=== PATIENT | female | born 1990 | race Caucasian/White ===

== ENCOUNTER 2019-08-22 09:29 | Emergency (ER) | payer SELFPAY ==
--- NOTE | 2019-08-22 09:44 | ED.GENADULT ---
HPI - General Adult General Chief complaint: Dental/Oral Stated complaint: swollen right side of face Source: patient and RN notes reviewed Mode of arrival: ambulatory Limitations: no limitations History of Present Illness HPI narrative: This is a 29 years old female presents to the office for an evaluation of facial swollen since this morning. She first noticed it last night when she went to sleep; but it was not as big. Denies facial trauma. Denies sinus congestion, fever, feeling malaise, nauseous, vomiting, or feeling ill. She is a smoker. Related Data Allergies Allergy/AdvReac Type Severity Reaction Status Date / Time No Known Allergies Allergy Unknown Verified 03/31/18 15:26 Review of Systems Review of Systems: Narrative: CONSTITUTIONAL: Denies fever,or feeling ill ENT: Denies rhinorrhea, congestion, sore throat, otalgia or dental pain. CARDIOVASCULAR: Denies chest pain RESPIRATORY: Denies dyspnea, cough GASTROINTESTINAL: Denies abdominal pain, nausea, vomiting, diarrhea. SKIN: Denies rash/insect bite MUSCULOSKELETAL: Denies joints pain NEUROLOGIC: Denies lightheaded PMFSH Social History Social History (Updated 08/22/19 @ 10:01 by MARLEY Vargas) Smoking status: Current every day smoker Comments At time of signature, I agree with nursing past medical, surgical, social and family history. There is no relevant family history pertinent to the presenting complaint. Exam Narrative: Exam Narrative: GENERAL: This is a well-nourished, well-developed patient, in no apparent distress. Right side facial appears swollen, tender to palpation without erythema or lymphadenititis. No TMJ tenderness. EYES: sclera clear/white. Vision is grossly intact. EARS: External ears normal, auditory canals clear and without drainage, TMs normal without perforation. Hearing grossly intact. NOSE: External nose normal with no obvious nasal discharge, nares without redness, no rhinorrhea. THROAT: Mucous membranes moist, posterior pharynx clear.Teeth are very carious throughout; no obvious gum swollen/tenderness. NECK: Neck supple, non-tender without lymphadenopathy, masses or thyromegaly. CARDIOVASCULAR: Regular rate and rhythm without murmurs, gallops, or rubs. RESPIRATORY: Clear to auscultation. Breath sounds equal bilaterally. No wheezes, rales, or rhonchi. GASTROINTESTINAL: Abdomen soft, non-tender, nondistended. Bowel sounds are active. No hepato-splenomegaly, or palpable masses. No guarding. NEURO: awake, alert, and oriented to person, place and time. There were no obvious focal neurologic abnormalities. Steady gait [place] Coma Scale Eye Opening: Spontaneous 4 [place] Coma Scale Motor: Obeys Commands 6 Karan Coma Scale Verbal: Oriented 5 Course Vital Signs Vital signs: Vital Signs Temperature 97.8 F 08/22/19 09:45 Pulse Rate 99 08/22/19 09:45 Respiratory Rate 16 08/22/19 09:45 Blood Pressure 140/64 08/22/19 09:45 Pulse Oximetry 99 08/22/19 09:45 Temperature 97.8 F 08/22/19 09:45 Pulse Rate 99 08/22/19 09:45 Respiratory Rate 16 08/22/19 09:45 Blood Pressure 140/64 08/22/19 09:45 Pulse Oximetry 99 08/22/19 09:45 Medical Decision Making MDM Narrative Medical decision making narrative: Prophylactic antibiotic provide based on patient risk factor which include smoking and poor dental hygienes. Discharge instructions reviewed with patient, as well as provided in writing per nursing staff. The instructions also include specific and strict return/GO TO THE ER as well as f/u information. All questions have been answered, and the patient deny any further questions with discharge and discharge plan. Differential Diagnosis Differential Diagnosis: Gingivitis, sinusitis, cellulitis, TMJ Vital Signs Vital Signs: Vital Signs Temperature 97.8 F 08/22/19 09:45 Pulse Rate 99 08/22/19 09:45 Respiratory Rate 16 08/22/19 09:45 Blood Pressure 140/64 08/22/19 09:45 Pulse Oxi
[2019-08-22 09:45] VITALS: BP 140/64; PULSE 99; RESP 16; TEMP 36.6; O2SAT 99
== END 2019-08-22 10:04 | disposition home or self-care (01) ==
PROVIDERS: Emergency Provider Nurse Practitioner; PCP Emergency Medicine
DX: K11.8 Other diseases of salivary glands (principal); F17.200 Nicotine dependence, unspecified, uncomplicated
CPT/HCPCS: 99213; G0463

== ENCOUNTER 2024-04-02 14:29 | Emergency (ER) | payer BC, SELFPAY ==
[2024-04-02 15:10] VITALS: BP 121/72; PULSE 89; RESP 20; TEMP 37.2; O2SAT 100
[2024-04-02 15:38] LABS: EDCOVIDSCREEN Negative (Negative); EDINFLUASCREEN Negative (Negative); EDINFLUBSCREEN Negative (Negative)
--- NOTE | 2024-04-02 15:40 | ED_ITS ---
HPI - URI/Sore Throat General Chief Complaint: Upper Respiratory Infection Stated Complaint: flu like symptoms Time Seen by Provider: 04/02/24 15:40 Source: patient, RN notes reviewed and old records reviewed Mode of arrival: ambulatory Limitations: no limitations History of Present Illness HPI Narrative: 33-year-old female presents to the [facility] with 5 day history of cough, congestion and body aches. Reports fever. Has taken both Tylenol cold medicine as well as Advil cold medicine. Onset (ago): day(s) (3) Related Data Home Medications ?Medication ?Instructions ?Recorded ?Confirmed ?Last Taken ?Type No Home Medications 04/02/24 04/02/24 Unknown History Allergies Allergy/AdvReac Type Severity Reaction Status Date / Time No Known Allergies Allergy Unknown Verified 04/02/24 15:28 Review of Systems Review of Systems: All systems reviewed & are unremarkable except as noted in HPI and below Constitutional: Constitutional: Reports as per HPI, Reports body ache(s) and Reports fever(s) ENT: Reports as per HPI Cardiovascular: Cardiovascular: Reports no additional cardiovascular complaints, Denies chest pain and Denies dyspnea Respiratory: Respiratory: Reports as per HPI, Denies chest congestion, Reports cough and Denies dyspnea Musculoskeletal: Musculoskeletal: Reports no additional musculoskeletal complaints Integumentary/Breasts: Skin/Breast: Reports system reviewed and no additional complaints, except as docu PMFSH Social History Social History Smoking status: Current every day smoker Comments At the time of my signature, I reviewed and agree with the nursing past medical, surgical, social, and family history. There is no relevant family history pertinent to the patient complaint. Exam Const: General: cooperative, healthy appearing, comfortable, no acute distress , well developed, alert and well nourished Nutritional Appearance: well nourished Orientation/consciousness: patient oriented x3 Limitations: no limitations HENMT: Head: normal to inspection Ears: hearing grossly normal bilaterally, external ears normal, TM's normal bilaterally, EAC's normal, mastoids normal and no periauricular adenopathy Mouth: Yes Normal oral and palatal mucosa present, Yes lip normal, Yes tongue normal and Yes moist mucous membranes Throat: posterior oropharynx normal, uvula midline, postnasal drainage and no uvular edema Eyes: General: appearance normal, both eyes and all related structures Alignment and Position: alignment normal Neck: Neck: normal visual inspection, full ROM, no lymphadenopathy and no meningeal signs Chest: Chest palpation & inspection: normal inspection of the chest Resp: Effort & Inspection: normal respiratory effort and able to speak in complete sentences Auscultation: clear to auscultation bilaterally, no crackles, no rales, no rhonchi and no wheezes Cardio: Rate: regular rate Skin: General skin exam: normal color and no rashes or lesions noted Neuro: General: patient oriented x3, gait normal, moves all extremities and no meningeal signs Cognition (Neuro): normal cognition Speech: normal speech Gait exam (Neuro): Normal gait present Extrem: General: normal to inspection, full ROM, capillary refill normal and normal gait Psych: Appearance: grossly normal and well kempt Mental Status: mental status grossly normal Speech and movement: Normal speech and movement present and Clear speech present Affect: normal affect Attitude: cooperative Course Course Level of Care: Express Care Visit Vital Signs Vital signs: Vital Signs Temperature 99 F 04/02/24 15:10 Pulse Rate 89 04/02/24 15:10 Respiratory Rate 20 04/02/24 15:10 Blood Pressure 121/72 04/02/24 15:10 Pulse Oximetry 100 04/02/24 15:10 Oxygen Delivery Room Air 04/02/24 15:10 Temperature 99 F 04/02/24 15:10 Pulse Rate 89 04/02/24 15:10 Respiratory Rate 20 04/02/24 15:10 Blood Pressure 121/72 04/02/24 15:10 Pulse Oximetry 100 04/02/24 15:10 Oxygen Delivery Room Air 04/02/24 15:10 Reviewed MDM - URI/Sore Throat MDM Narrative Medical decision making narrative: Patient sitting comfortably in exam room. Nontoxic, vitals stable. Patient in no acute distress. Patient presents with 5 day history of URI symptoms. Flu and COVID are negative. No acute findings noted on exam. Patient appropriate for outpatient treatment and follow-up Discharge instructions reviewed with patient, as well as provided in writing per nursing staff. The instructions also include specific and strict return/GO TO THE ER as well as f/u information. All questions have been answered, and the patient deny any further questions with discharge and discharge plan. Some parts of this dictation were generated by voice recognition software and may contain typographical and/or grammatical inaccuracies. Differential Diagnosis Differential diagnosis: Likely upper respiratory infection, otitis media, sinusitis, viral infection, bronchitis and influenza Lab Data Labs: Lab Results 04/02/24 Range/Units 15:15 POC Influenza A Ag Negative (Negative) POC Influenza B Ag Negative (Negative) POC SARS CoV-2 Ag Negative (Negative) Reviewed Critical Care Time Critical Care Time Critical Care Time: No Discharge Plan Discharge Clinical Impression: Upper respiratory infection Qualifiers: URI type: unspecified viral URI Qualified Code(s): J06.9 - Acute upper respiratory infection, unspecified Patient Disposition: Home, Self-Care Condition: Stable Instructions: Antibiotic Form, Upper Respiratory Infection (DC) Additional Instructions: Your rapid COVID test were negative Your rapid flu test was negative Your symptoms are likely due to a viral illness, which is not treated with antibiotics. Typically viral infections last 7-10 days, can linger for couple of weeks. It is very important to treat your symptoms. Drink plenty of water, Gatorade, Pedialyte, ice pops or Jell-O. -Alternate Tylenol and Motrin per package directions for fever or pain. You can alternate every 4 hours -Antihistamine medication such as Zyrtec/Claritin/Akua during the day can help improve symptoms. -doing daily nasal irrigations can help relieve pressure your sinuses. Things like a Neti pot -Use Flonase twice a day for 5 days then daily to help reduce the inflammation and dry up your sinuses. -You can also use Mucinex. Be sure to drink plenty of water with this medicat ion at least 8 ounces with every dose and it is important to drink 8 to 10 glasses of water per day. Water is a natural decongestant -Eat and drink things that are easy to swallow, like tea or soup, or popsicles. -Oral rinses such as: Salt water gargles and/or may use topical anesthetic (eg. Chloraseptic spray) or lozenges to relieve dryness or throat pain). -Frequent hand washing or hand director veterinary is one of the best ways to prevent spread of infection. -Using a vaporizer or humidifier at night will also help thin secretions and help with coughing up phlegm. -Follow up with primary care provider in 7-10 days if condition is not improving - For new or worsening symptoms go directly to the nearest ER Patient Language: Slovak Prescriptions: No Action No Home Medications Follow-up/Referrals: Jay Barrett MD [Primary Care Provider] - Stand Alone Forms: Work/School Release IP Time of Disposition: 15:56
--- OUTSIDE RECORDS SUMMARY | 2024-04-09 23:32 | XMS_ITS | Referral Summary ---
Author Organization [address] Address [facility] [place] [address] Care Team Providers Care Employee Benefits Director Name Role Phone Jay Barrett MD Primary Care Provider [phone] Allergies No known active allergies Medications naproxen (NAPROSYN) 500 mg tablet Take 1 tablet (500 mg total) by mouth 2 (two) times a day with meals 30 tablet 08/20/2023 Active chlorhexidine (PERIDEX) 0.12 % solution Apply 15 mL to the mouth or throat 2 (two) times a day 120 mL 08/20/2023 Active traMADoL (ULTRAM) 50 mg tablet Take 1 tablet (50 mg total) by mouth every 6 (six) hours for 3 days 12 tablet 08/20/2023 Active Active Problems Problem Noted Date Diagnosed Date Pityriasis versicolor 06/08/2023 Immunizations Name Administration Dates Next Due DT 10/19/1995 DTP 08/17/1995, 1,1990,10/27 Hep A, Unspecified 10/15/2000 Hep B, Adolescent or Pediatric 01/28/1996,1995,08/17/1995 HiB 11/15/1991, 1,1990,09/29 Influenza, Quadrivalent, Eloise l Culture-based MDCK, Preservative Free, Antibiotic Free, Intramuscular 12/19/2019 Influenza, Quadrivalent, Spl it, Preservative Free, Intramuscular 01/24/2018,01/23/2018 Influenza, Trivalent, IM (MDV) 04/12/2013 Influenza, Trivalent, Preser vative Free, Intramuscular 01/13/2017 Influenza, Whole 02/07/2005 MMR 08/17/1995,11/15/1991 OPV 10/19/1995, 6,1990,09/29 Tdap 08/15/2014 Social History Tobacco Use Types Packs/Day Years Used Date Smoking Tobacco: Every Day Cigarettes 0.5 14 Started: 2010 Personal Safety Answer Date Recorded Have you ever been in or are you currently in a harmful physical or emotional relationship or is someone making you feel afraid or unsafe? 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 Gender Identity Not on file Sexual Orientation Not on file Occupation Industry Job Start Date Job End Date [employer] Not on file Not on file Not o n file Last Filed Vital Signs Vital Sign Reading Time Taken Comments Blood Pressure 145/97 08/20/2023 8:00 AM CDT Pulse 106 08/20/2023 8:12 AM CDT Temperature 36.9 ??C (98.4 ??F) 08/20/2023 8:00 AM CD T Respiratory Rate 18 08/20/2023 8:00 AM CDT Oxygen Saturation 100% 08/20/2023 8:00 AM CDT Inhaled Oxygen Concentration - - Weight 81.6 kg (180 lb) 08/20/2023 8:00 AM CDT Height 170.2 cm (5' 7 ) 08/20/2023 8:00 AM CDT Body Mass Index 28.19 08/20/2023 8:00 AM CDT Plan of Treatment Not on file Procedures Procedure Name Priority Date/Time Associated Diagnosis Comments HIGH RISK HPV DNA DETECTION WITH GENOTYPING Routine 06/11/2023 10:55 AM CDT Screening for malignant neoplasm of cervix from Last 3 Months or Most Recently Relevant to Health Maintenance Results * (ABNORMAL) High Risk HPV DNA Detection with Genotyping (Molecular component) (06/11/2023 10:55 AM CDT) HPV HR 16 Not Detected Not Detected [facility] Comment:Testing performed by : [facility], [address] [place]., [address] HPV HR 18 Not Detected Not Detected [facility] Comment:Testing performed by : [facility], [address] [place]., [address] HPV HR Non 16/18 Detected(A) Not Detected [facility] Comment: Interpretive Data Nucleic acid amplification for detection of high-risk Human Papilloma virus (HPV) is performed by the Chanel Lazaro 6800 HPV test. ??This assay specifically detects HPV-16 and HPV-18 genotypes. ??The following HPV genotypes are detected as high-risk HPV: ?? HPV-31, 33, 35, ,39, 45, 51, 52, 56, 58, 59, 66, and 68. ??This assay has been approved by the [place] Food and Drug Administration for detection of HPV in cervical specimens collected by a physician using an endocervical brush/spatula or cervical broom and placed in the ThinPrep Pap Test PreservCyt collection containers. ??The performance characteristics of this test have been verified by the [facility] Molecular Infectious Disease laboratory. Correlate with separately reported cytology results, as applicable. Interpretive data last revised 22 Testing performed by: [facility], [address] [place]., [address] Endocervical 06/11/2023 10:5 5 AM CDT 06/12/2023 12:07 PM CDT Narrative [facility] - 06/13/2023 1:42 AM CDT Clinical history and diagnosis->Liquid-based PAP test with high risk HPV test- Z12.4 Number of vials->1 Testing type->Screening Last menstrual period (date if known)->05/17/23 Erma Galeano DO LAB BODY FLUIDS AND STO OLS ORDERABLES Final Result [facility] [id number] Department [place] [address] [facility] from Last 3 Months or Most Recently Relevant to Health Maintenance Insurance [employer] Care Teams Employee Benefits Director Relationship Specialty Start Date End Date Jay Barrett MD PCP - General 06/21/18
--- OUTSIDE RECORDS SUMMARY | 2024-04-09 23:32 | XMS_ITS | Clinical Summary ---
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 Gender Identity Not on file Sexual Orientation Not on file Occupation Industry Job Start Date Job End Date [employer] Not on file Not on file Not o n file Obstetrics History Para Term AB IAB SAB Ectopic Multiple Livin g Live Births 2 2 2 2 2 Date Outcome GA Total Labor Labor/2nd/3rd Weight Sex Type Anes PTL Roxie A1 A5 Name Clin 11/12 Term 40w 0d 3.402 kg (7 lb 8 oz) M Vaginal Living Complications:None 05/26 Term 42w 0d 3.459 kg (7 lb 10 oz) F Vaginal Living Complications:None Last Filed Vital Signs Vital Sign Reading [...] 08/20/2023 8:00 AM CDT Plan of Treatment Health Maintenance Due Date Last Done Comments Depression Screening 1990 Hepatitis C Screening 1990 Pneumococcal vaccine <65 (1 of 2 - PCV) 1996 Varicella Vaccines (1 of 2 - 13+ 2-dose series) 07/23/2003 Covid-19 Vaccine (3 - season) 2023 09/07/2020, 08/17/2020 Influenza Vaccine (#1) 2023 0, 01/24/2018, 01/23/2018, Additional history exists Cervical Cancer Screening 06/10/2024 06/11/2023, Regular Well Visit/Exam 18-64 06/10/2024 06/11/2023 DTaP/Tdap/Td Vaccine (6 - Td or Tdap) 08/15/2024 08/15/2014, 10/19/1995, 08/17/1995, Additional history exists HPV Vaccines Aged Out No longer eligi ble based on patient's age to complete this topic Procedures Procedure Name Priority Date/Time Associated Diagnosis Comments HIGH RISK HPV DNA DETECTION WITH GENOTYPING Routine 06/11/2023 10:55 AM CDT Screening for malignant neoplasm of cervix from Last 3 Months or Most Recently Relevant to Health Maintenance Results * (ABNORMAL) High Risk HPV DNA Detection with Genotyping (Molecular component) (06/11/2023 10:55 AM CDT) HPV HR 16 Not Detected Not Detected [facility] Comment:Testing performed by : [facility], [address] [place]., [address] HPV HR 18 Not Detected Not Detected [facility] Comment:Testing performed by : [facility], [address] [facility], [place] [address], [place] [address] HPV HR Non 16/18 Detected(A) Not Detected [facility] Comment: Interpretive Data Nucleic acid amplification for [...] this test have been verified by the [facility] Molecular Infectious Disease laboratory. Correlate with separately reported cytology results, as applicable. Interpretive data last revised 22 Testing performed by: [facility], [address] [place]., [address] Endocervical 06/11/2023 10:5 5 AM CDT 06/12/2023 12:07 PM CDT [facility] - 06/13/2023 1:42 AM CDT Clinical history and diagnosis->Liquid-based PAP test with high risk HPV test- Z12.4 Number of vials->1 Testing type->Screening Last menstrual period (date if known)->05/17/23 Erma Galeano DO LAB BODY FLUIDS AND STO OLS ORDERABLES Final Result [facility] [id number] Department [place] [address] [facility] from Last 3 Months or Most Recently Relevant to Health Maintenance Insurance [facility] CHOICE PLUS Care Teams Firefighter Type One Relationship Specialty Start Date End Date Jay Barrett MD PCP - General 06/21/18
--- OUTSIDE RECORDS SUMMARY | 2024-04-09 23:32 | XMS_ITS | Data Portability ---
Author Organization [facility] Address [address] [place] [address] Assessment No assessment recorded. Plan of Treatment Reminders Order Date Submit Date Provider Last Modified By Organization Details Last Modified Time Details Appointments None recorded. Lab lipid panel, serum 2014 015 [facility], [address] [place] [address], [address], [place], [address], 5 06:29:07 TSH, serum or plasma 2014 015 [facility], [address] [place] [address], [address], [place], [address], 5 06:29:07 CBC w/ auto diff 2014 015 [facility], [address] [place] [address], [address], [place], [address], 5 06:29:04 CMP, serum or plasma 2014 015 [facility], [address] [place] [address], [address], [place], [address], 5 06:29:06 pap, IG + CT/NG/TV + reflex HR HPV 2017 018 [facility] ([facility] [address] [place], [address], 8 22:33:57 Referral None recorded. Procedures None recorded. Surgeries None recorded. Imaging None recorded. Medication Orders nicotine 14 mg/24 hr daily transderma l patch 2017 018 [id number], [address] [facility], [place], [place], [id number], 8 15:42:02 Patient TargetsNo targets recorded. Patient Instructions Encounter Date Encounter Id Patient Instructions Last Modified By Organization Details Last Modified Time 08/15/2014 [id number] rash: care instructions dbogue Not available 08/15/2014 10:40:11 tinea versicolor : care instructions dbogue Not available 08/15/2014 10:40:12 06/12/2017 [id number] Quitting Tobacco : Care Instructions [email or web address] Not available 06/12/2017 15:41:57 26y presents for contraception counseling 1.) Contraception ? desires BTL, WILL consent signed today, currently on Depo, pt concerned about bleeding episodes on Depo 2.) Will return for annual and pap 3.) Tob use ? discussed cessation, Rx: nicotine patch 4.) BMI - Assessed pt readiness to make lifestyle changes to achieve weight loss. Determined weight loss goals and intervention strategies (diet, physical activity, behavioral modification). 5.) s/p flu vaccine 6.) RTC in 2wks for annual 7.) A total of 30 minutes was spent with the patient where more than 50% of face to face time was spent in counseling/coordin ation of care. [email or web address] Not available 06/13/2017 12:12:11 06/25/2017 [id number] 26y presents for annual exam 1.) Annual exam - Reviewed self-breast exam techniques. No CBE performed at this annual (in accordance with ACOG, ACS, and the National Comprehensive Cancer Network recommendation of a clinical breast examination for women age 20-39 every 1? 3 years). Pap and pelvic performed 2.) Contraception ? desires BTL, WILL consent signed 06/12/17 3.) Tob use ? discussed cessation, Rx: nicotine patch at last visit 4.) STI screening ? declined, but willing to get ct/gc 5.) RTC in 12 months [email or web address] Not available 06/25/2017 18:56:44 07/31/2017 [id number] 27y s/p L/S BTL on 07/17/17 1.) PO ? doing well 2.) Contraception ? B TL 3.) Tob use ? discussed cessation, on nicotine patch 4.) RTC in 12 months Not available 07/31/2017 14:06:28 Reason for Referral None Reported. Results Created Date Observation Date Name Description Value Unit Range Abnormal Flag Note LastModifiedBy Organization Detail LastModifiedTime 08/16/19 15 08/15/2014 CBC w/ auto diff WBC 5.1 x10e3 /uL 3.4-10 .8 Not Available [facility] ([facility]) [address] [place], [address], 08/16/2014 06:29:04 08/16/19 15 08/15/2014 CBC w/ auto diff RBC 4.83 x10e6 /uL 3.77-5 .28 Not Available [facility] ([facility]) [address] [place], [address], 08/16/2014 06:29:04 08/16/19 15 08/15/2014 CBC w/ auto diff hemoglobin 14.8 g/dL 11.1-1 5.9 Not Available [facility] ([facility]) [address] [place], [address], 08/16/2014 06:29:04 08/16/19 15 08/15/2014 CBC w/ auto diff hematocrit 43.1 % 34.0-4 6.6 Not Available [facility] ([facility]) [address] [place], [address], 08/16/2014 06:29:04 08/16/19 15 08/15/2014 CBC w/ auto diff MCV 89 fL 79-97 Not Available [facility] ([facility]) [address] [place], [address], 08/16/2014 06:29:04 08/16/19 15 08/15/2014 CBC w/ auto diff MCH 30.6 pg 26.6-3 3.0 Not Available [facility] ([facility]) [address] [facility], [place], [address], 08/16/2014 06:29:04 08/16/19 15 08/15/2014 CBC w/ auto diff MCHC 34.3 g/dL 31.5-3 5.7 Not Available [facility] ([facility]) [address] [facility], [place], [address], 08/16/2014 06:29:04 08/16/19 15 08/15/2014 CBC w/ auto diff RDW 13.3 % 12.3-1 5.4 Not Available [facility] ([facility]) [address] [place], [address], 08/16/2014 06:29:04 08/16/19 15 08/15/2014 CBC w/ auto diff neutrophils 51 % Not Available [facility] ([facility]) [address] [place], [address], 08/16/2014 06:29:04 08/16/19 15 08/15/2014 CBC w/ auto diff lymphs 42 % Not Available [facility] ([facility]) [address] [place], [address], 08/16/2014 06:29:04 08/16/19 15 08/15/2014 CBC w/ auto diff monocytes 6 % Not Available [facility] ([facility]) [address] [place], [address], 08/16/2014 06:29:04 08/16/19 15 08/15/2014 CBC w/ auto diff eos 1 % Not Available [facility] ([facility]) [address] [place], [address], 08/16/2014 06:29:04 08/16/19 15 08/15/2014 CBC w/ auto diff basos 0 % Not Available [facility] ([facility]) [address] [place], [address], 08/16/2014 06:29:04 08/16/19 15 08/15/2014 CBC w/ auto diff immature cells GUEST ATTENDANT Not Available [facility] ([facility]) [address] [place], [address], 08/16/2014 06:29:04 08/16/19 15 08/15/2014 CBC w/ auto diff neutrophils (absolute) 2.6 x10e3 /uL 1.4-7. 0 Not Available [facility] ([facility]) [address] [place], [address], 08/16/2014 06:29:04 08/16/19 15 08/15/2014 CBC w/ auto diff lymphs (absolute) 2.2 x10e3 /uL 0.7-3. 1 Not Available [facility] ([facility]) [address] [place], [address], 08/16/2014 06:29:04 08/16/19 15 08/15/2014 CBC w/ auto diff monocytes(ab solute) 0.3 x10e3 /uL 0.1-0. 9 Not Available [facility] ([facility]) [address] [place], [address], 08/16/2014 06:29:04 08/16/19 15 08/15/2014 CBC w/ auto diff eos (absolute) 0.1 x10e3 /uL 0.0-0. 4 Not Available [facility] ([facility]) [address] [place], [address], 08/16/2014 06:29:04 08/16/19 15 08/15/2014 CBC w/ auto diff baso (absolute) 0.0 x10e3 /uL 0.0-0. 2 Not Available [facility] ([facility]) [address] [place], [address], 08/16/2014 06:29:04 08/16/19 15 08/15/2014 CBC w/ auto diff immature granulocytes 0 % Not Available [facility]) [address] [facility] [place], [address], 08/16/2014 06:29:04 08/16/19 15 08/15/2014 CBC w/ auto diff immature grans (abs) 0.0 x10e3 /uL 0.0-0. 1 Not Available [facility] ([facility]) [address] [facility], [place], [address], 08/16/2014 06:29:04 08/16/19 15 08/15/2014 CBC w/ auto diff NRBC GUEST ATTENDANT Not Available [facility] ([facility]) [address] [place], [address], 08/16/2014 06:29:04 08/16/19 15 08/15/2014 CBC w/ auto diff hematology comments: GUEST ATTENDANT Not Available [facility] ([facility]) [address] [facility], [place], [address], 08/16/2014 06:29:04 08/16/19 15 08/16/2014 CMP, serum or plasm a glucose, serum 95 mg/dL 65-99 Not Available [facility] ([facility]) [address] [place], [address], 08/16/2014 06:29:05 08/16/19 15 08/16/2014 CMP, serum or plasm a BUN 7 mg/dL 6-20 Not Available [facility] ([facility]) [address] [place], [address], 08/16/2014 06:29:05 08/16/19 15 08/16/2014 CMP, serum or plasm a creatinine, serum 0.74 mg/dL 0.57-1 .00 Not Available [facility] ([facility]) [address] [place], [address], 08/16/2014 06:29:05 08/16/19 15 08/16/2014 CMP, serum or plasm a eGFR if nonafricn AM 114 mL/mi n/1.7 3 >59 Not Available [facility] ([facility]) [address] [place], [address], 08/16/2014 06:29:05 08/16/19 15 08/16/2014 CMP, serum or plasm a eGFR if africn AM 131 mL/mi n/1.7 3 >59 Not Available [facility] ([facility]) [address] [place], [address], 08/16/2014 06:29:05 08/16/19 15 08/16/2014 CMP, serum or plasm a BUN/creatini ne ratio 9 8-20 Not Available [facility] ([facility]) [address] [place], [address], 08/16/2014 06:29:05 08/16/19 15 08/16/2014 CMP, serum or plasm a sodium, serum 144 mmol/ L 134-14 4 Not Available [facility] ([facility]) [address] [place], [address], 08/16/2014 06:29:05 08/16/19 15 08/16/2014 CMP, serum or plasm a potassium, serum 4.1 mmol/ L 3.5-5. 2 Not Available [facility] ([facility]) [address] [place], [address], 08/16/2014 06:29:05 08/16/19 15 08/16/2014 CMP, serum or plasm a chloride, serum 105 mmol/ L 97-108 Not Available [facility] ([facility]) [address] [place], [address], 08/16/2014 06:29:05 08/16/19 15 08/16/2014 CMP, serum or plasm a carbon dioxide, total 22 mmol/ L 18-29 Not Available [facility] ([facility]) [address] [facility] [place], [address], 08/16/2014 06:29:05 08/16/1908/16/2014 CMP, serum or plasm a calcium, serum 9.5 mg/dL 8.7-10 .2 Not Available [facility] ([facility]) [address] [facility] [place], [address], 08/16/2014 06:29:05 08/16/19 15 08/16/2014 CMP, serum or plasm a protein, total, serum 6.8 g/dL 6.0-8. 5 Not Available [facility] ([facility]) [address] [facility] [place] [place], [address], 08/16/2014 06:29:05 08/16/19 15 08/16/2014 CMP, serum or plasm a albumin, serum 4.4 g/dL 3.5-5. 5 Not Available [facility] ([facility]) [address] [facility] [place] [place], [address], 08/16/2014 06:29:05 08/16/19 15 08/16/2014 CMP, serum or plasm a globulin, total 2.4 g/dL 1.5-4. 5 Not Available [facility] ([facility]) [address] [facility] [place] [place], [address], 08/16/2014 06:29:05 08/16/19 15 08/16/2014 CMP, serum or plasm a A/G ratio 1.8 1.1-2. 5 Not Available [facility] ([facility]) [address] [facility] [place] [place], [address], 08/16/2014 06:29:05 08/16/19 15 08/16/2014 CMP, serum or plasm a bilirubin, total 0.4 mg/dL 0.0-1. 2 Not Available [facility] ([facility]) [address] [facility] [place] [place], [address], 08/16/2014 06:29:05 08/16/19 15 08/16/2014 CMP, serum or plasm a alkaline phosphatase, S 58 IU/L 39-117 Not Available [facility] ([facility]) [address] [place], [address], 08/16/2014 06:29:05 08/16/19 15 08/16/2014 CMP, serum or plasm a AST (SGOT) 15 IU/L 0-40 Not Available [facility] ([facility]) [address] [facility], [place], [address], 08/16/2014 06:29:05 08/16/19 15 08/16/2014 CMP, serum or plasm a ALT (SGPT) 7 IU/L 0-32 Not Available [facility] ([facility]) [address] [place], [address], 08/16/2014 06:29:05 08/16/19 15 08/16/2014 lipid panel , serum cholesterol, total 136 mg/dL 100-18 9 Not Available [facility] ([facility]) [address] [place], [address], 08/16/2014 06:29:06 08/16/19 15 08/16/2014 lipid panel , serum triglyceride s 73 mg/dL 0-114 Not Available [facility] ([facility]) [address] [place], [address], 08/16/2014 06:29:06 08/16/19 15 08/16/2014 lipid panel , serum HDL cholesterol 35 mg/dL >39 low ACCOR DING TO ATP-I II GUIDE LINES , HDL-C >59 MG/DL IS CONSI DERED A NEGAT KYARA RISK FACTO R FOR CHD. Not Available [facility] ([facility]) [address] [place], [address], 08/16/2014 06:29:06 08/16/19 15 08/16/2014 lipid panel , serum VLDL cholesterol colin 15 mg/dL 5-40 Not Available [facility] ([facility]) [address] [facility], [place], [address], 08/16/2014 06:29:06 08/16/19 15 08/16/2014 lipid panel , serum LDL cholesterol calc 86 mg/dL 0-119 Not Available [facility] ([facility]) [address] [facility], [place], [address], 08/16/2014 06:29:06 08/16/19 15 08/16/2014 lipid panel , serum comment: GUEST ATTENDANT Not Available [facility] ([facility]) [address] [facility], [place], [address], 08/16/2014 06:29:06 08/16/19 15 08/16/2014 TSH, serum or plasm a TSH 1.610 uIU/m L 0.450- 4.500 Not Available [facility] ([facility]) [address] [facility], [place], [address], 08/16/2014 06:29:07 06/26/19 18 06/30/2017 pap, IG + CT/NG /TV + refle x HR HPV diagnosis: [facility] NEGAT KYARA FOR INTRA EPITH ELIAL LESIO N AND OUMAR KARIMI . Perfo rmed at: WB Not Available [facility] (Lab) [address] [place], [address], 06/30/2017 22:33:57 06/26/19 18 06/30/2017 pap, IG + CT/NG /TV + refle x HR HPV specimen adequacy: [facility] Satis facto ry for evalu ation . Endoc ervic al and/o r squam ous metap lasti c cells (endo cervi colin compo nent) are prese nt. Perfo rmed at: WB Not Available [facility] ([facility]) [address] [place], [address], 06/30/2017 22:33:57 06/26/19 18 06/30/2017 pap, IG + CT/NG /TV + refle x HR HPV performed by: [facility] Fatmata Squires , José Miguel echno logis t Perfo rmed at: WB Not Available [facility] (Lab) [address] [place], [address], 06/30/2017 22:33:57 06/26/19 18 06/30/2017 pap, IG + CT/NG /TV + refle x HR HPV Pap smear, 1 slide . Perfo rmed at: WB Not Available [facility] (Lab) [address] [facility], [place], [address], 06/30/2017 22:33:57 06/26/19 18 06/30/2017 pap, IG + CT/NG /TV + refle x HR HPV note: PAPSMR The Pap smear is a scree dalton test desig cassidy to aid in the detec tion of farhat ligna nt and malig nant condi tions of the uteri ne cervi x. It is not a diagn ostic proce dure and shoul d not be used as the sole means of detec ting cervi colin cance r. Both false -posi tive and false -nega tive repor ts do occur . . Perfo rmed at: WB Not Available [facility] (Lab) [address] [facility], [place], [address], 06/30/2017 22:33:57 06/26/19 18 06/30/2017 pap, IG + CT/NG /TV + refle x HR HPV test methodology: IGLPAP This liqui d based ThinP rep(R ) pap test was scree cassidy with the use of an image guide d terrance cadena. Perfo rmed at: WB Not Available [facility] (Lab) [address] [place], [address], 06/30/2017 22:33:57 06/26/19 18 06/30/2017 pap, IG + CT/NG /TV + refle x HR HPV comments NEGHPV The HPV DNA refle x crite santos were not met with this speci men resul t there fore, no HPV testi ng was perfo rmed. . Perfo rmed at: WB Not Available [facility] (Lab) [address] [facility], [place], [address], 06/30/2017 22:33:57 06/26/19 18 06/30/2017 pap, IG + CT/NG /TV + refle x HR HPV chlamydia, nuc. acid Negati ve negati ve Perfo rmed at: =G Not Available [facility] (Lab) [address] [facility], [place], [address], 06/30/2017 22:33:57 06/26/19 18 06/30/2017 pap, IG + CT/NG /TV + refle x HR HPV gonococcus, nuc. acid amp Negati ve negati ve Perfo rmed at: =G Not Available [facility] (Lab) [address] [facility], [place], [address], 06/30/2017 22:33:57 06/26/19 18 06/30/2017 pap, IG + CT/NG /TV + refle x HR HPV trich vag by ISAIAS Negati ve negati ve Perfo rmed at: =G Not Available [facility] (Lab) [address] [place], [address], 06/30/2017 22:33:57 Result Notes None recorded. Problems Name Problem SNOMED Code Status Onset Date Resolution Date Notes Provider Name and Address Organization Details Recorded Time Pityriasis versicolor 41571493 Active Nicole tripp [facility] 5 10:40:11 Problem Notes None recorded. Procedures Surgical History Date Name Laterality Status Provider Name and Address Organization Details Recorded Time 03/30/19 09 Cholecystectomy completed Howard Grossman MA [place] [facility] 08/15/2014 10:02:52 Imaging Results None recorded. Procedure Notes None recorded. Medical Equipment None Reported. Allergies No known drug allergies Medications Name Sig Start Date Stop Date Status Note LastModified by Organization Details LastModified Time xulane dis 150-35xulane active Not Available Not Available Not Available amoxicillin tab 875mgamoxici llin active Not Available Not Available Not Available medroxypr ac inj 150mg/mlmedr oxyprogester one acetate active Not Available Not Available Not Available Colace 100 mg capsule Take 1 capsule every 12 hours by oral route. 2017 active Not Available Not Available Not Avai lable nicotine 14 mg/24 hr daily transdermal patch Apply 1 patch every day by transdermal route. active Not Available Not Available No t Available famotidine 40 mg tablet active Not Available Not Available Not Available prednisone 20 mg tablet active Not Available Not Available Not Available Banophen 25 mg capsule active Not Available Not Available N ot Available amoxicillin 875 mg-potassium clavulanate 125 mg tablet active Not Available Not Available Not Available Fluvirin (PF) 45 mcg(15 mcg x3)/0.5 mL intramuscula r syringe active Not Available Not Available No t Available Vitals Date Recorded Body height Body mass index (BMI) Body weight Systolic blood pressure Diastolic blood pressure Provider Name and Address Organization Details Last Updated DateTime 06/12/2017 170.18 cm 31.5 kg/m2 67577.07 g 120 mm[Hg] 70 mm[Hg] Mei Jacob MA [facility] 8 15:00:46 Date Recorded Body height Body mass index (BMI) Body weight Systolic blood pressure Diastolic blood pressure Provider Name and Address Organization Details Last Updated DateTime 06/25/2017 170.18 cm 31.5 kg/m2 26937.07 g 104 mm[Hg] 70 mm[Hg] Gely To RN [facility] 8 09:57:39 Date Recorded Body height Body mass index (BMI) Body weight Systolic blood pressure Diastolic blood pressure Provider Name and Address Organization Details Last Updated DateTime 07/31/2017 170.18 cm 31.8 kg/m2 38769.25 g 110 mm[Hg] 80 mm[Hg] Abhishek Haynes [facility] 8 11:09:46 Date Recorded Oxygen saturation Oxygen saturation in Arterial blood by Pulse oximetry Body weight Body temperature Heart rate Body mass index (BMI) Body height Systolic blood pressure Diastolic blood pressure Provider Name and Address Organization Details Last Updated DateTime 5 100 % 100 % 08649.1 70285 g 98.9 [degF] 95 /min 23.1 kg/m2 170.18 cm 116 mm[Hg] 68 mm[Hg] Howard Grossman MA [facility] 5 10:02:52 Social History Question Answer Notes LastModified by Organizat ion Details LastModified Time Tobacco Smoking Status Current Every Day Smoker Howard Grossman MA null, [facility] 08/15/2014 10:02:52 What Is Your Level Of Alcohol Consumption? None Information not available 08/15/2014 What Is Your Level Of Caffeine Consumption? Moderate [email or web address] Information not available 08/15/2014 What Was The Date Of Your Most Recent Tobacco Screening? 06/25/2017 Information not available 10/21/2018 How Much Tobacco Do You Smoke? 0.5 PPD [email or web address] Information not available 08/15/2014 General Stress Level High [email or web address] Information not available 08/15/2014 Sex: Unknown Functional Status Question Answer Note LastModified by Organization D etails LastModified Time What is your exercise level? None [email or web address] Information not available 08/15/2014 Mental Status None recorded. Family History Relationship Description Onset Age of this Age Resolved Age Notes LastModified by Organization Details LastModified Time Brother Diabetes mellitus [email or web address] Not available 2014 10:02:52 Father Hypertensive disorder [email or web address] Not available 2014 10:02:52 Father Hypercholest erolemia [email or web address] Not available 2014 10:02:52 Medical History Condition Response Coronary Artery Disease N Other N Atrial Fibrillation N High Blood Pressure N Depression N COPD N Blood Clots N Anxiety Disorder N Muscle, Joint, or Bone Problems N Acid Reflux (GERD) N Cancer N Stroke N High Cholesterol N Liver Disease N Headaches N Kidney or Bladder Problems N Thyroid Problems N GI Problems N Skin Problems N Anemia N Heart Attack (MT) N Diabetes N Seizures/Epilepsy N Asthma N Allergies N Hepatitis N Osteoporosis N Heart Failure N Gynecological History Statement/Question Response Duration of Flow (days) 21 Sexual Problems? N Current Control Method Tubal Ligat ion Flow Heavy LMP Unknown Sexually Active? Y Obstetrics History GPAL:G 2 P 2 0 0 2 Type Value Full Term 2 Living 2 Total 2 Immunizations Vaccine Type Date Status Note Provider Nam e and Address Organization Details Recorded Time Tdap 08/15/2014 completed Not Available [facility] 04/16/2019 02:30:17 Past Encounters Encounter ID Performer Location Encounter Start Date Encounter Closed Date Diagnosis/Indication Diagnosis SNOMED-CT Code Diagnosis ICD10 Code Diagnosis Note [id number] [place] (Adult Med) [address] [place] [address] 08/15/2014 09:46:04 08/15/2014 10:44:26 Adult health examination 156507746 Encouraged well balanced meals, active lifestyle, and routine vision, dental and transitions manager rn exams. Hyperlipid emia screening 535447053 Diabetes m ellitus screening 260213668 Thyroid di sorder screening 933443072 Anemia screening 277685507 Pityriasis versicolor 42179881 Use otc selsun blue as body wash and scrub areas. Handout given to patient. Avoid moist clothing. Active or passive immunization [id number] José Miguel Guo MD [facility] (LICENSED PRACTICAL NURSE) [address] [place] [address] 06/12/2017 14:25:34 06/18/2017 01:30:45 Tobacco user 156760524 Z72.0 Contraception care 10811 5005 Z30.40 [id number] José Miguel Guo MD [facility] (LICENSED PRACTICAL NURSE) [address] [place] [address] 06/25/2017 09:38:07 06/26/2017 09:36:52 Gynecologic examination 00677322 Z01.429 [id number] José Miguel Guo MD [facility] (LICENSED PRACTICAL NURSE) [address] [place] [address] 07/31/2017 11:01:10 07/31/2017 14:13:33 Postoperative visit 610821739 Z09 Health Concerns Section Related Observation LastModified by Organization Detai ls LastModified Time None Recorded Concern Status LastModified by Organization Details LastModified Time None Recorded Advance Directives Directive None Recorded Payers Encounter Date Sequence Insurance Name Policy Number Policy Garcias Covered Member ID Garcias Member ID Guarantor Name 08/15/2014 1 FORMERLY [facility] (MEDICAID HMO) Malika Wagner [id number] Malika Wagner 06/12/2017 1 FORMERLY [facility] (MEDICAID HMO) Malika Wagner [id number] Malika Wagner 06/25/2017 1 FORMERLY [facility] (MEDICAID HMO) Malika Wagner [id number] Malika Wagner 07/31/2017 1 FORMERLY [facility] (MEDICAID HMO) Malika Wagner [id number] Malika Wagner Notes Date Note Type Note Provider Name and Address Organization Details Recorded Time 08/15/2014 text/html Tdap: 9th grade physical 10 years ago 2004 FLu: every fall Dental: >3 years Vision: 2011 Last PCP: Juan Antonio Lujan at [facility] 6 years ago last seen. Nicole tripp, [place] - [facility] 08/15/2014 10:40:27 06/12/2017 text/html 26y presents for contraception counseling. The pt has been on Depo for sometime. She states that with her last 3 periods she has bled heavily for 5wks. Her last Depo was in Mar. She is not interested in continuing Depo or switching to a hormonal alternative and is interested in a BTL. She has had issues with heavy periods throughout her life and is one of the reasons why Depo was started. She attempted OCP as a child but was told she had a reaction so hasn? t tried them since. The pt was informed that she should also have a annual at some point. The pt would like to come back for an annual exam. The pt had a flu vaccine through work. Michael came to her work site in Dec. She has gained a little wt recently b/c she has been less active. Discussed wt loss strategies (diet, exercise). The smokes about a ? ? ? PPD. She knows that she can? t quit cold turkey and is willing to try the patch. 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 ? ? PPD, rare EtOH José Miguel Guo MD Attn: Accounting,[address] [facility], [place], [address], [facility] 06/13/2017 12:13:52 06/25/2017 text/html 26y presents for annual exam. The pt has no issues or concerns. The pt presented a couple wks ago for contraception counseling. She desired a BTL and signed a consent. She is aware that it will be mid June before the procedure can be scheduled. She wanted to switch from Depo b/c she was beginning to have bleeding issues. Her last Depo was within the last 3 months. She was prescribed the nicotine patch at the last visit but states that she never started it. She states that she has heard bad things about the patch. Informed the pt that the patch was better than the alternative of continuing to smoke. The pt is not interested in any STI testing, but is willing to get the ct/gc since it is obtained with the pap. José Miguel Guo MD Attn: Accounting,[address] [facility], [place], [address], [facility] 06/25/2017 18:57:55 07/31/2017 text/html 27y s/p L/S BTL on 07/17/17 presents for PO visit. The pt has no issues or concerns. She has not had a period since the surgery. The pt states that she was due for Depo around now, so her period may be a little delayed. She called around 07/20 and was concerned that she had not had a BM since surgery. Her BMs have returned to nml. Explained that when some people got long-term contraception they did not follow up regular for screening. Stress the importance of continuing to get annual exams. José Miguel Guo MD Attn: Accounting,[address] [facility], [place], [address], [facility] 07/31/2017 14:07:16 OBGyn Episode No OBEpisode recorded.
--- OUTSIDE RECORDS SUMMARY | 2024-04-09 23:32 | XMS_ITS | Encounter Summary ---
Author Organization [facility] Address [address] [place] [address] Care Team Providers Care Electronics Manufacturer Name Role Phone Unavailable Primary Care Provider Unavailabl e Encounter Details Date Type Department Care Team (Late st Contact Info) Description 02/21/2020 Lab Requisition [facility] Mobile Testing [address] [place] [address] [place] [address] [place] [address] Social History Tobacco Use Types Packs/Day Years Used Date Smoking Tobacco: Never Assessed Comments Unknown Sex and Gender Information Value Date Recorded Sex Assigned at Not on file Legal Sex Female 2:03 PM PRICE CHECKER Gender Identity Not on file Sexual Orientation Not on file documented as of this encounter Plan of Treatment Not on file documented as of this encounter Procedures Procedure Name Priority Date/Time Associated Diagnosis Comments SARS-COV-2 PCR [facility] ONLY Routine 02/21/2020 2:17 PM PRICE CHECKER documented in this encounter Visit Diagnoses Not on filedocumented in this encounter
--- OUTSIDE RECORDS SUMMARY | 2024-04-09 23:32 | XMS_ITS | Clinical Summary ---
Author Organization 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 Gender Identity Not on file Sexual Orientation Not on file Plan of Treatment Health Maintenance Due Date Last Done Comments Hepatitis C Virus (HCV) Screening 1990 TdaP Immunization 1990 Pap Smear 07/23/2011 Cervical Cancer Screening (CCS) 2020 HPV/Cotest 2020 Influenza Immunization (#1) 11/29/202311/29, 01/23/2018, 01/13/2017 SARS-COV-2 Immunization ( season) 2023 09/07/2020, 08/17/2020 Respiratory Syncytial Virus (RSV) Immunization (Adult) (1 - 1-dose 75+ series) 2065 DTaP/Tdap/Td Immunization Discontinued 1995, 08/17/1995, 02/23/1991, Additional history exists Hepatitis B Immunization Completed 996, 10/19/1995, 08/17/1995 Meningococcal Immunization (ACWY) Aged Out No longer eligible based on patient's age to complete this topic Pneumococcal Immunization Combined Aged Out No longer eligible based on patient's age to complete this topic Rotavirus Immunization Aged Out No lo nger eligible based on patient's age to complete this topic Insurance [facility] [employer] on file
--- OUTSIDE RECORDS SUMMARY | 2024-04-09 23:32 | XMS_ITS | Encounter Summary ---
Author Organization [facility] Address [address] [place] [address] Care Team Providers Care Software Asset Management Analyst Name Role Phone Unavailable Primary Care Provider Unavailabl e Encounter Details Date Type Department Care Team (Late st Contact Info) Description 02/21/2020 3:00 PM PRECISION LENS TECHNICIAN Rapid Evaluation [place] [facility] Mobile Testing [address] [place] [address] Social History Tobacco Use Types Packs/Day Years Used Date Smoking Tobacco: Never Assessed Comments Unknown Sex and Gender Information Value Date Recorded Sex Assigned at Not on file Legal Sex Female 2:03 PM PRECISION LENS TECHNICIAN Gender Identity Not on file Sexual Orientation Not on file documented as of this encounter Plan of Treatment Not on file documented as of this encounter Visit Diagnoses Not on filedocumented in this encounter
--- OUTSIDE RECORDS SUMMARY | 2024-04-09 23:33 | XMS_ITS | Encounter Summary ---
Author Organization [facility] Healthcare Address [address] [place] [address] Care Team Providers Care Touch Up Painter Hand Name Role Phone Unavailable Primary Care Provider Unavailabl e Encounter Details Date Type Department Care Team (Late st Contact Info) Description 09/03/2009 12:10 AM CDT - 09/03/2009 12:32 AM CDT Hospital Encounter [facility] Sibley MD [address] [place] [id number] Guillermo Lujan MD [address] [place] [address] Hemorrhage of rectum and anus Social History Tobacco Use Types Packs/Day Years Used Date Smoking Tobacco: Never Assessed Comments Unknown Sex and Gender Information Value Date Recorded Sex Assigned at Not on file Legal Sex Female 1:18 AM QA REVIEWER Gender Identity Not on file Sexual Orientation Not on file documented as of this encounter Plan of Treatment Not on file documented as of this encounter Visit Diagnoses Diagnosis Hemorrhage of rectum and anus documented in this encounter
--- OUTSIDE RECORDS SUMMARY | 2024-04-09 23:33 | XMS_ITS | Encounter Summary ---
Author Organization [facility] Healthcare Address [address] [place] [address] Care Team Providers Care Product Safety Officer Name Role Phone Jay Barrett MD Primary Care Provider [phone] Reason for Visit * Reason Comments IUD Insertion Encounter Details Date Type Department Care Team (Late st Contact Info) Description 07/17/2023 2:45 PM CDT Procedure visit [facility] [address] [place] [address] Erma Galeano, DO [address] [place] [address] Encounter for IUD insertion (Primary Dx) Social History Tobacco Use Types Packs/Day Years Used Date Smoking Tobacco: Every Day Cigarettes 0.5 14 Started: 2010 Personal Safety Answer Date Recorded Getting School Help Needed Not on file Comments No Sex and Gender Information Value Date Recorded Sex Assigned at Not on file Legal Sex Female 1:18 AM 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 Gender Identity Not on file Sexual Orientation Not on file Occupation Industry Job Start Date Job End Date [employer] Not on file Not on file Not o n file documented as of this encounter Last Filed Vital Signs Vital Sign Reading Time Taken Comments Blood Pressure 128/72 07/17/2023 2:48 PM CDT Pulse - - Temperature - - Respiratory Rate - - Oxygen Saturation - - Inhaled Oxygen Concentration - - Weight 81.9 kg (180 lb 9.6 oz) 07/17/2023 2:48 P M CDT Height - - Body Mass Index 27.46 06/11/2023 10:20 AM CDT documented in this encounter Progress Notes * Erma Galeano DO - 07/17/2023 2:45 PM CDT IUD Insertion Procedure Note Indications: abnormal uterine bleeding Procedure Details LMP: currently on cycle. The risks (including infection, bleeding, pain, and uterine perforation) and benefits of the procedure were explained to the patient and Written informed consent was obtained. Cervix cleansed with Betadine. Anterior lip of cervix grasped with single- toothed tenaculum. Uterussounded to 8 cm. IUD inserted without difficulty. String visible and trimmed. Patient tolerated procedure well. IUD Information: Mirena. Condition: Stable Complications: None Plan: The patient was advised to call for any fever or for prolonged or severe pain or bleeding. She was advised to use OTC analgesics as needed for mild to moderate pain. F/u 1 month for IUD check. Erma Galeano DO documented in this encounter Plan of Treatment Not on file documented as of this encounter Visit Diagnoses Diagnosis Encounter for IUD insertion- Primary Insertion of intrauterine contraceptive device documented in this encounter Care Teams Product Safety Officer Relationship Specialty Start Date End Date Jay Barrett MD PCP - General 06/21/18 documented as of this encounter
--- OUTSIDE RECORDS SUMMARY | 2024-04-09 23:33 | XMS_ITS | Encounter Summary ---
Author Organization [facility] Healthcare Address [address] [place] [address] Care Team Providers Care Masonry Supervisor Name Role Phone Jay Barrett MD Primary Care Provider [phone] Encounter Details Date Type Department Care Team (Latest Contact Info) Description 06/11/2023 10:55 AM CDT - 06/11/2023 11:59 PM CDT Hospital Encounter [address] [address] Screening for malignant neoplasm of cervix; Screen for sexually transmitted diseases Discharge Disposition: Discharge to home or self care Social History Tobacco Use Types Packs/Day Years Used Date Smoking Tobacco: Every Day Cigarettes 0.5 14 Started: 2010 Personal Safety Answer Date Recorded Getting School Help Needed Not on file Comments No Sex and Gender Information Value Date Recorded Sex Assigned at Not on file Legal Sex Female 1:18 AM HOLE PUNCHER STRAP Gender Identity Not on file Sexual Orientation Not on file Occupation Industry Job Start Date Job End Date [employer] Not on file Not on file Not o n file documented as of this encounter Medications at Time of Discharge HYDROcodone-aceta minophen (NORCO) 5-325 mg per tabletIndications :Pain Take 1 tablet by mouth every 6 (six) hours as needed for pain 15 tablet 05/26/2022 08/20/2023 ibuprofen (ADVIL,MOTRIN) 800 mg tablet Take 1 tablet (800 mg total) by mouth 3 (three) times a day 21 tablet 05/26/2022 08/20/2023 documented as of this encounter Discharge Disposition Disposition Code Departure Means Destination Discharge to home or self care documented in this encounter Plan of Treatment Not on file documented as of this encounter Procedures Procedure Name Priority Date/Time Associated Diagnosis Comments PAP AND HIGH RISK HPV, REFLEX TO GENOTYPING Routine 06/11/2023 12:05 PM CDT Screening for malignant neoplasm of cervix HIGH RISK HPV DNA DETECTION WITH GENOTYPING Routine 06/11/2023 10:55 AM CDT Screening for malignant neoplasm of cervix N. GONORRHOEAE/C. TRACHOMATIS AMPLIFICATION Routine 06/11/2023 10:55 AM CDT Screen for sexually transmitted diseases TRICHOMONAS VAGINALIS PCR Routine 06/11/2023 10:55 AM CDT Screen for sexually transmitted diseases documented in this encounter Results * Pap and High Risk HPV and Genotyping (Cytology Component) (06/11/2023 12:05 PM CDT) Thin prep (Pap test) 06/11/2023 12:05 PM CDT 06/11/2023 12:05 PM CDT Narrative PATHOLOGY CH - 06/16/2023 3:39 PM CDT [facility] Department of Pathology [address] [place], [place] [id number] Final Report with Addendum Note to Patients: This report may contain a detailed description of human tissue sent by a health care provider to the laboratory for pathologic evaluation. The content of this report is essential for diagnosis and may provide important critical findings. This information may be unfamiliar to patients to review without a medical professional present. It is advised that the patient review this report in the presence of a health care provider who can answer questions and explain the details. Patient Name: ??MALIKA FLORENTINO Yanci Address: ??[address] [place] [address], ?? [place], [place] [address] Gender: ??F : ??1990 (Age: 32) Service: ?? Location: ?? Hospital #: ??[id number] Patient Type: ?? SPECIMEN Taken: ??06/11/2023 Received: ??06/11/2023 Accessioned:: ??06/12/2023 Reported: ??06/16/2023 Physician(s): Patricia Phan D.O. Diagnosis: SOURCE OF SPECIMEN ? SCREENING THIN PREP IMAGED PAP w/ HPV: STATEMENT OF ADEQUACY ?- Satisfactory for evaluation; endocervical/transformation zone component present ? GENERAL CATEGORIZATION: ?- Negative for intraepithelial lesion or malignancy ? MARTHA Mack(ASCP)MARTHA Cui(ASCP) Report Electronically Reviewed and Signed Out By ??MARTHA Cui(ASCP) ??06/16/2023 15:39:21Addenda: HPV Test Interpretation HPV HR 16- ??Not detected HPV HR 18- ??Not detected HPV HR non 16/18- ??Detected ? Interpretive Data Nucleic acid amplification for detection of high-risk Human Papilloma virus (HPV) is performed by the Chanel Lazaro 6800 HPV test. ??This assay specifically detects HPV-16 and HPV-18 genotypes. ??The following HPV genotypes are detected as high-risk HPV: HPV-31, 33, 35, 39, 45, 51, 52, 56, 58, 59, 66, and 68. ??This assay has been approved by the [place] Food and Drug Administration for detection of HPV in cervical specimens collected by a physician using an endocervical brush/spatula or cervical broom and placed in the ThinPrep Pap Test PreservCyt collection containers. ??The performance characteristics of this test have been verified by the [facility] Infectious Disease laboratory. ??Correlate with reported cytology results, as applicable. Interpretive data last revised 22 MARTHA Cui(ASCP)Report Electronically Reviewed and Signed Out By ??MARTHA Cui(ASCP) ??06/15/2023 13:16:42 ?? Specimen(s) Received: A: SCREENING THIN PREP IMAGED PAP w/ HPV Clinical History: Last Menstrual Period: 05/17/23 The Pap test is a screening test used to aid in the detection of cervical cancer and its precursors. ??It should not be the sole means by which malignant and premalignant lesions are diagnosed. ??Both false negative and false positive results may occur. ?? It also has poor sensitivity for the detection of endometrial lesions and should not be used to evaluate suspected endometrial abnormalities. ??For these reasons it is most important to obtain Pap tests at regular intervals. The performance characteristics of some immunohistochemical stains, fluorescence in-situ hybridization tests and immunophenotyping by flow cytometry cited in this report (if any) were determined by the Surgical Pathology Department at [facility] as part of an ongoing quality control tech program and in compliance with federally mandated regulations drawn from the Clinical Laboratory Improvement Act of 1988 (CLIA '88). ??Some of these tests rely on the use of analyte specific reagents and are subject to specific labeling requirements by the US Food and Drug Administration. ??Such diagnostic tests may only be performed in a facility that is certified by the Department of Health and Human Services as a high complexity laboratory under CLIA '88. The FDA has determined that such clearance or approval is not necessary. ??This test is used for clinical purposes. ??It should not be regarded as investigational or for research. ??Nevertheless, federal rules concerning the medical use of analyte specific reagents require that the following disclaimer be attached to the report: This test was developed and its performance characteristics determined by the Surgical Pathology Department [facility]. ??It has not been cleared or approved by the U. S. Food and Drug Administration. Erma Galeano DO LAB CYTOLOGY ORDERABLES Final Result PATHOLOGY [address] [place] [address] * Trichomonas vaginalis PCR Thin prep (06/11/2023 10:55 AM CDT) Trichomonas DNA Not Detected [facility] Comment: Interpretive Data This assay detects Trichomonas vaginalis by nucleic acid amplification testing (NAAT). This assay has been cleared by the [place] Food and Drug administration. The performance characteristics of this test have been verified by the [facility] Infectious Disease laboratory. The performance of this test has not been evaluated in individuals less than 18 years of age. ?? Current Interpretive Data was last revised on 2023. Testing performed by: [facility], [address] [place]., [address] Thin prep 06/11/2023 10:5 5 AM CDT 06/12/2023 12:07 PM CDT Erma Galeano DO LAB MICROBIOLOGY - GENE RAL ORDERABLES Final Result Performing Organization Address City/[facility] Co de Phone Number ARNALDOHANH [address] [address] Department [employer] [place] [address] BJ * N. gonorrhoeae/C. trachomatis Amplification Thin prep (06/11/2023 10:55 AM CDT) C. trachomatis Not Detected [facility] Comment:Testing performed by : [facility], [address] [place] [address]., [address] N. gonorrhoeae Not Detected [facility] Comment: Interpretive Data This assay detects Chlamydia trachomatis and Neisseria gonorrhoeae by nucleic acid amplification testing (NAAT). This assay has been cleared by the [place] Food and Drug administration. The performance characteristics of this test have been verified by the [facility] Infect[facility] Disease laboratory. The performance characteristics of this test have not been evaluated in individuals less than 14 years of age. Current Interpretive Data was last revised on 2023. Testing performed by: [facility], [address] [place]., [address] Thin prep 06/11/2023 10:5 5 AM CDT 06/12/2023 12:07 PM CDT Erma Galeano DO LAB MICROBIOLOGY - GENE RAL ORDERABLES Final Result [facility] [address] [address] Department of [employer] [place] [address] BJ * (ABNORMAL) High Risk HPV DNA Detection with Genotyping (Molecular component) (06/11/2023 10:55 AM CDT) HPV HR 16 Not Detected Not Detected [facility] Comment:Testing performed by : [facility], [address] [place]., [address] HPV HR 18 Not Detected Not Detected [facility] Comment:Testing performed by : [facility], [address] [place]., [address] HPV HR Non 16/18 Detected(A) Not Detected [...] this test have been verified by the [facility] Infectious Disease laboratory. Correlate with separately reported cytology results, as applicable. Interpretive data last revised 22 Testing performed by: [facility], [address] [place]., [address] Endocervical 06/11/2023 10:5 5 AM CDT 06/12/2023 12:07 PM CDT Narrative [facility] - 06/13/2023 1:42 AM CDT Clinical history and diagnosis->Liquid-based PAP test with high risk HPV test- Z12.4 Number of vials->1 Testing type->Screening Last menstrual period (date if known)->05/17/23 us Emra Galeano DO LAB BODY FLUIDS AND STO OLS ORDERABLES Final Result [facility] [address] [place] [address] [facility] documented in this encounter Visit Diagnoses Diagnosis Screening for malignant neoplasm of cervix Screening for malignant neoplasm of the cervix Screen for sexually transmitted diseases Screening examination for venereal disease documented in this encounter Care Teams Masonry Supervisor Relationship Specialty Start Date End Date Jay Barrett MD PCP - General 06/21/18 documented as of this encounter
--- OUTSIDE RECORDS SUMMARY | 2024-04-09 23:33 | XMS_ITS | Encounter Summary ---
Author Organization [facility] Healthcare Address [address] [place] [address] Care Team Providers Care Enamel Sprayer Name Role Phone Jay Barrett MD Primary Care Provider [phone] Reason for Referral * Diagnostic Imaging (Routine) - Pending Review Specialty Diagnoses / Procedures Referred By Contac t Referred To Contact Diagnoses Menorrhagia with irregular cycle Procedures US Transvaginal Erma Galeano DO [address] [place] [address] Phone: tel: fax: [facility] Referral ID Status Reason Start Date Expiration Date V isits Requested Visits Authorized [id number] Pending Review 06/11/2023 07/10/2024 1 1 * Diagnostic Imaging (Routine) - Pending Review Specialty Diagnoses / Procedures Referred By Contac t Referred To Contact Diagnoses Menorrhagia with irregular cycle Procedures US Pelvis Complete Erma Galeano DO [address] [place] [address] Phone: tel: fax: [facility] Referral ID Status Reason Start Date Expiration Date V isits Requested Visits Authorized [id number] Pending Review 06/11/2023 07/10/2024 1 1 Encounter Details Date Type Department Care Team (Late st Contact Info) Description 06/11/2023 Orders Only [facility] [address] [place] [address] Erma Galeano DO [address] [place] [address] Menorrhagia with irregular cycle (Primary Dx) Social History Tobacco Use Types Packs/Day Years Used Date Smoking Tobacco: Every Day Cigarettes 0.5 14 Started: 2010 Personal Safety Answer Date Recorded Getting School Help Needed Not on file Comments No Sex and Gender Information Value Date Recorded Sex Assigned at Not on file 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 Gender Identity Not on file Sexual Orientation Not on file Occupation Industry Job Start Date Job End Date [employer] Not on file Not on file Not o n file documented as of this encounter Plan of Treatment Scheduled Orders Name Type Priority Associated Diagnoses Orde r Schedule US Pelvis Complete Imaging Schedule Rout ine, Read Routine (OP Routine) Menorrhagia with irregular cycle Expected: 06/11/2023, Expires: 06/10/2024 US Transvaginal Imaging Schedule Routine , Read Routine (OP Routine) Menorrhagia with irregular cycle Expected: 06/11/2023, Expires: 06/10/2024 documented as of this encounter Visit Diagnoses Diagnosis Menorrhagia with irregular cycle- Primary documented in this encounter Care Teams Enamel Sprayer Relationship Specialty Start Date End Date Jay Barrett MD PCP - General 06/21/18 documented as of this encounter
--- OUTSIDE RECORDS SUMMARY | 2024-04-09 23:33 | XMS_ITS | Encounter Summary ---
Author Organization [facility] Healthcare Address [address] [place] [address] Care Team Providers Care Referral Specialist Name Role Phone Jay Barrett MD Primary Care Provider [phone] Encounter Details Date Type Department Care Team ([facility] st Contact Info) Description 08/14/2023 Telephone [facility] [address] [place] [address] Erma Galeano DO [address] [place] [address] Social History Tobacco Use Types Packs/Day Years Used Date Smoking Tobacco: Every Day Cigarettes 0.5 14 Started: 2010 Personal Safety Answer Date Recorded Getting School Help Needed Not on file Comments No Sex and Gender Information Value Date Recorded Sex Assigned at Not on file 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 Gender Identity Not on file Sexual Orientation Not on file Occupation Industry Job Start Date Job End Date [place] Not on file Not on file Not o n file documented as of this encounter Miscellaneous Notes * Telephone Encounter - Francisca Chow MA - 08/14/2023 3:42 PM CDT 1st Missed appointment letter sent documented in this encounter Plan of Treatment Not on file documented as of this encounter Visit Diagnoses Not on filedocumented in this encounter Care Teams Referral Specialist Relationship Specialty Start Date End Date Jay Barrett MD PCP - General 06/21/18 documented as of this encounter
--- OUTSIDE RECORDS SUMMARY | 2024-04-09 23:33 | XMS_ITS | Encounter Summary ---
Author Organization [facility] Healthcare Address [address] [place] [address] Care Team Providers Care Bolt Sorter Name Role Phone Jay Barrett MD Primary Care Provider [phone] Encounter Details Date Type Department Care Team (Latest Contact Info) Description 06/21/2018 6:28 AM CDT - 06/21/2018 9:15 AM CDT Hospital Encounter [facility] Will Oneal MD [facility] [address] [place] [address] Discharge Disposition: Discharge to home or self care Social History Tobacco Use Types Packs/Day Years Used Date Smoking Tobacco: Never Assessed Comments Unknown Sex and Gender Information Value Date Recorded Sex Assigned at Not on file Legal Sex Female 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 Gender Identity Not on file Sexual Orientation Not on file documented as of this encounter Last Filed Vital Signs Vital Sign Reading Time Taken Comments Blood Pressure 105/68 06/21/2018 7:34 AM CDT Pulse 72 06/21/2018 7:34 AM CDT Temperature 37.1 ??C (98.8 ??F) 06/21/2018 7:34 AM CD T Respiratory Rate - - Oxygen Saturation 100% 06/21/2018 7:34 AM CDT Inhaled Oxygen Concentration - - Weight 83.9 kg (185 lb) 06/21/2018 7:34 AM CDT Height 170.2 cm (5' 7 ) 06/21/2018 7:34 AM CDT Body Mass Index 28.98 06/21/2018 7:34 AM CDT documented in this encounter Discharge Disposition Disposition Code Departure Means Destination Discharge to home or self care documented in this encounter Plan of Treatment Not on file documented as of this encounter Procedures Procedure Name Priority Date/Time Associated Diagnosis Comments SCAN - PATHOLOGY 06/22/2018 12:0 0 AM CDT PROCEDURE - RESULT 06/21/2018 12 :00 AM CDT documented in this encounter Results * SCAN - PATHOLOGY (06/22/2018 12:00 AM CDT) Narrative 06/22/2018 12:00 AM CDT Ordered by an unspecified provider. Historical Provider Final Res ult * PROCEDURE - RESULT (06/21/2018 12:00 AM CDT) Narrative 06/21/2018 12:00 AM CDT Ordered by an unspecified provider. Historical Provider Final Res ult documented in this encounter Visit Diagnoses Not on filedocumented in this encounter Care Teams Bolt Sorter Relationship Specialty Start Date End Date Jay Barrett MD PCP - General 06/21/18 documented as of this encounter
--- OUTSIDE RECORDS SUMMARY | 2024-04-09 23:33 | XMS_ITS | Encounter Summary ---
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
--- OUTSIDE RECORDS SUMMARY | 2024-04-09 23:33 | XMS_ITS | Encounter Summary ---
Author Organization [facility] Address [address] [place] [address] Care Team Providers Care Acetylene Cutter Name Role Phone Jay Barrett MD Primary Care Provider [phone] Reason for Visit * Reason Comments OTHER Facial Swelling Encounter Details Date Type Department Care Team (Late st Contact Info) Description 05/26/2022 8:04 AM CONSTRUCTION GRIP - 05/26/2022 3:20 PM CONSTRUCTION GRIP Emergency [address] [address] Dental abscess (Primary Dx) Discharge Disposition: Discharge to home or self care Social History Tobacco Use Types Packs/Day Years Used Date Smoking Tobacco: Never Assessed Comments Unknown Sex and Gender Information Value Date Recorded Sex Assigned at Not on file Legal Sex Female 1:18 AM CONSTRUCTION GRIP Gender Identity Not on file Sexual Orientation Not on file documented as of this encounter Last Filed Vital Signs Vital Sign Reading Time Taken Comments Blood Pressure 126/88 05/26/2022 8:05 AM CONSTRUCTION GRIP Pulse 97 05/26/2022 8:05 AM CONSTRUCTION GRIP Temperature 36.9 ??C (98.4 ??F) 05/26/2022 8:05 AM CS T Respiratory Rate 20 05/26/2022 8:05 AM CONSTRUCTION GRIP Oxygen Saturation 100% 05/26/2022 8:05 AM CONSTRUCTION GRIP Inhaled Oxygen Concentration - - Weight 79.4 kg (175 lb) 05/26/2022 8:05 AM CONSTRUCTION GRIP Height 172.7 cm (5' 8 ) 05/26/2022 8:05 AM CONSTRUCTION GRIP Body Mass Index 26.61 05/26/2022 8:05 AM CONSTRUCTION GRIP documented in this encounter Discharge Instructions * Discharge Instructions* Nai Huerta PA - 05/26/2022 11:21 AM CONSTRUCTION GRIP Take medication as prescribed. Do not take pain medication and drink alcohol or operate heavy machinery. You should take an [id number] stool softener while taking pain medication. Follow up with a dentist in 3 days. Return to the ER for any new or worsening symptoms. Follow-up as recommended is mandatory. You have received emergency care only at your visit today. This is not a substitute for ongoing care, further evaluation and treatment and therefore follow-up as directed is not optional but mandatory You MUST follow up for further evaluation of all incidental abnormal radiographic and laboratory findings, Have your physician obtain records from this visit and address all the incidental abnormal findings. This may include final results of lab testing, cultures, final x-ray reports which may not have been available during the time of the visit. Return immediately for any new symptoms, worsening of symptoms, or persistent symptoms TRUCTION GRIP * Attachments The following attachments cannot be sent through Care Everywhere. * Dental Abscess (AfterCare(R) Instructions(ER/ED)) (Albanian) documented in this encounter Medications at Time of Discharge clindamycin (CLEOCIN) 300 mg capsule Take 1 capsule (300 mg total) by mouth 4 (four) times a day for 7 days 28 capsule 05/26/2022 06/02/2022 HYDROcodone-aceta minophen (NORCO) 5-325 mg per tabletIndications :Pain Take 1 tablet by mouth every 6 (six) hours as needed for pain 15 tablet 05/26/2022 08/20/2023 ibuprofen (ADVIL,MOTRIN) 800 mg tablet Take 1 tablet (800 mg total) by mouth 3 (three) times a day 21 tablet 05/26/2022 08/20/2023 documented as of this encounter Ordered Prescriptions Prescription Sig Dispense Quantity Refills Last Filled Start Date End Date ibuprofen (ADVIL,MOTRIN) 800 mg tablet Take 1 tablet (800 mg total) by mouth 3 (three) times a day 21 tablet 05/26/2022 HYDROcodone-acetam inophen (NORCO) 5-325 mg per tabletIndications: Pain Take 1 tablet by mouth every 6 (six) hours as needed for pain 15 tablet 05/26/2022 4 clindamycin (CLEOCIN) 300 mg capsule Take 1 capsule (300 mg total) by mouth 4 (four) times a day for 7 days 28 capsule 05/26/2022 3 documented in this encounter Discharge Disposition Disposition Code Departure Means Destination Discharge to home or self care documented in this encounter ED Notes * Nai Huerta PA - 05/26/2022 9:25 AM CST CHIEF COMPLAINT: Chief Complaint Patient presents with OTHER Facial Swelling HPI 11:21 AM Malika Wagner is a 31 y.o. female presenting to the ED c/o left sided facial swelling.Patient states she woke this morning with significant swelling of th left side of her face. Patientstates she does have bad teeth but denies significant dental pain. She denies sob, difficulty swallowing, fever, or, chills. History provided by patient PCP: Jay Barrett MD PAST MEDICAL HISTORY No past medical history on file. PAST SURGICAL HISTORY No past surgical history on file. FAMILY HISTORY No family history on file. MEDICATIONS GIVEN IN THE ED Medications sodium chloride 0.9% bolus 1,000 mL (has no administration in time range) ketorolac (TORADOL) 30 mg/mL (1 mL) injection 30 mg (30 mg intravenous Given 05/26/22 2240) dexAMETHasone (DECADRON) preservative free solution 10 mg (10 mg intravenous Given 05/26/22 4169) clindamycin (CLEOCIN) 600 mg/50 mL in dextrose 5% (premix) 600 mg (0 mg intravenous Stopped 914) ioversoL (OPTIRAY 350) syringe 125 mL (100 mL intravenous Contrast Given 05/26/22 7586) CURRENT HOME MEDICATIONS Current Facility-Administered Medications: sodium chloride 0.9% bolus 1,000 mL, 1,000 mL, intravenous, Once, Nai Huerta PA Current Outpatient Medications: clindamycin (CLEOCIN) 300 mg capsule, Take 1 capsule (300 mg total) by mouth 4 (four) times a day for 7 days, Disp: 28 capsule, Rfl: 0 HYDROcodone-acetaminophen (NORCO) 5-325 mg per tablet, Take 1 tablet by mouth every 6 (six) hours as needed for pain, Disp: 15 tablet, Rfl: 0 ibuprofen (ADVIL,MOTRIN) 800 mg tablet, Take 1 tablet (800 mg total) by mouth 3 (three) times a day, Disp: 21 tablet, Rfl: 0 ALLERGIES No Known Allergies SOCIAL HISTORY Social History Tobacco Use Smoking status: Not on file Smokeless tobacco: Not on file Substance and Sexual Activity Drug use: Not on file Sexual activity: Not on file Alcohol Use: Not on file PHYSICAL EXAM TRIAGE VITAL SIGNS: ED Triage Vitals [05/26/22 0805] Temp Pulse Resp BP SpO2 36.9 ??C (98.4 ??F) 97 20 126/88 100 % Temp src Heart Rate Source Patient Position BP Location FiO2 (%) Oral Pulse Oximetry Sitting Right arm -- Height Height Method Weight Weight Method 1.727 m (5' 8 ) Stated 79.4 kg (175 lb) Stated Physical Exam Vitals and nursing note reviewed. Constitutional: General: She is not in acute distress. Appearance: She is well-developed. HENT: Head: Normocephalic and atraumatic. Right Ear: External ear normal. Left Ear: External ear normal. Nose: Nose normal. Mouth/Throat: Mouth: Mucous membranes are moist. Dentition: Dental tenderness and dental abscesses present. No dental caries. Pharynx: Oropharynx is clear. Uvula midline. Comments: Left sided facial swelling extending under chin and onto the neck. Patient able to open her mouth without difficulty Eyes: Conjunctiva/sclera: Conjunctivae normal. Cardiovascular: Rate and Rhythm: Normal rate and regular rhythm. Pulmonary: Effort: Pulmonary effort is normal. No respiratory distress. Breath sounds: Normal breath sounds. Musculoskeletal: General: Normal range of motion. Cervical back: Neck supple. Skin: General: Skin is warm and dry. Neurological: General: No focal deficit present. Mental Status: She is alert. Psychiatric: Mood and Affect: Mood normal. Behavior: Behavior normal. LABS Labs Reviewed CBC WITH AUTO DIFFERENTIAL - Abnormal Result Value WBC 15.1 (*) Hgb 14.3 Hct 42.3 Plt 259 MPV 9.2 RBC 4.91 MCV 86.2 MCH 29.1 MCHC 33.8 RDW CV 16.1 (*) RDW SD 50.4 (*) NRBC abs 0.00 COMPREHENSIVE METABOLIC PANEL - Abnormal Sodium 138 Potassium, pl 3.6 Chloride 101 CO2 26 Anion gap 11 BUN 6 (*) Creatinine 0.70 Glucose 118 Calcium 9.1 Bilirubin, total 0.6 Protein, pl 7.0 Albumin 4.2 Alk phos 62 ALT 6 (*) AST 16 DIFFERENTIAL AUTO - Abnormal Neutrophil abs 11.9 (*) Imm gran abs 0.1 Lymphocyte abs 2.0 Monocyte abs 1.1 (*) Eosinophil abs 0.0 Basophil abs 0.0 Neutrophil pct 78.5 Imm gran pct 0.4 Lymphocyte pct 13.3 Monocyte pct 7.3 Eosinophil pct 0.2 Basophil pct 0.3 POCT HCG, URINE - Normal HCG, ur, POC Negative Lot Number [id number] QC Backgroud Clear Acceptable QC Control Line Acceptable EGFR eGFR 119 SEPSIS LACTATE WITH REFLEX Sepsis Lactate 0.7 ED COURSE/MEDICAL DECISION MAKING Differential diagnosis included but not limited to dental abscess, Allen's angina, dental caries, abscess Patient appears nontoxic and her vital signs are stable. She is feeling slightly better after medication in the ER. CT does show small suspected odontogenic abscess along the left lateral aspect of the mandible adjacent to the 2nd molar with extensive associated soft tissue inflammatory changes. Patient is able to tolerate p.o. intake and can open her mouth without difficulty. Will discharge patient with a prescription of antibiotics and pain medications with a dental list. I discussed all diagnostic test results, indications for return to the ER, the importance of follow-up. All questions answered. Patient's medical records were reviewed. ED Course as of 05/26/22 1121 Time: 05/26 1039 Value: CT Neck Soft Tissue W Contrast Comment: IMPRESSION: 1. Small suspected odontogenic abscess along the left lateral aspect of the mandible adjacent to the 2nd molar, with extensive associated soft tissue inflammatory changes. 2. 2 cm hypoattenuating nodule in the inferior right thyroid lobe. Further evaluation with thyroid ultrasound is recommended. By: Nai Huerta PA FINAL IMPRESSION Dental abscess DISPOSITION: Home All findings were discussed with patient. Pt agreeable with plan. Non toxic appearing, vitals stable. Patient stable for discharge home. Given return to ER precautions Close outpatient follow-up with a low threshold to return has been mandated , concerning symptoms have been emphasized in detail, and this patient expresses understanding PATIENT INSTRUCTED TO FOLLOW UP Jay Barrett MD [address] [id number] In 1 week for re-evaluation and further treatment José Miguel Isidro, [place] [address] [facility] [id number] In 3 days for re-evaluation and further treatment DISCHARGE MEDICATIONS Your medication list START taking these medications Instructions Last Dose Given Next Dose Due clindamycin 300 mg capsule Commonly known as: CLEOCIN Take 1 capsule (300 mg total) by mouth 4 (four) times a day for 7 days HYDROcodone-acetaminophen 5-325 mg per tablet Commonly known as: NORCO Take 1 tablet by mouth every 6 (six) hours as needed for pain ibuprofen 800 mg tablet Commonly known as: ADVIL,MOTRIN Take 1 tablet (800 mg total) by mouth 3 (three) times a day Where to Get Your Medications You can get these medications from any pharmacy Bring a paper prescription for each of these medications clindamycin 300 mg capsule HYDROcodone-acetaminophen 5-325 mg per tablet ibuprofen 800 mg tablet This examination was transcribed using the [employer] voice recognition system without human mold maintenance technician. In an effort to expedite patient care, this report has not been adjusted for typographical, grammatical, and syntax by a trained medical insurance coding specialist. Nai Huerta PA 05/26/22 0212 Cosigned by Kervin Shankar DO at 05/27/2022 1:09 PM CONSTRUCTION GRIP TRUCTION GRIP TRUCTION GRIP * Abhishek Sierra RN - 05/26/2022 8:15 AM CST Patient woke up this morning with left side of face swollen. Denies difficulty breathing. TRUCTION GRIP TRUCTION GRIP documented in this encounter Plan of Treatment Not on file documented as of this encounter Procedures Procedure Name Priority Date/Time Associated Diagnosis Comments CT SOFT TISSUE NECK W CONTRAST ED 05/26/2022 9:42 AM CONSTRUCTION GRIP SEPSIS LACTATE WITH REFLEX STAT 05/26/2022 9:21 AM CONSTRUCTION GRIP POCT HCG, URINE Routine 05/26/2022 8:45 AM CONSTRUCTION GRIP EGFR STAT 05/26/2022 8:25 AM CONSTRUCTION GRIP DIFFERENTIAL AUTO STAT 05/26/2022 8:2 5 AM CONSTRUCTION GRIP CBC WITH AUTO DIFFERENTIAL STAT 05/26/2022 8:25 AM CONSTRUCTION GRIP COMPREHENSIVE METABOLIC PANEL STAT 05/26/2022 8:25 AM CONSTRUCTION GRIP documented in this encounter Results * CT Neck Soft Tissue W Contrast (05/26/2022 9:42 AM CONSTRUCTION GRIP) Anatomical Region Laterality Modality Head and Neck N/A Computed Tomogra phy 05/26/2022 9:57 AM CONSTRUCTION GRIP Narrative 05/26/2022 10:18 AM CONSTRUCTION GRIP EXAM DESCRIPTION: ?? CT SOFT TISSUE NECK W CONTRAST REASON FOR STUDY: ?? Neck abscess, deep tissue, facial and neck swelling ?? Patient woke this am with swelling to left side of face (area marked with CT marker) with pain ? No surgical history to head or neck ? TECHNIQUE: Post IV contrast scanning from skull base through lung apices. ?? Reconstructed MPR images reviewed. All images stored on PACS. Automated exposure control was used as a dose optimization technique for this examination. CONTRAST TYPE/DOSE: ?? 100mL of IOVERSOL 350 MG IODINE/ML INTRAVENOUS SYRINGE ?? injected via ?? intravenous COMPARISON: ?? None FINDINGS: SOFT TISSUE: ?? Extensive subcutaneous inflammatory fat stranding involving the left anterolateral facial and neck soft tissues with adjacent fascial thickening and overlying skin thickening. ??No masses. ?? Soft tissue thickening extends into the left submandibular space. ORAL CAVITY/FLOOR OF MOUTH, PHARYNX, LARYNX, HYPOPHARYNX: ?? Multiple carious teeth are noted. ??Large periapical lucency centered about the left mandibular 2nd molar. ??There is a small suspected adjacent abscess measuring up to 6 mm along the lateral aspect of the mandible (series 2, image 38). LYMPHADENOPATHY: ?? Multilevel left cervical lymphadenopathy measuring up to 1.2 cm in short axis, likely reactive. MAJOR SALIVARY GLANDS: ?? No solid or cystic masses. ??No inflammatory changes. THYROID: ?? Normal size. ??Right thyroid hypoattenuating nodules, the largest measuring 1.4 cm inferiorly VASCULATURE: ?? No apparent critical stenosis or occlusion. INTRACRANIAL/SKULL BASE/INCLUDED ORBITS: ?? Limited intracranial evaluation. No abnormal findings. PARANASAL SINUSES: ?? Well-aerated. CERVICAL SPINE: ?? No significant abnormalities. LUNG APICES: ?? Clear. IMPRESSION: 1. ?? Small suspected odontogenic abscess along the left lateral aspect of the mandible adjacent to the 2nd molar, with extensive associated soft tissue inflammatory changes. 2. ?? 2 cm hypoattenuating nodule in the inferior right thyroid lobe. ??Further evaluation with thyroid ultrasound is recommended. THIS IS AN ELECTRONICALLY VERIFIED FINAL REPORT 05/26/2022 10:18 AM - Electronically signed by ??Massimo NUÑEZ D: ??05/26/2022 10:18 AM T: Report ID: [id number] Reading Location: ??[id number] Procedure Note Massimo Marks MD - 05/26/2022 EXAM DESCRIPTION: CT SOFT TISSUE NECK W CONTRAST REASON FOR STUDY: Neck abscess, deep tissue, facial and neck swelling Patient woke this am with swelling to left side of face (area marked withCT marker) with pain No surgical history to head or neck TECHNIQUE: Post IV contrast scanning from skull base through lung apices. Reconstructed MPR images reviewed. All images stored on PACS. Automated exposure control was used as a dose optimization technique for this examination. CONTRAST TYPE/DOSE: 100mL of IOVERSOL 350 MG IODINE/ML INTRAVENOUSSYRINGE injected via intravenous COMPARISON: None FINDINGS: SOFT TISSUE: Extensive subcutaneous inflammatory fat stranding involving the left anterolateral facial and neck soft tissues withadjacent fascial thickening and overlying skin thickening. No masses. Softtissue thickening extends into the left submandibular space. ORAL CAVITY/FLOOR OF MOUTH, PHARYNX, LARYNX, HYPOPHARYNX: Multiplecarious teeth are noted. Large periapical lucency centered about the leftmandibular 2nd molar. There is a small suspected adjacent abscess measuring up to 6mm along the lateral aspect of the mandible (series 2, image 38). LYMPHADENOPATHY: Multilevel left cervical lymphadenopathy measuring upto 1.2 cm in short axis, likely reactive. MAJOR SALIVARY GLANDS: No solid or cystic masses. No inflammatorychanges. THYROID: Normal size. Right thyroid hypoattenuating nodules, thelargest measuring 1.4 cm inferiorly VASCULATURE: No apparent critical stenosis or occlusion. INTRACRANIAL/SKULL BASE/INCLUDED ORBITS: Limited intracranialevaluation. No abnormal findings. PARANASAL SINUSES: Well-aerated. CERVICAL SPINE: No significant abnormalities. LUNG APICES: Clear. IMPRESSION: 1. Small suspected odontogenic abscess along the left lateral aspect ofthe mandible adjacent to the 2nd molar, with extensive associated soft tissue inflammatory changes. 2. 2 cm hypoattenuating nodule in the inferior right thyroid lobe.Further evaluation with thyroid ultrasound is recommended. THIS IS AN ELECTRONICALLY VERIFIED FINAL REPORT 05/26/2022 10:18 AM - Electronically signed by Massimo NUÑEZ T: Report ID: [id number] Reading Location: [place] [address] [place] [address] PROCEDURES Final R esult * Sepsis Lactate w/ Reflex (05/26/2022 9:21 AM CONSTRUCTION GRIP) Sepsis Lactate 0.7 0.7 - 2.0 mmol/L [facility] Blood 05/26/2022 9:21 AM CONSTRUCTION GRIP 05/26/2022 9:25 AM CONSTRUCTION GRIP Nai FRAZIER LAB BLOOD ORDERABLES Jana l Result [facility] [address] [facility] Department [place] [address] * POCT hCG, urine (05/26/2022 8:45 AM CONSTRUCTION GRIP) HCG, ur, POC Negative Lot Number [id number] QC Backgroud Clear Acceptable QC Control Line Acceptable Urine 05/26/2022 8:45 AM CONSTRUCTION GRIP Nai FRAZIER POINT OF CARE TEST ORDERA BLES Final Result * eGFR (05/26/2022 8:25 AM CONSTRUCTION GRIP) eGFR 119 mL/min/1. 73 m2 [facility] Comment: Interpretive Data Reference Interval Normal ?>/= 90 mL/min/1.73m2 Mildly decreased* ? 60 - 89 mL/min/1.73m2 Mildly to moderately decreased ?45 - 59 mL/min/1.73m2 Moderately to severely decreased ??30 - 44 mL/min/1.73m2 Severely decreased ?15 - 29 mL/min/1.73m2 Kidney Failure ?< 15 ??mL/min/1.73m2 *Relative to young adult level Estimated glomerular filtration rate is determined by the 2020 CKD-EPI equation recommended by the National Kidney Foundation (A Unifying Approach to GFR Estimation: Recommendations of the NKF-ASK Task Force on Reassessing the Inclusion of Race in Diagnosing Kidney Disease, JASN 202). The CKD-EPI equation should not be used for patients with unstable renal function and has not been validated in children and those over 70. Current interpretive data was last reviewed 2021. Blood 05/26/2022 8:25 AM CONSTRUCTION GRIP 05/26/2022 8:28 AM CONSTRUCTION GRIP us Nai FRAZIER LAB BLOOD ORDERABLES Jana l Result [facility] [address] [facility] Department [place] [address] * (ABNORMAL) Differential, auto (05/26/2022 8:25 AM CONSTRUCTION GRIP) Neutrophil abs 11.9(H) 1.7 - 6.5 K/cumm [facility] Imm gran abs 0.1 0.0 - 0.1 K/cumm [facility] Lymphocyte abs 2.0 0.8 - 3.3 K/cumm [facility] Monocyte abs 1.1(H) 0.2 - 0.8 K/cumm [facility] Eosinophil abs 0.0 0.0 - 0.5 K/cumm [facility] Basophil abs 0.0 0.0 - 0.1 K/cumm [facility] Neutrophil pct 78.5 % [facility] Comment: Interpretive Data Percent cell count reference ranges are not reported, since discordance with absolute values may lead to misinterpretation of CBC data. Current Interpretive Data was last revised on 2017. Imm gran pct 0.4 % [facility] Comment: Interpretive Data Percent cell count reference ranges are not reported, since discordance with absolute values may lead to misinterpretation of CBC data. Current Interpretive Data was last revised on 2017. Lymphocyte pct 13.3 % [facility] Comment: Interpretive Data Percent cell count reference ranges are not reported, since discordance with absolute values may lead to misinterpretation of CBC data. Current Interpretive Data was last revised on 2017. Monocyte pct 7.3 % [facility] Comment: Interpretive Data Percent cell count reference ranges are not reported, since discordance with absolute values may lead to misinterpretation of CBC data. Current Interpretive Data was last revised on 2017. Eosinophil pct 0.2 % [facility] Comment: Interpretive Data Percent cell count reference ranges are not reported, since discordance with absolute values may lead to misinterpretation of CBC data. Current Interpretive Data was last revised on 2017. Basophil pct 0.3 % [facility] Comment: Interpretive Data Percent cell count reference ranges are not reported, since discordance with absolute values may lead to misinterpretation of CBC data. Current Interpretive Data was last revised on 2017. Blood 05/26/2022 8:25 AM CONSTRUCTION GRIP 05/26/2022 8:28 AM CONSTRUCTION GRIP Nai FRAZIER LAB BLOOD ORDERABLES Jana l Result [facility] [address] [facility] Department [place] [address] * (ABNORMAL) Comprehensive metabolic panel (05/26/2022 8:25 AM CONSTRUCTION GRIP) Sodium 138 135 - 145 mmol/L [facility] Potassium, pl 3.6 3.3 - 4.9 mmol/L [facility] Chloride 101 97 - 110 mmol/L [facility] CO2 26 22 - 32 mmol/L [facility] Anion gap 11 2 - 15 mmol/L [facility] BUN 6(L) 8 - 25 mg/dL [facility] Creatinine 0.70 0.60 - 1.10 mg/dL [facility] Glucose 118 70 - 199 mg/dL [facility] Comment: Interpretive Data Fasting glucose >/= 126 mg/dl is diagnostic for diabetes. ?? Fasting is defined as no caloric intake for at least 8 hours. Fasting glucose between 100 mg/dl to 125 mg/dl is diagnostic of prediabetes. In a patient with classic symptoms of hyperglycemia or hyperglycemic crisis, a random glucose >/= 200 mg/dl is diagnostic for diabetes. In the absence of unequivocal hyperglycemia, results should be confirmed by repeat testing. The classification and Diagnosis of Diabetes Diabetes Care 2022; 46: S19-S40. Current interpretive data was last revised 2022. Calcium 9.1 8.5 - 10.3 mg/dL [facility] Bilirubin, total 0.6 0.1 - 1.2 mg/dL [facility] Protein, pl 7.0 6.5 - 8.5 g/dL [facility] Albumin 4.2 3.5 - 5.0 g/dL [facility] Alk phos 62 40 - 130 Units/L [facility] ALT 6(L) 7 - 45 Units/L [facility] AST 16 10 - 45 Units/L [facility] Blood 05/26/2022 8:25 AM CONSTRUCTION GRIP 05/26/2022 8:28 AM CONSTRUCTION GRIP Nai FRAZIER LAB BLOOD ORDERABLES Jana azul Result [facility] [address] [facility] Department [place] [address] * (ABNORMAL) CBC with auto differential (05/26/2022 8:25 AM CONSTRUCTION GRIP) WBC 15.1(H) 3.8 - 9.9 K/cumm [facility] Hgb 14.3 11.9 - 15.5 g/dL [facility] Hct 42.3 35.6 - 45.5 % [facility] Plt 259 150 - 400 K/cumm [facility] MPV 9.2 9.1 - 12.3 fL [facility] RBC 4.91 3.90 - 5.20 M/cumm [facility] MCV 86.2 81.3 - 96.4 fL [facility] MCH 29.1 27.1 - 33.3 pg [facility] MCHC 33.8 32.3 - 35.7 g/dL [facility] RDW CV 16.1(H) 11.1 - 14.9 % [facility] RDW SD 50.4(H) 35.7 - 48.1 fL [facility] NRBC abs 0.00 0.00 - 0.01 K/cumm [facility] Blood 05/26/2022 8:25 AM CONSTRUCTION GRIP 05/26/2022 8:28 AM CONSTRUCTION GRIP us Nai FRAZIER LAB BLOOD ORDERABLES Jana azul Result [facility] [address] [facility] Department [place] [address] documented in this encounter Visit Diagnoses Diagnosis Dental abscess- Primary Periapical abscess without sinus documented in this encounter Administered Medications Inactive Administered Medications - up to 3 most recent administrations Medication Order MAR Action Action Date Dose Rate Site clindamycin (CLEOCIN) 600 mg/50 mL in dextrose 5% (premix) 600 mg 600 mg, intravenous, at 100 mL/hr, Administer over 30 Minutes, Once, On Thu05/26/22 at 0820, For 1 dose, Indications: Upper Respiratory/HEENT InfectionIndications:Upper Respiratory/HEENT Infection New Bag 05/26/2022 8:44 AM CONSTRUCTION GRIP 600 mg 100 mL/hr dexAMETHasone (DECADRON) preservative free solution 10 mg 10 mg, intravenous, Administer over 2 Minutes, Once, On Thu05/26/22 at 0820, For 1 dose Given 05/26/2022 8:41 AM CONSTRUCTION GRIP 10 mg ioversoL (OPTIRAY 350) syringe 125 mL 125 mL, intravenous, Once in imaging, contrast, Starting on Thu05/26/22 at 0942, For 1 dose Contrast Given 05/26/2022 9:43 AM CONSTRUCTION GRIP 100 mL ketorolac (TORADOL) 30 mg/mL (1 mL) injection 30 mg 30 mg, intravenous, Once, On Thu05/26/22 at 0820, For 1 dose, For Adult IV push, administer over 15 seconds Given 05/26/2022 8:40 AM CONSTRUCTION GRIP 30 mg documented in this encounter Active and Recently Administered Medications Times are shown in CONSTRUCTION GRIP. Scheduled Medication Order 05/24/2022 05/25/2022 05/26/2022 clindamycin (CLEOCIN) 600 mg/50 mL in dextrose 5% (premix) 600 mg (COMPLETED) 600 mg, intravenous, at 100 mL/hr, Administer over 30 Minutes, Once, On Thu05/26/22 at 0820, For 1 dose, Indications: Upper Respiratory/HEENT Infection 0844 (New Bag - Prov ider: Abhishek Sierra RN)0914 (Stopped - Provider: Abhishek Sierra RN) dexAMETHasone (DECADRON) preservative free solution 10 mg (COMPLETED) 10 mg, intravenous, Administer over 2 Minutes, Once, On Thu05/26/22 at 0820, For 1 dose 0841 (Given - Provid er: Abhishek Sierra RN) ketorolac (TORADOL) 30 mg/mL (1 mL) injection 30 mg (COMPLETED) 30 mg, intravenous, Once, On Thu05/26/22 at 0820, For 1 dose, For Adult IV push, administer over 15 seconds 0840 (Given - Provid er: Abhishek Sierra RN) PRN Medication Order 05/24/2022 05/25/2022 05/26/2022 ioversoL (OPTIRAY 350) syringe 125 mL (COMPLETED) 125 mL, intravenous, Once in imaging, contrast, Starting on Thu05/26/22 at 0942, For 1 dose 0943 (Contrast Given - Provider: Tati Ford, RT) documented in this encounter Orders Medications Ordered That Lucian ht Not Have Been Administered Count Last Ordered Date First Ordered Date sodium chloride 0.9% bolus 1,000 mL 1 05/26 IV Count Last Ordered Date First Orde red Date SALINE LOCK IV 1 05/26/2022 documented in this encounter Care Teams Acetylene Cutter Relationship Specialty Start Date End Date Jay Barrett MD PCP - General 06/21/18 documented as of this encounter
--- OUTSIDE RECORDS SUMMARY | 2024-04-09 23:33 | XMS_ITS | Encounter Summary ---
Author Organization [facility] Healthcare Address [address] [place] [address] Care Team Providers Care Rubber Compounder Formulator Name Role Phone Jay Barrett MD Primary Care Provider [phone] Encounter Details Date Type Department Care Team (Late st Contact Info) Description 08/14/2020 3:03 PM CDT - 08/14/2020 10:02 PM CDT Emergency [address] [address] Unknown, NotinfDwayne Leger[address] [address] Discharge Disposition: Discharge to home or self care Social History Tobacco Use Types Packs/Day Years Used Date Smoking Tobacco: Never Assessed Comments Unknown Sex and Gender Information Value Date Recorded Sex Assigned at Not on file 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 Gender Identity Not on file Sexual Orientation Not on file documented as of this encounter Last Filed Vital Signs Vital Sign Reading Time Taken Comments Blood Pressure 114/68 08/14/2020 3:04 PM CDT Pulse 64 08/14/2020 3:04 PM CDT Temperature 37.1 ??C (98.8 ??F) 08/14/2020 3:04 PM CD T Respiratory Rate - - Oxygen Saturation 100% 08/14/2020 3:04 PM CDT Inhaled Oxygen Concentration - - Weight 79.9 kg (176 lb 2.4 oz) 08/14/2020 3:04 P M CDT Height 172.7 cm (5' 8 ) 08/14/2020 3:04 PM CDT Body Mass Index 26.78 08/14/2020 3:04 PM CDT documented in this encounter Discharge Disposition Disposition Code Departure Means Destination Discharge to home or self care documented in this encounter Plan of Treatment Not on file documented as of this encounter Procedures Procedure Name Priority Date/Time Associated Diagnosis Comments SCAN - LABS 08/15/2020 12:[address] ABDOMEN PELVIS WO CONTRAST 08/14/2020 12:00 AM CDT documented in this encounter Results * SCAN - LABS (08/15/2020 12:00 AM CDT) Narrative 08/15/2020 12:00 AM CDT Ordered by an unspecified provider. us Historical Provider Final Res ult * CT Abdomen Pelvis WO Contrast (08/14/2020 12:00 AM CDT) Anatomical Region Laterality Modality Body N/A Computed Tomogra phy 08/14/2020 9:12 PM CDT Narrative 08/14/2020 9:21 PM CDT Patient Name: MALIKA LAN ?Ordering Dr: Stephani Bernard PA-C ?? D.O.B: 1990 ? Exam Date: 08/14/20 ?? 0000 ?? Age: 30 ?Sex: Female ? MR#: [id number] ?? Loc: ? RADIOLOGY REPORT ?? Order #[id number] ?? CT Scan ? CT Abd/Pelvis WO IV Contrast ? Signed ?? EXAM DESCRIPTION: ?? CT Abd/Pelvis WO IV Contrast ? REASON FOR STUDY: ?? Left flank pain today ? TECHNIQUE: ??CT scan of the abdomen and pelvis performed without intravenous ?? and ??without oral contrast using helical scanning technique. Reconstructed ?? coronal and sagittal MPR images reviewed. All images stored on PACS. ? Automated exposure control was used as a dose optimization technique for this ?? examination. ? COMPARISON: ?? None available ? FINDINGS: ? The sensitivity for detection of visceral lesions is diminished without the ?? use of intravenous contrast. ? LOWER CHEST: ??No significant pulmonary abnormalities. No effusion. ? LIVER: ??Normal size. ??No identified cystic or solid masses. ? GALLBLADDER: ??Surgically absent ? BILE DUCTS: ??No intrahepatic or extrahepatic ductal dilatation. ? SPLEEN: ??Normal size. ??No focal lesions. ? PANCREAS: ??No identified cystic or solid masses. ??No significant ?? calcifications. No adjacent inflammation or peripancreatic fluid collections. ?? Pancreatic duct not dilated. ? ADRENALS: ??Normal. ? KIDNEYS/URINARY TRACT: ? Right kidney demonstrates a punctate, 1 mm density over the lower pole calyx. ? No hydronephrosis or hydroureter. ? Left kidney demonstrates no definite stone or hydronephrosis. ? Urinary bladder is unremarkable. ? GI: ??No dilated bowel loops. No obvious wall thickening. ??Normal appendix. ??No ?? significant diverticular disease. ? PERITONEUM: ??No ascites or free air. ? RETROPERITONEUM: ??Small bowel mesentery demonstrates subtle indistinct hazy ?? opacity extending from the periaortic region along the celiac axis and ?? superior mesenteric arteries. ??Nonenlarged lymph nodes along the mesentery, in ?? the periaortic space may be postinflammatory in nature. ? REPRODUCTIVE: ??No significant abnormality. ? VASCULATURE: ??No abdominal aortic aneurysm. ? MUSCULOSKELETAL: ??No significant abnormality. ? OTHER: ??No other abnormality. ? IMPRESSION: ?? Subtle changes of periaortic and mesenteric induration with ?? nonenlarged lymph nodes may be postinflammatory in nature. ? Punctate nonobstructive right lower pole renal stone. ? No hydronephrosis or hydroureter bilaterally. ? THIS IS AN ELECTRONICALLY VERIFIED FINAL REPORT ?? 08/14/2020 9:21 PM - Electronically signed by Carl Angeles M.D. ?? Carl Angeles M.D. ? RB ?? D: ??08/14/2020 9:21 PM ?? T: ? Report ID: [id number] ?? Reading Location: ??[id number] ? REPORT ELECTRONICALLY SIGNED IN OTHER VENDOR SYSTEM ?? Resulting Agency Comment E Procedure Note Carl Angeles MD - 08/14/2020 Patient Name: RIKYMALIKAMEET Mena Dr: Stephani Bernard PA-C DAdileneO.B: 1990 Exam Date: 08/14/20 0000 Age: 30 Sex: Female MR#: [id number] Loc: RADIOLOGY REPORT Order #[id number] CT Scan CT Abd/Pelvis WO IV Contrast Signed EXAM DESCRIPTION: CT Abd/Pelvis WO IV Contrast REASON FOR STUDY: Left flank pain today TECHNIQUE: CT scan of the abdomen and pelvis performed withoutintravenous and without oral contrast using helical scanning technique.Reconstructed coronal and sagittal MPR images reviewed. All images stored on PACS. Automated exposure control was used as a dose optimization technique forthis examination. COMPARISON: None available FINDINGS: The sensitivity for detection of visceral lesions is diminished withoutthe use of intravenous contrast. LOWER CHEST: No significant pulmonary abnormalities. No effusion. LIVER: Normal size. No identified cystic or solid masses. GALLBLADDER: Surgically absent BILE DUCTS: No intrahepatic or extrahepatic ductal dilatation. SPLEEN: Normal size. No focal lesions. PANCREAS: No identified cystic or solid masses. No significant calcifications. No adjacent inflammation or peripancreatic fluidcollections. Pancreatic duct not dilated. ADRENALS: Normal. KIDNEYS/URINARY TRACT: Right kidney demonstrates a punctate, 1 mm density over the lower polecalyx. No hydronephrosis or hydroureter. Left kidney demonstrates no definite stone or hydronephrosis. Urinary bladder is unremarkable. GI: No dilated bowel loops. No obvious wall thickening. Normalappendix. No significant diverticular disease. PERITONEUM: No ascites or free air. RETROPERITONEUM: Small bowel mesentery demonstrates subtle indistincthazy opacity extending from the periaortic region along the celiac axis and superior mesenteric arteries. Nonenlarged lymph nodes along themesentery, in the periaortic space may be postinflammatory in nature. REPRODUCTIVE: No significant abnormality. VASCULATURE: No abdominal aortic aneurysm. MUSCULOSKELETAL: No significant abnormality. OTHER: No other abnormality. IMPRESSION: Subtle changes of periaortic and mesenteric induration with nonenlarged lymph nodes may be postinflammatory in nature. Punctate nonobstructive right lower pole renal stone. No hydronephrosis or hydroureter bilaterally. THIS IS AN ELECTRONICALLY VERIFIED FINAL REPORT 08/14/2020 9:21 PM - Electronically signed by Carl GILL T: Report ID: [id number] Reading Location: [place] [address] REPORT ELECTRONICALLY SIGNED IN OTHER VENDOR SYSTEM Stephani FRAZIER IMG CT PROCEDURES Final Result documented in this encounter Visit Diagnoses Not on filedocumented in this encounter Care Teams Rubber Compounder Formulator Relationship Specialty Start Date End Date Jay Barrett MD PCP - General 06/21/18 documented as of this encounter
--- OUTSIDE RECORDS SUMMARY | 2024-04-09 23:33 | XMS_ITS | Encounter Summary ---
Author Organization [facility] Healthcare Address [address] [place] [address] Care Team Providers Care Digital Media Representative Name Role Phone Jay Barrett MD Primary Care Provider [phone] Reason for Visit * Reason Onset Date Comments IUD/Nexplanon 06/24/2023 Encounter Details Date Type Department Care Team ([facility] st Contact Info) Description 06/24/2023 Telephone [facility] [address] [place] [address] Erma Galeano, DO [address] [place] [address] IUD/Nexplanon Social History Tobacco Use Types Packs/Day Years Used Date Smoking Tobacco: Every Day Cigarettes 0.5 14 Started: 2010 Personal Safety Answer Date Recorded Getting School Help Needed Not on file Comments No Sex and Gender Information Value Date Recorded Sex Assigned at Not on file 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 I gave the pt the number so she could call. documented in this encounter Plan of Treatment Not on file documented as of this encounter Visit Diagnoses Not on filedocumented in this encounter Care Teams Digital Media Representative Relationship Specialty Start Date End Date Jay Barrett MD PCP - General 06/21/18 documented as of this encounter
--- OUTSIDE RECORDS SUMMARY | 2024-04-09 23:33 | XMS_ITS | Encounter Summary ---
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 Gender Identity Not on file Sexual Orientation Not on file documented as of this encounter Plan of Treatment Not on file documented as of this encounter Procedures Procedure Name Priority Date/Time Associated Diagnosis Comments URINALYSIS AND REFLEX TO MICROSCOPIC AND CULTURE Routine 08/14/2020 3:44 PM CDT CBC WITH AUTO DIFFERENTIAL Routine 08/14/2020 3:19 PM CDT COMPREHENSIVE METABOLIC PANEL Routine 08/14/2020 3:19 PM CDT documented in this encounter Results * (ABNORMAL) Urinalysis reflex to microscopic and culture (08/14/2020 3:44 PM CDT) Ur Collection Type CLEAN CATCH [facility] Ur Culture Indicated? C S NOT INDICATED [facility] Urine Color YELLOW YELLOW [facility] Urine Clarity CLEAR CLEAR [facility] Urine Glucose (UA) NORMAL NORMAL mg/dL [facility] Urine Bilirubin NEGATIVE NEGATIVE mg/dl [facility] Urine Ketones NEGATIVE NEGATIVE mg/dL [facility] Ur Specific [place] 1.011 1.005 - 1.025 [facility] Urine Blood 0.03(A) NEGATIVE mg/dl [facility] Urine pH 6.0 5.0 - 8.0 [facility] Urine Protein NEGATIVE NEGATIVE mg/dL [facility] Urine Urobilinogen NORMAL NORMAL mg/dL [facility] Urine Nitrite NEGATIVE NEGATIVE [facility] Ur Leukocyte Esterase NEGATIVE NEGATIVE Salo/ul [facility] Ur Microscopic Review Not Indicated [facility] Urine RBC 0-2 0 - 2 /HPF [facility] Urine WBC 0-5 0 - 2 /HPF [facility] Urine Mucus Present /LPF [facility] Ur Squamous Epith Cells 1-5 /HPF [facility] 08/14/2020 3:44 PM CDT 08/14/2020 3:45 PM CDT Narrative [facility] - 08/14/2020 3:59 PM CDT Indication(s) for ordering ?? Pain-pelv/flank/suprapubc mkr Clean catch Resulting Agency Comment ER us Stephani FRA[facility] MICROBIOLOGY - GENERAL ORDER KRYSTINA Final Result [facility] [address] [place] [address], [facility] [phone] * CBC with auto differential (08/14/2020 3:19 PM CDT) WBC 9.0 3.8 - 9.9 X10 3/ul [facility] RBC 4.82 3.90 - 5.20 x10 6/ul [facility] Hemoglobin 13.7 11.9 - 15.5 g/dL [facility] Hct 40.4 35.6 - 45.5 % [facility] MCV 83.8 81.3 - 96.4 fl [facility] MCH 28.4 27.1 - 33.3 pg [facility] MCHC 33.9 32.3 - 35.7 g/dl [facility] RDW 14.6 11.1 - 14.9 % [facility] Plt Count 304 150 - 400 x10 3/ul [facility] MPV 9.5 9.1 - 12.3 fl [facility] Neut % 56.8 % [facility] Immature Gran % 0.1 % [place] [facility] Lymph % 36.3 % [facility] [place] % 5.6 % [facility] Eos % 1.0 % [facility] AUTO BASO % 0.2 % [facility] NEUTROPHIL ABS # 5.1 1.7 - 6.5 x10 3/ul [facility] Immature Gran # 0.0 0.0 - 0.1 x10 3/ul [facility] Absolute Lymphs (auto) 3.3 0.8 - 3.3 x10 3/ul [facility] Absolute Monos (auto) 0.5 0.2 - 0.8 x10 3/ul [facility] Absolute Eos (auto) 0.1 0.0 - 0.5 x10 3/ul [facility] BASOPHIL ABS # 0.0 0.0 - 0.1 x10 3/ul [facility] Nucleat RBC Rel Count 0.0 #/100WBC [facility] NRBC abs 0.00 0.00 - 0.01 x10 3/ul [facility] Absolute Neutrophils 5,100 200 - 8,000 /ul [facility] 08/14/2020 3:19 PM CDT 08/14/2020 3:39 PM CDT Narrative Resulting Agency Comment ER us Stephani [facility] BLOOD ORDERABLES Final Resul t [facility] [address] [place] [address], [facility] [phone] * (ABNORMAL) Comprehensive metabolic panel (08/14/2020 3:19 PM CDT) Sodium 139 135 - 145 mmol/L [facility] Potassium 3.6 3.3 - 5.1 mmol/L [facility] Chloride 105 96 - 108 mmol/L [facility] Carbon Dioxide 26 22 - 32 mmol/L [facility] Anion Gap 8 7 - 16 [facility] Glucose 96 70 - 100 mg/dL [facility] BUN 6(L) 8 - 25 mg/dL [facility] Creatinine 0.8 0.5 - 1.1 mg/dL [facility] Comment: NOTE: Estimated GFR (Cockroft-Gault) will NOT be calculated unless patient Height and Weight were entered. Also, Kidney Disease Stage (GFR) and Estimated GFR (Cockroft-Gault) will NOT be calculated if Creatinine result is <0.2. Kidney Disease Stage 90 mL/MIN [facility] Comment: NOTE; ??The GFR is an estimated value using the creatinine, sex, age, and race of the patient. THE Estimated Kidney Disease GFR is validated for AGES 18-70 YEARS STAGE ?mL/Min ?DESCRIPTION ??1 ?90 mL/min or more ?Normal or elevated GFR ??2 ? 60-89 mL/min ?Mildly decreased GFR ??3 ? 30-59 mL/min ?Moderately decreased GFR ??4 ? 15-29 mL/min ?Severely decreased GFR ??5 ? <15 mL/min ? Kidney failure or on dialysis Est GFR (Cockcroft-G) 114 ml/MIN [facility] Comment: Estimated GFR(Cockroft-Gault)is used to calculate patient medication dosage Calcium 9.4 8.6 - 10.3 mg/dL [facility] Total Protein 7.1 6.4 - 8.3 g/dL [facility] Albumin 4.5 3.5 - 5.0 g/dL [facility] Globulin 2.6 2.3 - 3.5 gm/dL [facility] Albumin/Globulin Ratio 1.7 1.1 - 1.8 [facility] Total Bilirubin 0.4 0.0 - 1.2 mg/dL [facility] AST 19 0 - 32 U/L [facility] ALT 10 0 - 33 U/L [facility] Alkaline Phosphatase 59 35 - 104 U/L [facility] 08/14/2020 3:19 PM CDT 08/14/2020 3:39 PM CDT Narrative Resulting Agency Comment ER us Stephani FRAZIER [facility] BLOOD ORDERABLES Final Resul t [facility] [address] [place] [address], [facility] [phone] documented in this encounter Visit Diagnoses Not on filedocumented in this encounter Care Teams Trimmer Sorter Relationship Specialty Start Date End Date Jya Barrett MD PCP - General 06/21/18 documented as of this encounter
--- OUTSIDE RECORDS SUMMARY | 2024-04-09 23:33 | XMS_ITS | Encounter Summary ---
Author Organization [facility] Healthcare Address [address] [place] [address] Care Team Providers Care Pattern Chain Maker Supervisor Name Role Phone Jay Barrett MD Primary Care Provider [phone] Encounter Details Date Type Department Care Team ([facility] st Contact Info) Description 06/18/2023 Telephone [facility] [address] [place] [address] Jeanie Garcia LPN Social History Tobacco Use Types Packs/Day Years Used Date Smoking Tobacco: Every Day Cigarettes 0.5 14 Started: 2010 Personal Safety Answer Date Recorded Getting School Help Needed Not on file Comments No Sex and Gender Information Value Date Recorded Sex Assigned at Not on file 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 * Telephone Encounter - Jeanie Garcia LPN - 06/18/2023 1:26 PM CDT ----- Message from Erma Galeano DO sent at 06/18/2023 12:54 PM CDT ----- Please inform the patient her pap smear was normal but with +HPV so will plan for a repeat in 1 year. STD screening was negative. documented in this encounter Plan of Treatment Not on file documented as of this encounter Visit Diagnoses Not on filedocumented in this encounter Care Teams Pattern Chain Maker Supervisor Relationship Specialty Start Date End Date Jay Barrett MD PCP - General 06/21/18 documented as of this encounter
--- OUTSIDE RECORDS SUMMARY | 2024-04-09 23:33 | XMS_ITS | Encounter Summary ---
Author Organization [facility] Healthcare Address [address] [place] [address] Care Team Providers Care Singer And Unloader Name Role Phone Unavailable Primary Care Provider Unavailabl e Encounter Details Date Type Department Care Team (Late st Contact Info) Description 09/06/2013 3:09 PM CDT - 09/06/2013 7:04 PM CDT Hospital Encounter [facility] Basim Arias MD [address] [address] Cellulitis and abscess of trunk Social History Tobacco Use Types Packs/Day Years Used Date Smoking Tobacco: Never Assessed Comments Unknown Sex and Gender Information Value Date Recorded Sex Assigned at Not on file Legal Sex Female 1:18 AM BRIM ROUNDER Gender Identity Not on file Sexual Orientation Not on file documented as of this encounter Plan of Treatment Not on file documented as of this encounter Procedures Procedure Name Priority Date/Time Associated Diagnosis Comments URINALYSIS Routine 09/06/2013 6:30 PM CDT SERUM COMPREHENSIVE METABOLIC PANEL Routine 09/06/2013 6:06 PM CDT SERUM CHORIONIC GONADOTROPIN (HCG) IDENTIFICATION Routine 09/06/2013 6:06 PM CDT BLOOD WBC CELL MORPHOLOGIC EXAM, AUTO Routine 09/06/2013 6:06 PM CDT BLOOD CELL COUNT (CBC) Routine 4 6:06 PM CDT DISCHARGE LABORATORY CUMULATIVE REPORT Routine 09/06/2013 12:00 AM CDT documented in this encounter Results * Urinalysis (09/06/2013 6:30 PM CDT) Color, ur YELLOW YELLOW HISTORICAL RESULTS pH, ur 6.5 6.0 HISTORICAL RESULTS Clarity, ur CLEAR CLEAR HISTORIC AL RESULTS Protein, ur Negative NEGATIVE HISTORIC AL RESULTS Specific gravity, ur 1.025 1.003 - 1.030 gu HISTORICAL RESULTS Glucose, ur Negative NEGATIVE HISTORIC AL RESULTS Leukocyte esterase, ur Negative NEGATIVE HISTORICAL RESULTS Ketones, ur Trace NEGATIVE HISTORIC AL RESULTS Nitrites, ur Negative NEGATIVE HISTORI DAVID RESULTS Urobilinogen, quant, ur 1.0 0.2 - 1.0 mg/dl HISTORICAL RESULTS Bilirubin, ur Negative NEGATIVE HISTOR ICAL RESULTS U Blood Negative NEGATIVE HISTORICAL RESULTS Urine 09/06/2013 6:30 PM CDT Basim Arias MD LAB BLOOD ORDERABLES Final Result Performing Organization Address City/[facility] Co de Phone Number HISTORICAL RESULTS * Serum chorionic gonadotropin (HCG) identification (09/06/2013 6:06 PM CDT) HCG, qual Negative NEGATIVE HISTORICAL RESULTS Serum 09/06/2013 6:06 PM CDT Basim Arias MD LAB BLOOD ORDERABLES Final Result Performing Organization Address City/[facility] Co de Phone Number HISTORICAL RESULTS * Blood cell count (CBC) (09/06/2013 6:06 PM CDT) WBC 5.4 4.0 - 10.5 K/cumm HISTORICAL RESULTS RBC 4.67 4.20 - 5.40 M/cumm HISTORICAL RESULTS Hgb 14.5 12.0 - 16.0 g/dl HISTORICAL RESULTS Hct 41.0 37.0 - 47.0 % HISTORICAL RESULTS MCV 87.8 77.0 - 97.0 fl HISTORICAL RESULTS MCH 31.0 23.0 - 34.0 pg HISTORICAL RESULTS MCHC 35.4 32.0 - 36.0 g/dl HISTORICAL RESULTS Rdw 12.2 11.5 - 14.5 % HISTORICAL RESULTS Platelets 211 150 - 400 K/cumm HISTORICAL RESULTS MPV 9.8 7.4 - 10.4 fl HISTORICAL RESULTS Blood specimen (specimen) 09/06/2013 6:06 PM CDT Basim Arias MD LAB BLOOD ORDERABLES Final Result Performing Organization Address City/[facility] de Phone Number HISTORICAL RESULTS * (ABNORMAL) Blood WBC cell morphologic exam, auto (09/06/2013 6:06 PM CDT) Pathologist [facility] Lymphocytes 27.6 25.0 - 33.0 % HISTORICAL RESULTS Monos 10.1 0.0 - 13.0 % HISTORICAL RESULTS Neutrophils 60.6 54.0 - 69.0 % HISTORICAL RESULTS Eosinophils 1.5 0.0 - 10.0 % HISTORICAL RESULTS Basophils 0.2 0.0 - 1.0 % HISTORICAL RESULTS Immature granulocytes 0.0 0.0 - 1.0 % HISTORICAL RESULTS Lymphocytes, abs 1.5 1.2 - 3.4 K/cumm HISTORICAL RESULTS Monocytes, absolute 0.5(L) 1.1 - 1.9 K/cumm HISTORICAL RESULTS Neutrophils, abs 3.3 1.4 - 6.5 K/cumm HISTORICAL RESULTS Eosinophils, abs 0.1 0.0 - 0.7 cells/cumm HISTORICAL RESULTS Basophils, abs 0.0 0.0 - 0.2 K/cumm HISTORICAL RESULTS Immature granulocyte, abs 0.0 0.0 - 0.0 K/cumm HISTORICAL RESULTS Blood specimen (specimen) 09/06/2013 6:06 PM CDT Basim Arias MD LAB BLOOD ORDERABLES Final Result Performing Organization Address City/[facility] Co de Phone Number HISTORICAL RESULTS * (ABNORMAL) Serum comprehensive metabolic panel (09/06/2013 6:06 PM CDT) Pathologist [facility] BUN 9.0 6.0 - 23.0 mg/dl HISTORICAL RESULTS Sodium 141 134 - 143 mmol/L HISTORICAL RESULTS Potassium, sr 3.7 3.4 - 5.0 mmol/L HISTORICAL RESULTS Chloride 107 99 - 108 mmol/L HISTORICAL RESULTS CO2 28 23 - 32 mmol/L HISTORICAL RESULTS Glucose 86 70 - 199 mg/dl HISTORICAL RESULTS Comment: Note:The glucose is assumed non fasting Fastin-99 mg/dl Random: 70-199 mg/dl Either a fasting glucose > 126 mg/dL or a random glucose > 200 mg/dL plus symptoms is diagnostic of diabetes when confirmed on another day. Fasting values > 100 mg/dl but < 125 mg/dL are diagnostic of impaired fasting glucose. New reference ranges implemented 02/07/2013. Creatinine 0.99 0.60 - 1.30 mg/dl HISTORICAL RESULTS Comment: eGFR: >70 ml/min/1.73sq.m if non -[place]an. eGFR: >70 ml/min/1.73sq.m if -Botswanan. AVE GFR for 20-29 yr. age group: ??116 ml/min/1.73sq.m Calculated using the MDRD Equation BUN/creat ratio 9(L) 10 - 20 HIST ORICAL RESULTS A. gap 10 7 - 14 mmol/L HISTORICAL RESULTS Protein, sr 6.5 6.4 - 8.0 g/dl HISTORICAL RESULTS Alb 3.2(L) 3.3 - 4.5 g/dl HISTORICAL RESULTS Alb/glob ratio 1.0(L) 1.1 - 1.8 HISTO RICAL RESULTS Calcium 8.3(L) 8.6 - 9.8 mg/dl HISTORICAL RESULTS Bilirubin 0.3 0.0 - 1.1 mg/dl HISTORICAL RESULTS Alk phos 77 44 - 125 Units/L HISTORICAL RESULTS AST 23 5 - 40 Units/L HISTORICAL RESULTS ALT 19 15 - 70 Units/L HISTORICAL RESULTS Serum 09/06/2013 6:06 PM CDT us Basim Arias MD LAB BLOOD ORDERABLES Final Result HISTORICAL RESULTS * Discharge Laboratory Cumulative Report (09/06/2013 12:00 AM CDT) 09/06/2013 Narrative HISTORICAL RESULTS - 09/07/2013 12:37 AM CDT Patient No: [id number] ? [facility] Patient Name: MALIKA LAN ? [facility] Age: 23 YRS ?: 1990 ?Sex:F ?[address] )[id number] ?? Adm Dt: 09/06/2013 ?[place], [place] ??[id number] Created: 09/07/2013 ??0037 ?? Pt. Type: E ? Discharge Dt: 09/06/2013 ? Pathologists: Niki Onofre MD Admit Attend Dr: BASIM ARIAS MD ? BLOOD CELL COUNTS ?Collection Date: ?06/10/14 ?Collection Time: ?1806 ? Ref Range: ?? Units: [4.00-10.50] /CMM ? WBC X 10^3 ?5.37 [4.20-5.40] ??/CMM ? RBC X 10^6 ?4.67 [12.0-16.0] ??G/DL ? HGB ? 14.5 [37.0-47.0] ??% ?HCT ? 41.0 [77.0-97.0] ??FL ? MCV ? 87.8 [23.0-34.0] ??PG ? MCH ? 31.0 [32.0-36.0] ??% ?MCHC ?35.4 [11.5-14.5] ??% ?RDW ? 12.2 [150-400] ?? /CMM ? PLT X 10^3 ? 211 ?BLOOD CELL DIFFERENTIAL ?Collection Date: ?09/06/13 ?Collection Time: ?1806 ? Ref Range: ?? Units: [54.0-69.0] ??% ?NEUTROPHILS ? 60.6 [25.0-33.0] ??% ?LYMPHOCYTES ? 27.6 [0.0-13.0] ??% ?MONOCYTES ? 10.1 [0.0-10.0] ??% ?EOSINOPHILS ?1.5 [0.0-1.0] ?? % ?BASOPHILS ?0.2 ? /CMM ? A LYMPHOCYTE ? 1.5 [0.0-1.0] ?? % ?IMM GRAN % ? 0.0 [0.00-0.02] ??/CMM ? A IMM GRAN ?0.00 [1.1-1.9] ?? /CMM ? A MONOCYTE ? 0.5 L [1.4-6.5] ?? /CMM ? A NEUTROPHIL ? 3.3 [0.0-0.7] ?? /CMM ? A EOSINOPHIL ? 0.1 [0.0-0.2] ?? /CMM ? A BASOPHIL ? 0.0 Footnotes and Symbols: L = Low ?? CONTINUED ?Page: ?? 1 Patient No: [id number] ? [facility] Patient Name: RIKY, MALIKA A ? [facility] Age: 23 YRS ?: 1990 ?Sex:F ?[address] )[id number] ?? Adm Dt: 09/06/2013 ?[place] ??[address] Created: 09/07/2013 ??0037 ?? Pt. Type: E ? Discharge Dt: 09/06/2013 ? Pathologists: Niki Onofre MD Admit Attend Dr: BASIM ARIAS MD ? GENERAL CHEMISTRY ?Collection Date: ?09/06/13 ?Collection Time: ?1806 ? Ref Range: ?? Units: [134-143] ?? MMOL/L ? SODIUM ? 141 [3.4-5.0] ?? MMOL/L ? POTASSIUM ?3.7 [99.0-108.0] MMOL/L ? CHLORIDE ? 107.0 [23.0-32.0] ??MMOL/L ? TOTAL CO2 ? 27.9 ?? [7-14] ?MMOL/L ? ANION GAP ? 10 ??[70-199] ?? MG/DL ?GLUCOSE ? 86 f [6.4-8.0] ?? G/DL ? TOTAL PROTEIN ?6.5 [3.3-4.5] ?? G/DL ? ALBUMIN ?3.2 L [1.1-1.8] ?A/G RATIO ?1.0 L [8.6-9.8] ?? MG/DL ?CALCIUM ?8.3 L [0.0-1.1] ?? MG/DL ?BILI TOTAL ? 0.3 ??[44-125] ?? U/L ?ALK PHOS ?77 ?? [5-40] ?U/L ?AST(SGOT) ? 23 f ??[15-70] ?U/L ?ALT(SGPT) ? 19 f [6.0-23.0] ??MG/DL ?BUN ?9.0 ??[10-20] ? B/C RATIO ?9 L Footnotes and Symbols: L = Low, f = Footnote GLUCOSE (03/01/13 -- Current) Note:The glucose is assumed non fasting Fastin-99 mg/dl Random: 70-199 mg/dl Either a fasting glucose > 126 mg/dL or a random glucose > 200 mg/dL plus symptoms is diagnostic of diabetes when confirmed on another day. Fasting values > 100 mg/dl but < 125 mg/dL are diagnostic of impaired fasting glucose. New reference ranges implemented 02/07/2013. AST(SGOT) (08/11/13 -- Current) ALT(SGPT) (10/19/12 -- Current) ?? CONTINUED ?Page: ?? 2 Patient No: [id number] ? [facility] Patient Name: MALIKA LAN ? [facility] Age: 23 YRS ?: 1990 ?Sex:F ?[address] )[id number] ?? Adm Dt: 09/06/2013 ?[place], [place] ??[address] Created: 09/07/2013 ??0037 ?? Pt. Type: E ? Discharge Dt: 09/06/2013 ? Pathologists: Niki Onofre MD Admit Attend Dr: BASIM ARIAS MD ? GENERAL CHEMISTRY ?Collection Date: ?09/06/13 ?Collection Time: ?1806 ? Ref Range: ?? Units: [0.60-1.30] ??MG/DL ?CREATININE ?0.99 f ?09/06/13 1806 eGFR: >70 ml/min/1.73sq.m if non -[place]otswanan. eGFR: >70 ml/min/1.73sq.m if -Botswanan. AVE GFR for 20-29 yr. age group: ??116 ml/min/1.73sq.m Calculated using the MDRD Equation FOOTNOTE ADDED ON ?? 09/06/13 ?? AT 1856 BY 999 ? HORMONES ?Collection Date: ?09/06/13 ?Collection Time: ?1806 ? Ref Range: ?? Units: [NEGATIVE] ?HCG QUALITATIVE ? NEGATIVE Footnotes and Symbols: f = Footnote ?? CONTINUED ?Page: ?? 3 Patient No: [id number] ? [facility] Patient Name: MALIKA LAN ? [facility] Age: 23 YRS ?: 1990 ?Sex:F ?[address] )[id number] ?? Adm Dt: 09/06/2013 ?[place] ??[address] Created: 09/07/2013 ??0037 ?? Pt. Type: E ? Discharge Dt: 09/06/2013 ? Pathologists: Niki Onofre MD Admit Attend Dr: BASIM ARIAS MD ?URINALYSIS ?Collection Date: ?09/06/13 ?Collection Time: ?1830 ? Ref Range: ?? Units: [YELLOW] ? U COLOR ? YELLOW ??[CLEAR] ? U APPEARANCE ? CLEAR [1.003-1.030] ? U SPEC GRAVITY ? 1.025 [NEGATIVE] ?U LEUKO ESTRASE ? NEGATIVE [NEGATIVE] ?U NITRITE ? NEGATIVE ?? [6.0] ?U PH ? 6.5 [NEGATIVE] ?U PROTEIN ? NEGATIVE [NEGATIVE] ?U GLUCOSE ? NEGATIVE [NEGATIVE] ?U KETONES ?TRACE [0.2- 1.0] ?UROBILINOGEN ? 1.0 [NEGATIVE] ?U BILIRUBIN ? NEGATIVE [NEGATIVE] ?U BLOOD ? NEGATIVE ?? END OF CHART ? Page: ?? 4 us Historical Provider MD LAB BLOOD ORDERABLES Jana l Result HISTORICAL RESULTS documented in this encounter Visit Diagnoses Diagnosis Cellulitis and abscess of trunk documented in this encounter
--- OUTSIDE RECORDS SUMMARY | 2024-04-09 23:33 | XMS_ITS | Encounter Summary ---
Author Organization [facility] Healthcare Address [address] [place] [address] Care Team Providers Care Paving Crew Foreman Name Role Phone Jay Barrett MD Primary Care Provider [phone] Reason for Visit * Reason Comments New Patient Encounter Details Date Type Department Care Team ([facility] st Contact Info) Description 06/11/2023 10:10 AM CDT Office Visit [facility] [address] [place] [address] Erma Galeano, [address] [place] [address] Encounter for annual routine gynecological examination (Primary Dx); Screening for malignant neoplasm of cervix; Screen for sexually transmitted diseases; Abnormal uterine bleeding (AUB) Social History Tobacco Use Types Packs/Day Years Used Date Smoking Tobacco: Every Day Cigarettes 0.5 14 Started: 2010 Personal Safety Answer Date Recorded Getting School Help Needed Not on file Comments No Sex and Gender Information Value Date Recorded Sex Assigned at Not on file Legal Sex Female 1:18 AM SCRIPT GIRL Gender Identity Not on file Sexual Orientation Not on file Occupation Industry Job Start Date Job End Date [employer] Not on file Not on file Not o n file documented as of this encounter Last Filed Vital Signs Vital Sign Reading Time Taken Comments Blood Pressure 122/80 06/11/2023 10:20 AM CDT Pulse - - Temperature - - Respiratory Rate - - Oxygen Saturation - - Inhaled Oxygen Concentration - - Weight 82 kg (180 lb 12.8 oz) 06/11/2023 10:20 A M CDT Height 172.7 cm (5' 8 ) 06/11/2023 10:20 AM CDT Body Mass Index 27.49 06/11/2023 10:20 AM CDT documented in this encounter Progress Notes * Erma Galeano Sabina, DO - 06/11/2023 10:10 AM CDT New WAREHOUSE EXAMINER Subjective: Malika Florentino is a 32 y.o. year old female who presents for a new patient visit. She is unsure when her last pap was. Denies any h/o abnormals. S/p tubal ligation in 2018 for contraception. She complains of long lasting periods with heavy bleeding and painful cramping. They are irregular and typically last around 8 days or so. Menstrual History: Patient's last menstrual period was 05/17/2023 (exact date). Sexual History: OB History 2 Para 2 Term 2 AB Living 2 SAB IAB Ectopic Multiple Live Births 2 # Outcome Date GA Labor/2nd Weight Sex Delivery Anes PTL Lv A1 A5 1 Term 11/12/08 40w0d 3.402 kg (7 lb 8 oz) M Vaginal Living 2 Term 05/26/13 42w0d 3.459 kg (7 lb 10 oz) F Vaginal Living History reviewed. No pertinent past medical history. Current Outpatient Medications: HYDROcodone-acetaminophen (NORCO) 5-325 mg per tablet, Take 1 tablet by mouth every 6 (six) hours as needed for pain (Patient not taking: Reported on 06/11/2023), Disp: 15 tablet, Rfl: 0 ibuprofen (ADVIL,MOTRIN) 800 mg tablet, Take 1 tablet (800 mg total) by mouth 3 (three) times a day(Patient not taking: Reported on 06/11/2023), Disp: 21 tablet, Rfl: 0 No Known Allergies History reviewed. No pertinent family history. Social History Tobacco Use Smoking status: Every Day Current packs/day: 0.50 Average packs/day: 0.5 packs/day for 13.2 years (6.6 ttl pk-yrs) Types: Cigarettes Start date: 2010 Smokeless tobacco: None Substance and Sexual Activity Drug use: Yes Types: Marijuana Comment: Monthly Sexual activity: Yes Partners: Male control/protection: Tubal Ligation Alcohol Use: Not on file Review of Systems Constitutional: Negative for fatigue, fever and unexpected weight change. HENT: Positive for dental problem. Respiratory: Negative for shortness of breath and wheezing. Cardiovascular: Negative for chest pain and palpitations. Gastrointestinal: Negative for abdominal pain, blood in stool, nausea and vomiting. Genitourinary: Positive for frequency. Negative for dysuria, hematuria, urgency, vaginal bleeding and vaginal discharge. Skin: Positive for rash. Hair loss Objective: BP 122/80 Ht 172.7 cm (5' 8 ) Wt 180 lb 12.8 oz (82 kg) LMP 05/17/2023 (Exact Date) BMI 27.49 kg/m?? Physical Exam Constitutional: Appearance: She is well-developed. Cardiovascular: Rate and Rhythm: Normal rate and regular rhythm. Pulmonary: Effort: Pulmonary effort is normal. Breath sounds: Normal breath sounds. Chest: Breasts: Right: No mass or tenderness. Left: No mass or tenderness. Abdominal: Palpations: Abdomen is soft. Tenderness: There is no abdominal tenderness. Genitourinary: Rectum normal, vagina normal and uterus normal. Right labia: normal. Left Labia: normal. No vaginal discharge. Right adnexa: normal. Left adnexa: normal. Cervix: Normal exam. Musculoskeletal: General: No tenderness. Skin: General: Skin is warm and dry. Neurological: Mental Status: She is alert and oriented to person, place, and time. Psychiatric: Behavior: Behavior normal. Assessment and Plan: Malika Florentino is a 32 y.o. female who presents for a well woman exam. WWE - Screening guidelines reviewed. Pap collected. - STD screening obtained. - S/p tubal for contraception. Abnormal Uterine Bleeding - Discussed possible etiologies with the patient. Testosterone ordered to evaluate for PCOS although she does not meet the typical phenotype. TSH ordered as well. Pelvic US ordered to evaluate for anything structural. Discussed that we do sometimes see bleeding issues after a tubal because prior tothe tubal, the patient has been on hormones for years and this is what their cycle likely would have been all along. RTC in 1 year for WWE and RAMÍREZ Galeano DO 06/11/2023 documented in this encounter Plan of Treatment Not on file documented as of this encounter Results * Pap and High Risk HPV and Genotyping (Cytology Component) (06/11/2023 12:05 PM CDT) Thin prep (Pap test) 06/11/2023 12:05 PM CDT 06/11/2023 12:05 PM CDT Narrative PATHOLOGY CH - 06/16/2023 3:39 PM CDT [facility] Department of Pathology [address] [place] [address] Final Report with Addendum Note to Patients: [...] details. Patient Name: ??MALIKA FLORENTINO Yanci Address: ??[address] [place] [address], ?? [place], [place] [address] Gender: ??F : ??1990 (Age: 32) Service: ?? Location: ?? [facility] #: ??[id number] Patient Type: ?? SPECIMEN Taken: ??06/11/2023 Received: [...] this test have been verified by the [facility] laboratory. ??Correlate with reported [...] determined by the Surgical Pathology Department at [facility] as part of an ongoing quality assurance assistant program and in compliance with federally mandated [...] characteristics determined by the Surgical Pathology Department [facility]. ??It has not been cleared or approved by the U. S. Food and Drug Administration. Erma Galeano DO LAB CYTOLOGY ORDERABLES Final Result PATHOLOGY [address] [place] [address] * (ABNORMAL) High Risk HPV DNA Detection with Genotyping (Molecular component) (06/11/2023 10:55 AM CDT) HPV HR [address] [facility] Comment:Testing performed by : [facility], [address] [place]., [address] HPV HR 18 Not Detected Not Detected [facility] Comment:Testing performed by : [facility], [address] [place]., [address] HPV HR Non 16/18 Detected(A) Not Detected [...] this test have been verified by the [facility] laboratory. Correlate with separately reported cytology results, as applicable. Interpretive data last revised 22 Testing performed by: [facility], [address] [place]., [address] Endocervical 06/11/2023 10:5 5 AM CDT 06/12/2023 12:07 PM CDT Narrative RASHEED DOLL - 06/13/2023 1:42 AM CDT Clinical history and diagnosis->Liquid-based PAP test with high risk HPV test- Z12.4 Number of vials->1 Testing type->Screening Last menstrual period (date if known)->05/17/23 Erma Galeano DO LAB BODY FLUIDS AND STO OLS ORDERABLES Final Result RAS[facility]ED [address] [address] Department of Laboratories [place], [place] [id number] [facility] * N. gonorrhoeae/C. trachomatis Amplification Thin prep (06/11/2023 10:55 AM CDT) C. trachomatis Not Detected [facility] Comment:Testing performed by : [facility], [address] [place] [address]., [address] N. gonorrhoeae Not Detected [facility] Comment: Interpretive Data This assay detects Chlamydia trachomatis and Neisseria gonorrhoeae by nucleic acid amplification testing (NAAT). This assay has been cleared by the [place] Food and Drug administration. The performance characteristics of this test have been verified by the [facility] laboratory. The performance characteristics of this test have not been evaluated in individuals less than 14 years of age. Current Interpretive Data was last revised on 2023. Testing performed by: [facility], [address] [place] [address]., [address] Thin prep 06/11/2023 10:5 5 AM CDT 06/12/2023 12:07 PM CDT Erma Galeano DO LAB MICROBIOLOGY - GENE RAL ORDERABLES Final Result Performing Organization Address City/[facility]/ZIP Co de Phone Number RASHEED DOLL [address] [place] [address] [facility] * Trichomonas vaginalis PCR Thin prep (06/11/2023 10:55 AM CDT) Trichomonas DNA Not Detected [facility] Comment: Interpretive Data This assay detects Trichomonas vaginalis by nucleic acid amplification testing (NAAT). This assay has been cleared by the [place] Food and Drug administration. The performance characteristics of this test have been verified by the [facility] laboratory. The performance of this test has not been evaluated in individuals less than 18 years of age. ?? Current Interpretive Data was last revised on 2023. Testing performed by: [facility], [address] [place] [address]., [address] Thin prep 06/11/2023 10:5 5 AM CDT 06/12/2023 12:07 PM CDT Erma Galeano DO LAB MICROBIOLOGY - GENE RAL ORDERABLES Final Result Performing Organization Address [facility] Co de Phone Number RASHEED DOLL [address] [address] [place] [address] [facility] documented in this encounter Visit Diagnoses Diagnosis Encounter for annual routine gynecological examination- Primary Screening for malignant neoplasm of cervix Screening for malignant neoplasm of the cervix Screen for sexually transmitted diseases Screening examination for venereal disease Abnormal uterine bleeding (AUB) Screening for malignant neoplasm of cervix Screening for malignant neoplasm of the cervix Screen for sexually transmitted diseases Screening examination for venereal disease documented in this encounter Care Teams Paving Crew Foreman Relationship Specialty Start Date End Date Jay Barrett MD PCP - General 06/21/18 documented as of this encounter
--- OUTSIDE RECORDS SUMMARY | 2024-04-09 23:33 | XMS_ITS | Encounter Summary ---
Author Organization [facility] Healthcare Address [address] [place] [address] Care Team Providers Care Machine Sizer Name Role Phone Unavailable Primary Care Provider Unavailabl e Encounter Details Date Type Department Care Team (Latest Contact Info) Description 07/17/2017 5:17 AM CDT - 07/17/2017 10:52 AM CDT Hospital Encounter [facility] José Miguel Guo MD [address] [place] [address] [place] [address] Encounter for sterilization Social History Tobacco Use Types Packs/Day Years Used Date Smoking Tobacco: Never Assessed Comments Unknown Sex and Gender Information Value Date Recorded Sex Assigned at Not on file Legal Sex Female 1:18 AM PLASTIC PARTS DESIGNER Gender Identity Not on file Sexual Orientation Not on file documented as of this encounter Last Filed Vital Signs Vital Sign Reading Time Taken Comments Blood Pressure 100/65 07/16/2017 1:18 PM CDT Pulse 55 07/16/2017 1:18 PM CDT Temperature 36.7 ??C (98 ??F) 07/16/2017 1:18 PM CDT Respiratory Rate - - Oxygen Saturation 95% 07/16/2017 1:18 PM CDT Inhaled Oxygen Concentration - - Weight 88.5 kg (195 lb) 07/16/2017 1:18 PM CDT Height 170.2 cm (5' 7 ) 07/16/2017 1:18 PM CDT Body Mass Index 30.54 07/16/2017 1:18 PM CDT documented in this encounter Plan of Treatment Not on file documented as of this encounter Visit Diagnoses Diagnosis Encounter for sterilization Sterilization documented in this encounter
--- OUTSIDE RECORDS SUMMARY | 2024-04-09 23:33 | XMS_ITS | Encounter Summary ---
Author Organization [facility] Healthcare Address [address] [place] [address] Care Team Providers Care Tipple Engineer Name Role Phone Unavailable Primary Care Provider Unavailabl e Encounter Details Date Type Department Care Team (Latest Contact Info) Description 06/09/2009 1:50 PM NAIL ASSEMBLY MACHINE OPERATOR - 06/09/2009 3:32 PM NAIL ASSEMBLY MACHINE OPERATOR Hospital Encounter [facility], Benton Solis MD [address] [place] [id number] Guillermo Lujan MD [address] [place] [address] Contusion of finger; Struck accidentally by falling object; Place of occurrence, home Social History Tobacco Use Types Packs/Day Years Used Date Smoking Tobacco: Never Assessed Comments Unknown Sex and Gender Information Value Date Recorded Sex Assigned at Not on file Legal Sex Female 1:18 AM NAIL ASSEMBLY MACHINE OPERATOR Gender Identity Not on file Sexual Orientation Not on file documented as of this encounter Plan of Treatment Not on file documented as of this encounter Visit Diagnoses Diagnosis Contusion of finger Struck accidentally by falling object Place of occurrence, home documented in this encounter
--- OUTSIDE RECORDS SUMMARY | 2024-04-09 23:33 | XMS_ITS | Encounter Summary ---
Author Organization [facility] Healthcare Address [address] [place] [address] Care Team Providers Care Mental Health Assistant Name Role Phone Jay Barrett MD Primary Care Provider [phone] Reason for Visit * Reason Onset Date Comments IUD/Nexplanon 07/01/2023 Encounter Details Date Type Department Care Team ([facility] st Contact Info) Description 07/01/2023 Telephone [facility] [address] [place] [address] Erma Galeano, DO [address] [address] IUD/Nexplanon Social History Tobacco Use Types Packs/Day Years Used Date Smoking Tobacco: Every Day Cigarettes 0.5 14 Started: 2010 Personal Safety Answer Date Recorded Getting School Help Needed Not on file Comments No Sex and Gender Information Value Date Recorded Sex Assigned at Not on file 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 Mirena delivered need to schedule insert. documented in this encounter Plan of Treatment Not on file documented as of this encounter Visit Diagnoses Not on filedocumented in this encounter Care Teams Mental Health Assistant Relationship Specialty Start Date End Date Jay Barrett MD PCP - General 06/21/18 documented as of this encounter
--- OUTSIDE RECORDS SUMMARY | 2024-04-09 23:33 | XMS_ITS | Encounter Summary ---
Author Organization [facility] Healthcare Address [address] [place] [address] Care Team Providers Care Tableau Analyst Name Role Phone Jay Barrett MD Primary Care Provider [phone] Encounter Details Date Type Department Care Team ([facility] st Contact Info) Description 06/11/2023 Orders Only [facility] [address] [place] [address] Erma Galeano DO [address] [place] [address] Menorrhagia with irregular cycle (Primary Dx) Social History Tobacco Use Types Packs/Day Years Used Date Smoking Tobacco: Every Day Cigarettes 0.5 14 Started: 2010 Personal Safety Answer Date Recorded Getting School Help Needed Not on file Comments No Sex and Gender Information Value Date Recorded Sex Assigned at Not on file 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 Gender Identity Not on file Sexual Orientation Not on file Occupation Industry Job Start Date Job End Date [employer] Not on file Not on file Not o n file documented as of this encounter Plan of Treatment Scheduled Orders Name Type Priority Associated Diagnoses Orde r Schedule Testosterone Lab Routine Menorrhagia with irregular cycle Expected: 06/14/2023, Expires: 06/10/2024 TSH Lab Routine Menorrhagia with irregular cycle Expected: 06/14/2023, Expires: 06/10/2024 documented as of this encounter Visit Diagnoses Diagnosis Menorrhagia with irregular cycle- Primary documented in this encounter Care Teams Tableau Analyst Relationship Specialty Start Date End Date Jay Barrett MD PCP - General 06/21/18 documented as of this encounter
--- OUTSIDE RECORDS SUMMARY | 2024-04-09 23:33 | XMS_ITS | Encounter Summary ---
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 [phone] [facility] Same Day/Emergency Care: [address] [phone] DENTAL CLINICS FOR LOW-INCOME AND UNINSURED PATIENTS INCLUDING MEDICAID For more information about clinics in your area that perform all types of dental services, please visit the [facility] or call their referral line at [phone]. If you live in [place] or close proximity to [place], [place], you may be able to receive services at the [facility]. [facility] [address] [place] [address] Must live in [facility] or [facility] Must be over 60 [facility] [address] [facility] (M, W-F ; ) [phone] [facility] [address] (M-W, F 8530; 11-8) [phone] [facility] [address] (, , , F 8530; 0) [phone] Visits start at $50 [facility] [address] [facility] [address] All clinic hours: (, , , F [phone]; W 830-7) (Sa 9-1 @ Milly Florence???[facility] 1717 [facility] clinics: [phone] Visits start at $35 [facility] [address] [place], [place] [phone] (20 years and younger) [address] [place], [place] [phone] [facility] [place] [address] [place], [place] [phone] [facility] [address] [place], [place] [phone] [place] [address] (M,W,F 8-5;, 8-8; 8-1) [phone] [facility] [address] (M,W-F 830-5; [id number];9-1) [phone] Must be a [facility] patient [facility] [address] Dukes [phone] [place] Marianne Spencer [address] [facility] [phone] [facility] 5541 [facility] [phone] Visits start at $40 Walk in Clinic 8-11am, 1-3pm Gurwinder Bello DDS [address] [place], [place] [phone] Declan Gill DDS [address] [place], [place] [phone] [facility] ([facility] Residents only) [address] [place] [facility] [phone] [place] [address] [address] [facility] [address] [address] [facility] [address] [facility] [address] (M-W, F 8-5; 8-6) [phone] [facility] [address] (M, W-F 8-5; 8-6) [phone] [facility] [address] (M, Tu, Th, F 8-5; W 8-6) [phone] Sliding scale fee based on income [facility] [address] [place], [place] [phone] Jacobo Blanco, [place], [place] [address] [place], [place] [phone] Didi Chase, DMD [address] [facility] [address] [place], [place] [phone] [facility] [address] [place], [place] [phone] [facility] [address] [facility] [address] Must be a [facility] patient Cindy Siu [address] [place], [place] [phone] Keyla Sinclair, DMD [address] [place] [address] [facility] [place] [facility] [address], [place]. [address] [facility] [address] [place], [place] [phone] [facility] esters and emulsifiers supervisor Waylon Mejia Michael [address] [facility] [address] [place] [address] Oral [facility] [place] Farmer [address] [facility] [address] [place] [address] Issa Queen [address] [place] [address] [facility] Blaine Tan [address] [facility] [address] [place] [address] [phone] Dante Linares [address] [place], [place]. [address] Thank you for allowing us to take care of you at [facility]. Please follow up with your primary care physician or specialist, as soon as possible, and ideally within 7 days. Please take any new medications as prescribed. Please return to the emergency department for worsening of your symptoms or any new problems which may arise. It is mandatory that you follow up, as recommended, with a primary care physician or specialist, per your discharge paperwork.You have received emergency care only at your visit today, an this is nota substitute for ongoing care, further evaluation, or treatment. Therefore, follow-up as directed is not optional, but mandatory. This ensures that any incidental abnormal radiographic and laboratoryfindings are evaluated appropriately. Return immediately for any new symptoms, worsening of symptoms, or persistent symptoms. We are open20/10 and will take care of you. Do not drink, drive, or operate machinery while taking Tramadol, as this is a narcotic and can makeyou sleepy or unstable * Attachments The following attachments cannot be sent through Care Everywhere. * Dental Abscess (AfterCare(R) Instructions(ER/ED)) (Malawian) documented in this encounter Medications at Time of Discharge chlorhexidine (PERIDEX) 0.12 % solution Apply 15 mL to the mouth or throat 2 (two) times a day 120 mL 08/20/2023 naproxen (NAPROSYN) 500 mg tablet Take 1 tablet (500 mg total) by mouth 2 (two) times a day with meals 30 tablet 08/20/2023 traMADoL (ULTRAM) 50 mg tablet Take 1 tablet (50 mg total) by mouth every 6 (six) hours for 3 days 12 tablet 08/20/2023 amoxicillin-clavu lanate (Augmentin) 875-125 mg per tablet Take 1 tablet by mouth 2 (two) times a day for 7 days 14 tablet 08/20/2023 08/27/2023 predniSONE (DELTASONE) 50 mg tablet Take 1 tablet (50 mg) by mouth daily for 5 days 5 tablet 08/20/2023 08/25/2023 documented as of this encounter Ordered Prescriptions Prescription Sig Dispense Quantity Refills Last Filled Start Date End Date traMADoL (ULTRAM) 50 mg tablet Take 1 tablet (50 mg total) by mouth every 6 (six) hours for 3 days 12 tablet 08/20/2023 chlorhexidine (PERIDEX) 0.12 % solution Apply 15 mL to the mouth or throat 2 (two) times a day 120 mL 08/20/2023 naproxen (NAPROSYN) 500 mg tablet Take 1 tablet (500 mg total) by mouth 2 (two) times a day with meals 30 tablet 08/20/2023 amoxicillin-clavul anate (Augmentin) 875-125 mg per tablet Take 1 tablet by mouth 2 (two) times a day for 7 days 14 tablet 08/20/2023 08/27/2023 predniSONE (DELTASONE) 50 mg tablet Take 1 tablet (50 mg) by mouth daily for 5 days 5 tablet 08/20/2023 08/25/2023 documented in this encounter Discharge Disposition Disposition Code Departure Means Destination Discharge to home or self care documented in this encounter ED Notes * Letitia Jorgensen PA - 08/20/2023 8:13 AM CDTAssociated Order(s): Incision and Drainage Images from the original note were not included. CHIEF COMPLAINT: Chief Complaint Patient presents with Dental Pain HPI 9:02 AM Malika Florentino is a 33 y.o. female presenting to the ED c/o L sided dental pain. Pt states has chronically bad teeth but has had pain to her back L molars since Thursday. No fever, chills. States painful to eat or sleep. Does not have a dentist. PCP: Jay Barrett MD PAST MEDICAL HISTORY No past medical history on file. PAST SURGICAL HISTORY Past Surgical History: Procedure Laterality Date CHOLECYSTECTOMY 2010 TUBAL LIGATION Bilateral 2018 FAMILY HISTORY No family history on file. MEDICATIONS GIVEN IN THE ED Medications BUPivacaine-EPINEPHrine (MARCAINE with EPI) 0.25 %-1:200,000 preservative free injection 10 mL (hasno administration in time range) amoxicillin-clavulanate (AUGMENTIN) 875-125 mg per tablet 875 mg of amoxicillin (875 mg of amoxicillin oral Given 08/20/23828) sodium chloride 0.9% bolus 1,000 mL (1,000 mL intravenous New Bag 08/20/23828) ketorolac (TORADOL) 30 mg/mL injection 15 mg (15 mg intravenous Given 08/20/23828) CURRENT HOME MEDICATIONS Current Facility-Administered Medications: amoxicillin-clavulanate (AUGMENTIN) 875-125 mg per tablet 875 mg of amoxicillin, 875 mg of amoxicillin, oral, BID, Letitia Jorgensen PA, 875 mg of amoxicillin at 08/20/23 0829 BUPivacaine-EPINEPHrine (MARCAINE with EPI) 0.25 %-1:200,000 preservative free injection 10 mL, 10 mL, infiltration, Once, Letitia Jorgensen PA Current Outpatient Medications: amoxicillin-clavulanate (Augmentin) 875-125 mg per tablet, Take 1 tablet by mouth 2 (two) times a day for 7 days, Disp: 14 tablet, Rfl: 0 chlorhexidine (PERIDEX) 0.12 % solution, Apply 15 mL to the mouth or throat 2 (two) times a day, Disp: 120 mL, Rfl: 0 naproxen (NAPROSYN) 500 mg tablet, Take 1 tablet (500 mg total) by mouth 2 (two) times a day with meals, Disp: 30 tablet, Rfl: 0 predniSONE (DELTASONE) 50 mg tablet, Take 1 tablet (50 mg) by mouth daily for 5 days, Disp: 5 tablet, Rfl: 0 traMADoL (ULTRAM) 50 mg tablet, Take 1 tablet (50 mg total) by mouth every 6 (six) hours for 3 days, Disp: 12 tablet, Rfl: 0 ALLERGIES No Known Allergies SOCIAL HISTORY Social History Tobacco Use Smoking status: Every Day Current packs/day: 0.50 Average packs/day: 0.5 packs/day for 13.4 years (6.7 ttl pk-yrs) Types: Cigarettes Start date: 2010 Smokeless tobacco: Not on file Substance and Sexual Activity Drug use: Yes Types: Marijuana Comment: Monthly Sexual activity: Yes Partners: Male control/protection: Tubal Ligation Alcohol Use: Not on file PHYSICAL EXAM TRIAGE VITAL SIGNS: ED Triage Vitals [08/20/23 0800] Temp Pulse Resp BP SpO2 36.9 ??C (98.4 ??F) (!) 132 18 145/97 100 % Temp src Heart Rate Source Patient Position BP Location FiO2 (%) Oral Pulse Oximetry Sitting Right arm -- Height Height Method Weight Weight Method 1.702 m (5' 7 ) Stated 81.6 kg (180 lb) Stated Physical Exam Vitals and nursing note reviewed. Constitutional: General: She is not in acute distress. Appearance: She is well-developed. Comments: Pleasant female, no acute distress HENT: Head: Normocephalic and atraumatic. Mouth/Throat: Comments: Small fluctuant periapical abscesses noted. Very mild L sided facial edema Eyes: Conjunctiva/sclera: Conjunctivae normal. Cardiovascular: Rate and Rhythm: Normal rate and regular rhythm. Heart sounds: Normal heart sounds. No murmur heard. Pulmonary: Effort: Pulmonary effort is normal. No respiratory distress. Breath sounds: Normal breath sounds. Abdominal: General: Bowel sounds are normal. There is no distension. Palpations: Abdomen is soft. Tenderness: There is no abdominal tenderness. There is no guarding. Musculoskeletal: Cervical back: Neck supple. Skin: General: Skin is warm and dry. Neurological: Mental Status: She is alert and oriented to person, place, and time. LABS Labs Reviewed CBC WITH AUTO DIFFERENTIAL Result Value WBC 7.8 Hgb 14.1 Hct 42.4 Plt 276 MPV 9.3 RBC 5.04 MCV 84.1 MCH 28.0 MCHC 33.3 RDW CV 14.7 RDW SD 45.0 NRBC abs 0.00 COMPREHENSIVE METABOLIC PANEL Sodium 141 Potassium, pl 4.1 Chloride 106 CO2 23 Anion gap 12 BUN 10 Creatinine 0.79 Glucose 103 Calcium 9.1 Bilirubin, total 0.4 Protein, pl 7.3 Albumin 4.6 Alk phos 59 ALT 9 AST 21 SEPSIS LACTATE WITH REFLEX Sepsis Lactate 1.1 DIFFERENTIAL AUTO Neutrophil abs 5.0 Imm gran abs 0.0 Lymphocyte abs 2.2 Monocyte abs 0.5 Eosinophil abs 0.1 Basophil abs 0.0 Neutrophil pct 63.8 Imm gran pct 0.1 Lymphocyte pct 28.7 Monocyte pct 6.2 Eosinophil pct 0.8 Basophil pct 0.4 EGFR eGFR >90 POCT HCG, URINE RADIOLOGY Impression: NA EKG NA ED COURSE/MEDICAL DECISION MAKING Differential diagnosis included but not limited to Patient not immunosuppressed. No evidence of tooth fracture, avulsion, or bleeding socket. No evidence of ANUG, Allen???s angina No evidence of gingival hyperplasia or concern for drug reaction. Pt with periapical abscesses, drained without complication. Rx NSAIDS, ABX Disposition: Discharge home. Discussed return precautions for odontogenic infections and other dental pain emergencies. Will provide dental clinic list. Patient's medical records were reviewed. Incision and Drainage Date/Time: 08/20/2023 9:01 AM Performed by: Letitia Jorgensen PA Authorized by: Kervin Shankar DO RN Notified of Procedure: yes Informed consent: Risks, benefits, alternatives discussed Patient's stated name/ matches armband: Yes Type: Abscess Location: Mouth Mouth location: Vestibule of mouth Anesthesia method: Local infiltration Local anesthetic: Bupivacaine 0.5% WITH epi Incision types: Stab incision Drainage: Purulent Drainage amount: Scant Wound treatment: Wound left open Packing materials: None Patient tolerance of procedure: Tolerated well, no immediate complications FINAL IMPRESSION Dental abscess DISPOSITION: Home All findings were discussed with patient. Pt agreeable with plan. Non toxic appearing, vitals stable. Patient stable for discharge home. Given return to ER precautions Close outpatient follow-up with a low threshold to return has been mandated, concerning symptoms have been emphasized in detail, and this patient expresses understanding PATIENT INSTRUCTED TO FOLLOW UP No follow-up provider specified. DISCHARGE MEDICATIONS Your medication list START taking these medications Instructions Last Dose Given Next Dose Due amoxicillin-clavulanate 875-125 mg per tablet Commonly known as: Augmentin Take 1 tablet by mouth 2 (two) times a day for 7 days chlorhexidine 0.12 % solution Commonly known as: PERIDEX Apply 15 mL to the mouth or throat 2 (two) times a day naproxen 500 mg tablet Commonly known as: NAPROSYN Take 1 tablet (500 mg total) by mouth 2 (two) times a day with meals predniSONE 50 mg tablet Commonly known as: DELTASONE Take 1 tablet (50 mg) by mouth daily for 5 days traMADoL 50 mg tablet Commonly known as: ULTRAM Take 1 tablet (50 mg total) by mouth every 6 (six) hours for 3 days STOP taking these medications HYDROcodone-acetaminophen 5-325 mg per tablet Commonly known as: NORCO ibuprofen 800 mg tablet Commonly known as: GARY RG Where to Get Your Medications These medications were sent to [facility]/pharmacy #[id number] [facility] [address] [facility] [address] [facility] [address] amoxicillin-clavulanate 875-125 mg per tablet chlorhexidine 0.12 % solution naproxen 500 mg tablet predniSONE 50 mg tablet traMADoL 50 mg tablet This examination was transcribed using the [employer] voice recognition system without human digital media analyst. In an effort to expedite patient care, this report has not been adjusted for typographical, grammatical, and syntax by a trained medical oncology physician. Letitia Jorgensen PA 08/20/23901 Cosigned by Kervin Shankar DO at 08/20/2023 10:10 AM CDT * Gisell Alvarez RN - 08/20/2023 8:11 AM CDT Pt to ED with c/o abscess to my back tooth that started hurting on Thursday. +swelling to left sideof face. Denies n/v/d, fever or chills. Reports does not have a dentist currently. documented in this encounter Plan of Treatment Not on file documented as of this encounter Procedures Procedure Name Priority Date/Time Associated Diagnosis Comments DE DRG ABSC BECK TENDER HMTMA VESTIBULE MOUTH SMPL Routine 08/20/2023 9:01 AM CDT SEPSIS LACTATE WITH REFLEX STAT 08/20/2023 8:21 AM CDT EGFR STAT 08/20/2023 8:21 AM CDT DIFFERENTIAL AUTO STAT 08/20/2023 8:2 1 AM CDT CBC WITH AUTO DIFFERENTIAL STAT 08/20/2023 8:21 AM CDT COMPREHENSIVE METABOLIC PANEL STAT 08/20/2023 8:21 AM CDT documented in this encounter Results * DE DRG ABSC BECK TENDER HMTMA VESTIBULE MOUTH SMPL (08/20/2023 9:01 AM CDT) Narrative Kervin Shankar DO - 08/20/2023 9:01 AM CDT Letitia Jorgensen PA ? 08/20/2023 ??9:02 AM Incision and Drainage Date/Time: 08/20/2023 9:01 AM Performed by: Letitia Jorgensen PA Authorized by: Kervin Shankar, ?? RN Notified of Procedure: yes ?? Informed consent: ??Risks, benefits, alternatives discussed Patient's stated name/ matches armband: ??Yes Type: ??Abscess Location: ??Mouth Mouth location: ??Vestibule of mouth Anesthesia method: ??Local infiltration Local anesthetic: ??Bupivacaine 0.5% WITH epi Incision types: ??Stab incision Drainage: ??Purulent Drainage amount: ??Scant Wound treatment: ??Wound left open Packing materials: ??None Patient tolerance of procedure: ??Tolerated well, no immediate complications us Kervin Shankar DO IN CLINIC/BEDSIDE ORDERABLE S Final Result * eGFR (08/20/2023 8:21 AM CDT) eGFR >90 >=60 mL/min/1. 73 m2 Comment: Interpretive Data Reference Interval Normal ?>/= [...] of Race in Diagnosing Kidney Disease, JASN 2020). The CKD-EPI equation should not be used for patients with unstable renal function and has not been validated in children and those over 70. Current interpretive data was last reviewed 2021. Blood 08/20/2023 8:21 AM CDT 08/20/2023 8:28 AM CDT us Letitia FRAZIER LAB BLOOD ORDERABLES Final R esult [facility] [address] [facility] Department [place] [address] * Differential, auto (08/20/2023 8:21 AM CDT) Neutrophil abs 5.0 1.5 - 6.5 K/cumm Imm gran abs 0.0 0.0 - 0.1 K/cumm [facility] Lymphocyte abs 2.2 0.8 - 3.3 K/cumm [facility] Monocyte abs 0.5 0.2 - 0.8 K/cumm [facility] Eosinophil abs 0.1 0.0 - 0.5 K/cumm [facility] Basophil abs 0.0 0.0 - 0.1 K/cumm [facility] Neutrophil pct 63.8 % [facility] Comment: Interpretive Data Percent cell count reference ranges are not reported, since discordance with absolute values may lead to misinterpretation of CBC data. Current Interpretive Data was last revised on 2017. Imm gran pct 0.1 % [facility] Comment: Interpretive Data Percent cell count reference ranges are not reported, since discordance with absolute values may lead to misinterpretation of CBC data. Current Interpretive Data was last revised on 2017. Lymphocyte pct 28.7 % [facility] Comment: Interpretive Data Percent cell count reference ranges are not reported, since discordance with absolute values may lead to misinterpretation of CBC data. Current Interpretive Data was last revised on 2017. Monocyte pct 6.2 % [facility] Comment: Interpretive Data Percent cell count reference ranges are not reported, since discordance with absolute values may lead to misinterpretation of CBC data. Current Interpretive Data was last revised on 2017. Eosinophil pct 0.8 % [facility] Comment: Interpretive Data Percent cell count reference ranges are not reported, since discordance with absolute values may lead to misinterpretation of CBC data. Current Interpretive Data was last revised on 2017. Basophil pct 0.4 % [facility] Comment: Interpretive Data Percent cell count reference ranges are not reported, since discordance with absolute values may lead to misinterpretation of CBC data. Current Interpretive Data was last revised on 2017. Blood 08/20/2023 8:21 AM CDT 08/20/2023 8:28 AM CDT Letitia FRAZIER LAB BLOOD ORDERABLES Final R esult Performing Organization Address City/[facility] Co de Phone Number [address] [place] [employer] [place] [address] * Sepsis Lactate w/ Reflex (08/20/2023 8:21 AM CDT) [facility] Sepsis Lactate 1.1 0.7 - 2.0 mmol/L Blood 08/20/2023 8:21 AM CDT 08/20/2023 8:28 AM CDT Letitia FRAZIER LAB BLOOD ORDERABLES Final R esult Performing Organization Address City/[facility] Co de Phone Number [address] [place] [employer] [place] [address] * Comprehensive metabolic panel (08/20/2023 8:21 AM CDT) Pathologist [facility] Sodium 141 135 - 145 mmol/L Potassium, pl 4.1 3.3 - 4.9 mmol/L [facility] Chloride 106 97 - 110 mmol/L [facility] CO2 23 22 - 32 mmol/L [facility] Anion gap 12 2 - 15 mmol/L [facility] BUN 10 6 - 25 mg/dL [facility] Creatinine 0.79 0.60 - 1.10 mg/dL [facility] Glucose 103 70 - 199 mg/dL [facility] Comment: Interpretive Data Fasting glucose >/= 126 [...] classification and Diagnosis of Diabetes Diabetes Care 202; 46: S19-S40. Current interpretive data was last revised 2022. Calcium 9.1 8.5 - 10.3 mg/dL [facility] Bilirubin, total 0.4 0.1 - 1.2 mg/dL [facility] Protein, pl 7.3 6.5 - 8.5 g/dL [facility] Albumin 4.6 3.5 - 5.0 g/dL [facility] Alk phos 59 40 - 130 Units/L [facility] ALT 9 7 - 45 Units/L [facility] AST 21 10 - 45 Units/L [facility] Blood 08/20/2023 8:21 AM CDT 08/20/2023 8:28 AM CDT us Letitia FRAZIER LAB BLOOD ORDERABLES Final R esult [facility] [address] [facility] Department [place] [address] * CBC with auto differential (08/20/2023 8:21 AM CDT) [facility] WBC 7.8 3.8 - 9.9 K/cumm Hgb 14.1 11.9 - 15.5 g/dL [facility] Hct 42.4 35.6 - 45.5 % [facility] Plt 276 150 - 400 K/cumm [facility] MPV 9.3 9.1 - 12.3 fL [facility] RBC 5.04 3.90 - 5.20 M/cumm [facility] MCV 84.1 81.3 - 96.4 fL [facility] MCH 28.0 27.1 - 33.3 pg [facility] MCHC 33.3 32.3 - 35.7 g/dL [facility] RDW CV 14.7 11.1 - 14.9 % [facility] RDW SD 45.0 35.7 - 48.1 fL [facility] NRBC abs 0.00 0.00 - 0.01 K/cumm [facility] Blood 08/20/2023 8:21 AM CDT 08/20/2023 8:28 AM CDT us Letitia FRAZIER LAB BLOOD ORDERABLES Final R esult [facility] [address] [facility] Department [place] [address] documented in this encounter Visit Diagnoses Diagnosis Dental abscess- Primary Periapical abscess without sinus documented in this encounter Administered Medications Inactive Administered Medications - up to 3 most recent administrations Medication Order MAR Action Action Date Dose Rate Site amoxicillin-clavulanate (AUGMENTIN) 875-125 mg per tablet 875 mg of amoxicillin 875 mg of amoxicillin, oral, 2 times daily, First dose on Cassia 08/20/23 at 0900, Indications: Upper Respiratory/HEENT InfectionIndications:Upp er Respiratory/HEENT Infection Given 08/20/2023 8:29 AM CDT 875 mg of amoxicillin BUPivacaine-EPINEPHrine (MARCAINE with EPI) 0.25 %-1:200,000 preservative free injection 10 mL 10 mL, infiltration, Once, On Cassia 08/20/23 at 0814, For 1 dose Given 08/20/2023 8:48 AM CDT 10 mL ketorolac (TORADOL) 30 mg/mL injection 15 mg 15 mg, intravenous, Once, On Cassia 08/20/23 at 0814, For 1 dose, For Adult IV push, administer over 15 seconds Given 08/20/2023 8:29 AM CDT 15 mg sodium chloride 0.9% bolus 1,000 mL 1,000 mL, intravenous, Once, On Cassia 08/20/23 at 0814, For 1 dose New Bag 08/20/2023 8:29 AM CDT 1,000 mL documented in this encounter Discontinued Medications Medication Sig Discontinue Reason Start Date End Da te HYDROcodone-acetaminophe n (NORCO) 5-325 mg per tabletIndications:Pain Take 1 tablet by mouth every 6 (six) hours as needed for pain 05/26/2022 08/20/2023 ibuprofen (ADVIL,MOTRIN) 800 mg tablet Take 1 tablet (800 mg total) by mouth 3 (three) times a day 05/26/2022 08/20/2023 documented as of this encounter Active and Recently Administered Medications Times are shown in CDT. Scheduled Medication Order 08/18/2023 08/19/2023 08/20/2023 amoxicillin-clavulanate (AUGMENTIN) 875-125 mg per tablet 875 mg of amoxicillin (CANCELED) 875 mg of amoxicillin, oral, 2 times daily, First dose on Cassia 08/20/23 at 0900, Indications: Upper Respiratory/HEENT Infection 0829 (Given - Provid er: Selena Brito RN) BUPivacaine-EPINEPHrine (MARCAINE with EPI) 0.25 %-1:200,000 preservative free injection 10 mL (COMPLETED) 10 mL, infiltration, Once, On Cassia 08/20/23 at 0814, For 1 dose 0848 (Given - Provid er: Beverly Rayo RN) ketorolac (TORADOL) 30 mg/mL injection 15 mg (COMPLETED) 15 mg, intravenous, Once, On Cassia 08/20/23 at 0814, For 1 dose, For Adult IV push, administer over 15 seconds 0829 (Given - Provid er: Selena Brito RN) sodium chloride 0.9% bolus 1,000 mL (COMPLETED) 1,000 mL, intravenous, Once, On Cassia 08/20/23 at 0814, For 1 dose 0829 (New Bag - Prov ider: Selena Brito RN)0917 (Stopped - Provider: Beverly Rayo RN) documented in this encounter Care Teams Tape Keller Operator Relationship Specialty Start Date End Date Jay Barrett MD PCP - General 06/21/18 documented as of this encounter
--- OUTSIDE RECORDS SUMMARY | 2024-04-09 23:33 | XMS_ITS | Encounter Summary ---
Author Organization [facility] Healthcare Address [address] [place] [address] Care Team Providers Care Blocking Machine Operator Second Name Role Phone Unavailable Primary Care Provider Unavailabl e Encounter Details Date Type Department Care Team (Late st Contact Info) Description 11/20/2010 11:18 PM CDT - 11/21/2010 12:41 AM CDT Hospital Encounter [facility] Gurwinder Lozano MD [address] [address] Guillermo Lujan MD [address] [place] [address] Simple chronic bronchitis (HCC); Acute pharyngitis; Tobacco use disorder; Alcohol abuse Social History Tobacco Use Types Packs/Day Years Used Date Smoking Tobacco: Never Assessed Comments Unknown Sex and Gender Information Value Date Recorded Sex Assigned at Not on file 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
--- OUTSIDE RECORDS SUMMARY | 2024-04-09 23:33 | XMS_ITS | Encounter Summary ---
Author Organization [facility] Address [address] [place] [address] Phone Care Team Providers Care Division Operations Specialist Name Role Phone Jay Barrett MD Primary Care Provider [phone] Encounter Details Date Type Department Care Team (Late st Contact Info) Description 06/21/2018 Orders Only [facility] [place], [place] Will Oneal MD [address] [place] [address] Social History Tobacco Use Types Packs/Day Years Used Date Smoking Tobacco: Never Assessed Comments Unknown Sex and Gender Information Value Date Recorded Sex Assigned at Not on file 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 Final Report Patient Name: MALIKA LAN : ??1990 (Age: 27) Gender: ??F Address: ??[address] [place] [address] [address] [facility] #: [id number] Service: DEFAULT Location: GI Lab [facility] Patient Type: Same Day Service ? Taken: 06/21/2018 Received: 06/21/2018 Accessioned: 06/21/2018 Reported: 06/22/2018 Physician(s): Will Oneal M.D. Diagnosis: A) Colon, random endoscopic biopsies: - Unremarkable colon with multiple benign lymphoid aggregates, negative for microscopic colitis B) Sigmoid colon polyp, endoscopic biopsy: - Tubular adenoma - No high grade dysplasia Raisa Llanos M.D. Report Electronically Reviewed and Signed Out By ??Raisa Llanos M.D. 06/22/2018 12:51:13 Specimen(s) Received: A: Random colon bxs R/O microscopic colitis B: Sigmoid colon polyp bx Microscopic Description: Microscopic examination is performed. Clinical History: Abd'l pain, diarrhea, change in bowel habits, abnormal imaging Normal colon except for sessile 7 mm sigmoid polyp Colonoscopy with bxs Gross Description A) The specimen container is labeled with the patient's name and random colon BXs r/o microscopic colitis . ??Received in formalin are multiple fragments of soft, pink-segal tissue measuring 0.8 x 0.8 x 0.2 cm in aggregate. ??The specimen is submitted in toto in cassette A1. B) The specimen container is labeled with the patient's name and sigmoid colon polyp BX . ??Received in formalin are two fragments of soft pink-segal tissue measuring 0.4 x 0.3 x 0.2 cm in aggregate. ??The specimen is submitted in toto in cassette B1. mr/06/21/2018 09:24 ??Francisca Medina, MS, PA (ASC us Will Oneal MD LAB PATHOLOGY ORDERABLES F inal Result documented in this encounter Visit Diagnoses Not on filedocumented in this encounter Care Teams Division Operations Specialist Relationship Specialty Start Date End Date Jay Barrett MD PCP - General 06/21/18 documented as of this encounter
--- OUTSIDE RECORDS SUMMARY | 2024-04-09 23:33 | XMS_ITS | Encounter Summary ---
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
--- OUTSIDE RECORDS SUMMARY | 2024-04-09 23:33 | XMS_ITS | Encounter Summary ---
Author Organization [facility] Healthcare Address [address] [place] [address] Care Team Providers Care Security Controls Assessor Name Role Phone Unavailable Primary Care Provider Unavailabl e Encounter Details Date Type Department Care Team (Late st Contact Info) Description 05/23/2009 12:06 PM CLAY MOLDER - 05/23/2009 11:59 PM CLAY MOLDER Hospital Encounter [facility] Ashely Restrepo MD [phone] [facility] [place] [address] Acute pancreatitis; Other specified abnormal findings of blood chemistry Social History Tobacco Use Types Packs/Day Years Used Date Smoking Tobacco: Never Assessed Comments Unknown Sex and Gender Information Value Date Recorded Sex Assigned at Not on file Legal Sex Female 1:18 AM CLAY MOLDER Gender Identity Not on file Sexual Orientation Not on file documented as of this encounter Plan of Treatment Not on file documented as of this encounter Visit Diagnoses Diagnosis Acute pancreatitis Other specified abnormal findings of blood chemistry documented in this encounter
--- OUTSIDE RECORDS SUMMARY | 2024-04-09 23:33 | XMS_ITS | Encounter Summary ---
Author Organization [facility] Healthcare Address [address] [place] [address] Care Team Providers Care Manager Sound Name Role Phone Unavailable Primary Care Provider Unavailabl e Encounter Details Date Type Department Care Team (Late st Contact Info) Description 01/05/2009 7:09 AM CDT - 01/05/2009 9:33 AM CDT Hospital Encounter [facility] Gurwinder Lozano MD [address] [place] [address] Tietze's disease Social History Tobacco Use Types Packs/Day Years Used Date Smoking Tobacco: Never Assessed Comments Unknown Sex and Gender Information Value Date Recorded Sex Assigned at Not on file 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
--- OUTSIDE RECORDS SUMMARY | 2024-04-09 23:33 | XMS_ITS | Encounter Summary ---
Author Organization [facility] Healthcare Address [address] [place] [address] Care Team Providers Care Bookkeeping Machine Operator Name Role Phone Unavailable Primary Care Provider Unavailabl e Encounter Details Date Type Department Care Team (Late st Contact Info) Description 05/18/2009 7:59 PM STUDENT SERVICES DIRECTOR - 05/18/2009 11:59 PM STUDENT SERVICES DIRECTOR Hospital Encounter [facility] Abdominal pain Social History Tobacco Use Types Packs/Day Years Used Date Smoking Tobacco: Never Assessed Comments Unknown Sex and Gender Information Value Date Recorded Sex Assigned at Not on file Legal Sex Female 1:18 AM STUDENT SERVICES DIRECTOR Gender Identity Not on file Sexual Orientation Not on file documented as of this encounter Plan of Treatment Not on file documented as of this encounter Visit Diagnoses Diagnosis Abdominal pain Abdominal pain, unspecified site documented in this encounter
--- OUTSIDE RECORDS SUMMARY | 2024-04-09 23:33 | XMS_ITS | Encounter Summary ---
Author Organization [facility] Healthcare Address [address] [place] [address] Care Team Providers Care Commercial Account Officer Name Role Phone Unavailable Primary Care Provider Unavailabl e Encounter Details Date Type Department Care Team (Late st Contact Info) Description 05/18/2009 9:20 PM NEEDLE LOOM OPERATOR HELPER - 05/22/2009 3:00 PM NEEDLE LOOM OPERATOR HELPER Hospital Encounter [facility] Pa Salgado MD [address] [place] [address] Calculus of gallbladder; Acute pancreatitis; Tobacco use disorder; Hypopotassemia; Abnormal results of liver function studies Social History Tobacco Use Types Packs/Day Years Used Date Smoking Tobacco: Never Assessed Comments Unknown Sex and Gender Information Value Date Recorded Sex Assigned at Not on file Legal Sex Female 1:18 AM NEEDLE LOOM OPERATOR HELPER Gender Identity Not on file Sexual Orientation Not on file documented as of this encounter Plan of Treatment Not on file documented as of this encounter Visit Diagnoses Diagnosis Calculus of gallbladder Calculus of gallbladder without mention of cholecystitis or obstruction Acute pancreatitis Tobacco use disorder Hypopotassemia Abnormal results of liver function studies Nonspecific abnormal results of liver function study documented in this encounter
--- OUTSIDE RECORDS SUMMARY | 2024-04-09 23:33 | XMS_ITS | Encounter Summary ---
Author Organization [facility] Healthcare Address [address] [place] [address] Care Team Providers Care Feed Preparation Operator Name Role Phone Unavailable Primary Care Provider Unavailabl e Encounter Details Date Type Department Care Team (Late st Contact Info) Description 05/25/2009 12:32 PM ULTRASONIC CLEANER - 05/25/2009 11:59 PM ULTRASONIC CLEANER Hospital Encounter [facility] Ashely Restrepo MD [phone] [facility] [place] [address] Acute pancreatitis Social History Tobacco Use Types Packs/Day Years Used Date Smoking Tobacco: Never Assessed Comments Unknown Sex and Gender Information Value Date Recorded Sex Assigned at Not on file Legal Sex Female 1:18 AM ULTRASONIC CLEANER Gender Identity Not on file Sexual Orientation Not on file documented as of this encounter Plan of Treatment Not on file documented as of this encounter Visit Diagnoses Diagnosis Acute pancreatitis documented in this encounter
== END 2024-04-02 16:00 | disposition home or self-care (01) ==
PROVIDERS: Emergency Provider Nurse Practitioner; PCP Emergency Medicine
DX: J06.9 Acute upper respiratory infection, unspecified (principal); F17.200 Nicotine dependence, unspecified, uncomplicated; Z20.822 Contact with and (suspected) exposure to COVID-19
CPT/HCPCS: 87426; 87804; 99212; G0463

== ENCOUNTER 2025-01-20 16:55 | Emergency (ER) | payer BC, SELFPAY ==
--- OUTSIDE RECORDS SUMMARY | 2025-01-20 17:00 | XMS_ITS | Clinical Summary ---
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 Name Role Phone Jay Barrett MD Primary Care Provider [phone] Erma Galeano DO Unavailable [phone] Allergies No known active allergies Medications ketoconazole (NIZORAL) 2 % shampoo Apply topically 2 (two) times a week Apply to damp skin, lather, leave on 5 minutes, and rinse 120 mL 3 5 Active docusate sodium (COLACE) 100 mg capsuleIndicati ons:constipatio n Take 1 capsule (100 mg total) by mouth 2 (two) times a day with a glass of water 60 capsule 5 Active polyethylene glycol (MIRALAX) 17 gram/dose bulk powderIndicatio ns:constipation Take 17 g by mouth daily as needed (Constipation) 200 g 1 5 Active Active Problems Problem Noted Date Diagnosed Date Alcohol-induced acute pancre atitis without infection or necrosis 12/08/2024 Elevated liver enzymes 12/08/2024 Abnormal uterine bleeding 08/29/2024 Pityriasis versicolor 06/08/2023 Encounters Date Type Department Care Team Description 12/15/2024 [facility] Post Discharge Follow up phone call [facility] [address] [place] [address] Comfort Reyez 12/09/2024 1:40 PM CDT Office Visit [facility] [address] [place] [address] Erma Galeano DO S/P laparoscopic hysterectomy (Primary Dx) 12/08/2024 12:40 AM CDT - 12/09/2024 11:27 AM CDT Hospital Encounter [facility] [address] [place] [address] Luisa Richardson MD Abbas, Shazia, MD 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 [address] [place] [address] Erma Galeano DO S/P laparoscopic hysterectomy (Primary Dx) 11/04/2024 Telephone [facility] [address] [facility] [address] [place] [address] Erma Galeano DO 10/31/2024 8:17 AM CDT Anesthesia Event [facility] 1 [place] [address] Archie Swain MD Reynolds, Ethan Emerson, MD 10/31/2024 7:45 AM CDT - 10/31/2024 10:45 AM CDT Surgery [facility] 1 [place] [address] Erma Galeano DO LAPAROSCOPIC HYSTERECTOMY - ABDOMINAL 10/31/2024 6:02 AM CDT - 10/31/2024 11:49 AM CDT Hospital Encounter [facility] 1 [place] [address] Erma Galeano DO Abnormal uterine bleeding Discharge Disposition: Discharge to home or self care from Last 3 Months Immunizations Immunization Administration Dates Next Due DT 10/19/1995 DTP [...] - 03/29/2018 Bilateral CHOLECYSTECTOMY 03/30/2009 - 03/29/2010 Medical History Medical History Date Comments Menstrual problem 2018 Family History Medical History Relation Name Comments Diabetes Brother Vadim Hypertension Father Obesity Mother Relation Name Status Comments Brother Vadim Alive Father Alive Mother Alive Social History Tobacco Use Types Packs/Day Years Used Date Smoking Tobacco: Former Cigarettes 0.5 14.8 S tarted: 03/30/2010 Vaping AUDIT-C Answer Date Recorded Q1: How often do you have a drink containing alc ohol? Monthly or less 10/31/2024 Q2: How many drinks containi ng alcohol do you have on a typical day when you are drinking? 1 or 2 10/31/2024 Q3: How often do you have si x or more drinks on one occasion? Never 10/31/2024 Personal Safety Answer Date Recorded Have you ever been in or are you currently in a harmful physical or emotional relationship or is someone making you feel afraid or unsafe? Denies 12/07/2024 Comments No Sex and Gender Information Value Date Recorded Sex Assigned at Not on file Legal Sex Female 1:18 AM [employer] Gender Identity Not on file Sexual Orientation Not on file Occupation Industry Job Start Date Job End Date Not on file Not on file Not on file Not on file Obstetrics History Para Term AB IAB [...] Sign Reading Time Taken Comments Blood Pressure 124/72 12/09/2024 1:27 PM CDT Pulse 64 12/08/2024 11:07 PM CDT Temperature 36.8 C (98.2 F) 12/08/2024 11:07 PM CDT Respiratory Rate 16 12/08/2024 11:07 PM CDT Oxygen Saturation 100% 12/08/2024 11:07 PM CDT Inhaled Oxygen Concentration - - Weight 80.7 kg (178 lb) 12/09/2024 1:27 PM CDT Height 170.2 cm (5' 7) 12/08/2024 4:21 AM CDT Body Mass Index 27.88 12/08/2024 4:21 AM CDT Plan of Treatment Health Maintenance Due Date Last Done Comments Depression Screening 1990 Varicella Vaccines (1 of 2 - 13+ 2-dose series) 07/23/2003 HPV Vaccines (1 - 3-dose SCDM series) 2017 DTaP/Tdap/Td Vaccine (6 - Td or Tdap) 08/15/2024 08/15/2014, 10/19/1995, 08/17/1995, Additional history exists Covid-19 Vaccine (2024- season) 2024 09/07/2020, 08/17/2020 Influenza Vaccine (#1) 2024 , 01/24/2018, 01/23/2018, Additional history exists Regular Well Visit/Exam 18-64 06/20/2025 06/20/2024, 06/11/2023 Hepatitis B Screening Completed 01/28/1996 , 10/19/1995, 08/17/1995 Cervical Cancer Screening Discontinued 2024, 06/20/2024, 06/11/2023, Additional history exists Hepatitis C Screening Completed 12/08/2024 Pneumococcal vaccine <65 Aged Out No longer eligible based on patient's age to complete this topic Procedures Procedure Name Priority Date/Time Associated Diagnosis Comments AMMONIA Routine 12/09/2024 7:33 AM CDT EGFR Routine 12/09/2024 4:12 AM CDT DIFFERENTIAL AUTO Routine 12/09/2024 4:1 2 AM CDT CBC WITH AUTO DIFFERENTIAL Routine 12/09/2024 4:12 AM CDT COMPREHENSIVE METABOLIC PANEL Routine 12/09/2024 4:12 AM CDT LIPASE Routine 12/09/2024 4:12 AM CDT PROTIME-INR Add-On 12/08/2024 4:43 PM CDT SMOOTH MUSCLE ANTIBODY, QUALITATIVE Add-On 12/08/2024 4:43 PM CDT KRISSY QUALITATIVE WITH REFLEX TO KRISSY QUANTITATIVE Add-On 12/08/2024 4:43 PM CDT HEPATITIS PANEL, ACUTE Timed 12/08/2024 4:43 PM CDT US RUQ IP Routine 12/08/2024 4:03 PM CDT CERULOPLASMIN Add-On 12/08/2024 7:07 AM CDT EGFR Routine 12/08/2024 7:07 AM CDT DIFFERENTIAL AUTO Routine 12/08/2024 7:0 7 AM CDT CBC WITH AUTO DIFFERENTIAL Routine 12/08/2024 7:07 AM CDT MAGNESIUM Routine 12/08/2024 7:07 AM CDT COMPREHENSIVE METABOLIC PANEL Routine 12/08/2024 7:07 AM CDT SEPSIS LACTATE WITH REFLEX Routine 12/08/2024 7:[address] ABDOMEN PELVIS W CONTRAST ED 12/08/2024 1:48 AM CDT URINALYSIS, MICROSCOPIC ONLY STAT 12/08/2024 12:55 AM CDT URINALYSIS AND REFLEX TO MICROSCOPIC AND CULTURE STAT 12/08/2024 12:55 AM CDT ETHANOL Add-On 12/07/2024 9:10 PM CDT EGFR STAT 12/07/2024 9:10 PM CDT DIFFERENTIAL AUTO STAT 12/07/2024 9:1 0 PM CDT LIPASE STAT 12/07/2024 9:10 PM CDT COMPREHENSIVE METABOLIC PANEL STAT 12/07/2024 9:10 PM CDT CBC WITH AUTO DIFFERENTIAL STAT 12/07/2024 9:10 PM CDT SURGICAL PATHOLOGY Routine 10/31/2024 10 :42 AM CDT Abnormal uterine bleeding FL AN ELECTIVE ENDOTRACHEAL AIRWAY Routine 10/31/2024 8:30 AM CDT SALPINGECTOMY 10/31/2024 8:16 AM CDT Abnormal uterine bleeding LAPAROSCOPIC HYSTERECTOMY - ABDOMINAL 10/31/2024 8:16 AM CDT Abnormal uterine bleeding URINALYSIS, MICROSCOPIC ONLY STAT 10/31/2024 6:31 AM CDT DIFFERENTIAL AUTO STAT 10/31/2024 6:3 1 AM CDT ANTIBODY SCREEN STAT 10/31/2024 6:31 AM CDT ABO/RH STAT 10/31/2024 6:31 AM CDT APTT STAT 10/31/2024 6:31 AM CDT PROTIME-INR STAT 10/31/2024 6:31 AM CDT TYPE AND SCREEN STAT 10/31/2024 6:31 AM CDT CBC WITH AUTO DIFFERENTIAL STAT 10/31/2024 6:31 AM CDT URINALYSIS AND REFLEX TO MICROSCOPIC AND CULTURE STAT 10/31/2024 6:31 AM CDT POCT HCG, URINE Routine 10/31/2024 6:07 AM CDT HIGH RISK HPV DNA DETECTION WITH GENOTYPING Routine 06/20/2024 12:38 PM CDT Screening for malignant neoplasm of cervix from Last 3 Months or Most Recently Relevant to Health Maintenance Results * Ammonia (12/09/2024 7:33 AM CDT) Ammonia 29 <=50 mcmol/L [facility] ([place]) Blood 12/09/2024 7:33 AM CDT 12/09/2024 7:36 AM CDT us Rubi Jackson MD LAB BLOOD ORDERABLES Final Resul t [facility] ([place]) 1 [facility] Department [place] [address] * eGFR (12/09/2024 4:12 AM CDT) eGFR >90 >=60 mL/min/1. 73 m2 Comment: Interpretive Data Reference Interval Normal >/= 90 mL/min/1.73m2 Mildly decreased* 60 - 89 mL/min/1.73m2 Mildly to moderately decreased 45 - 59 mL/min/1.73m2 Moderately to severely decreased 30 - 44 mL/min/1.73m2 Severely decreased 15 - 29 mL/min/1.73m2 Kidney Failure < 15 mL/min/1.73m2 *Relative to young adult level Estimated glomerular [...] interpretive data was last reviewed 2021. Blood 12/09/2024 4:12 AM CDT 12/09/2024 8:28 AM CDT us Nidhi FRAZIER LAB BLOOD ORDERABLES Fin al Result [facility] ([place] [facility]) 1 [facility] Department [place] [address] * (ABNORMAL) Differential, auto (12/09/2024 4:12 AM CDT) Neutrophil abs 2.58 1.50 - 6.50 K/cumm Imm gran abs 0.01 0.00 - 0.10 K/cumm [facility] ([place]) Lymphocyte abs 3.45(H) 0.80 - 3.30 K/cumm [facility] ([place]) Monocyte abs 0.42 0.20 - 0.80 K/cumm [facility] ([place]) Eosinophil abs 0.11 0.00 - 0.50 K/cumm [facility] ([place]) Basophil abs 0.02 0.00 - 0.10 K/cumm [facility] ([place]) Neutrophil pct 39.0 % [facility] ([place]) Comment: Interpretive Data Percent cell count reference ranges are not reported, since discordance with absolute values may lead to misinterpretation of CBC data. Current Interpretive Data was last revised on 2017. Imm gran pct 0.2 % [facility] ([place]) Comment: Interpretive Data Percent cell count reference ranges are not reported, since discordance with absolute values may lead to misinterpretation of CBC data. Current Interpretive Data was last revised on 2017. Lymphocyte pct 52.4 % [facility] ([place]) Comment: Interpretive Data Percent cell count reference ranges are not reported, since discordance with absolute values may lead to misinterpretation of CBC data. Current Interpretive Data was last revised on 2017. Monocyte pct 6.4 % [facility] ([place]) Comment: Interpretive Data Percent cell count reference ranges are not reported, since discordance with absolute values may lead to misinterpretation of CBC data. Current Interpretive Data was last revised on 2017. Eosinophil pct 1.7 % [facility] ([facility]) Comment: Interpretive Data Percent cell count reference ranges are not reported, since discordance with absolute values may lead to misinterpretation of CBC data. Current Interpretive Data was last revised on 2017. Basophil pct 0.3 % [facility] ([place]) Comment: Interpretive Data Percent cell count reference ranges are not reported, since discordance with absolute values may lead to misinterpretation of CBC data. Current Interpretive Data was last revised on 2017. Blood 12/09/2024 4:12 AM CDT 12/09/2024 8:28 AM CDT us Nidhi FRAZIER LAB BLOOD ORDERABLES Fin al Result [facility] ([place]) 1 [facility] Department [place] [address] * (ABNORMAL) CBC with auto differential (12/09/2024 4:12 AM CDT) WBC 6.59 3.80 - 9.90 K/cumm Hgb 12.0 11.9 - 15.5 g/dL [facility] ([place]) Hct 35.2(L) 35.6 - 45.5 % [facility] ([place]) Plt 179 150 - 400 K/cumm [facility] ([place]) MPV 10.1 9.1 - 12.3 fL [facility] ([place]) RBC 3.88(L) 3.90 - 5.20 M/cumm [facility] ([place]) MCV 90.7 81.3 - 96.4 fL [facility] ([place]) MCH 30.9 27.1 - 33.3 pg [facility] ([place]) MCHC 34.1 32.3 - 35.7 g/dL [facility] ([place]) RDW CV 12.8 11.1 - 14.9 % [facility] ([place]) RDW SD 42.0 35.7 - 48.1 fL [facility] ([place]) NRBC abs 0.00 0.00 - 0.01 K/cumm [facility] ([place]) Blood 12/09/2024 4:12 AM CDT 12/09/2024 8:28 AM CDT us Nidhi FRAZIER LAB BLOOD ORDERABLES Fin al Result [facility] 1 [facility] [employer] [place] [address] * Lipase (12/09/2024 4:12 AM CDT) Pathologist [facility] Lipase 32 10 - 99 Units/L [facility] Blood 12/09/2024 4:12 AM CDT 12/09/2024 4:40 AM CDT us Rubi Jackson MD LAB BLOOD ORDERABLES Final Resul t Performing Organization Address City/[facility]/ZIP Co de Phone Number [facility] ([place]) 1 [facility] [place] [address] * (ABNORMAL) Comprehensive metabolic panel (12/09/2024 4:12 AM CDT) Sodium 140 135 - 145 mmol/L [facility] Potassium, pl 3.9 3.3 - 4.9 mmol/L [facility] Chloride 109 97 - 110 mmol/L [facility] CO2 18(L) 22 - 32 mmol/L [facility] Anion gap 13 2 - 15 mmol/L [facility] BUN 9 6 - 25 mg/dL [facility] Creatinine 0.70 0.60 - 1.10 mg/dL [facility] ([place]) Glucose 78 70 - 199 mg/dL [facility] ([place]) Comment: Interpretive Data Fasting glucose >/= 126 mg/dl is diagnostic for diabetes. Fasting is defined as no caloric intake [...] classification and Diagnosis of Diabetes Diabetes Care 2021; 46: S19-S40. Current interpretive data was last revised 2022. Calcium 8.5 8.5 - 10.3 mg/dL [facility] ([place]) Bilirubin, total 0.8 0.1 - 1.2 mg/dL [facility] ([place]) Protein, pl 5.4(L) 6.5 - 8.5 g/dL [facility] ([place]) Albumin 3.5 3.5 - 5.0 g/dL [facility] ([place]) Alk phos 47 40 - 130 Units/L [facility] ([place]) ALT 105(H) 7 - 45 Units/L [facility] ([place]) AST 116(H) 10 - 45 Units/L [facility] ([place]) Blood 12/09/2024 4:12 AM CDT 12/09/2024 8:28 AM CDT Nidhi FRAZIER LAB BLOOD ORDERABLES Fin al Result [facility] ([place]) 1 [facility] Department [place] [address] * KRISSY ab ql w/rflx to KRISSY qn (12/08/2024 4:43 PM CDT) KRISSY Negative Comment: Interpretive Data Normal range for KRISSY Qualitative Antibody = Negative. 1. KRISSY is performed using indirect immunofluorescence against HEp-2 cells 2. KRISSY titers are performed on all positive qualitative results. 3. A significantly positive KRISSY result is defined as a positive nuclear fluorescence at a titer of 1:80 or greater. 4. 15% of normal people above age 65 have significantly positive KRISSY results. 5% or less of normal people age 65 or under have significantly positive KRISSY results. Current interpretive data was last revised on 2019. Testing performed by: [facility], [address] [place] [address]., [id number] Blood 12/08/2024 4:43 PM CDT 12/09/2024 11:04 AM CDT Pool Felder MD LAB BLOOD ORDERABLES Final Resul t Performing Organization Address City/[facility]/ZIP Co de Phone Number [facility] ([place]) 1 [facility] [place] [address] * Smooth muscle antibody, qualitative (12/08/2024 4:43 PM CDT) Anti-smooth muscle Negative Negative Comment:Testing performed by : [facility], [address] [place]., [address] Blood 12/08/2024 4:43 PM CDT 12/09/2024 10:49 AM CDT Pool Felder MD LAB BLOOD ORDERABLES Final Resul t Performing Organization Address City/[facility]/ZIP Co de Phone Number [facility] ([place]) 1 [place] [address] * Hepatitis panel, acute Blood (12/08/2024 4:43 PM CDT) Hep A IgM Nonreactive Nonreactive Comment: Interpretive Data: If Hep A IgM Ab is reported as Equivocal, a new sample should be drawn in two weeks for testing. Current interpretive data was last revised on 19. Testing performed by: [facility], [address] [place] [address]., [id number] Hep B core IgM Nonreactive Nonreactive [facility]us [facility] ([place]) Comment: Interpretive Data If HepB Core IgM Ab is reported as Equivocal, a new sample should be drawn in two weeks for testing. Current interpretive data was last revised on 19. Testing performed by: [facility], [address] [place] [address]., [id number] Hep C Ab Nonreactive Nonreactive [facility] ([place]) Comment: Interpretive Data Nonreactive: Antibodies to HCV not detected. Does NOT exclude the possibility of recent exposure to HCV. Equivocal: Equivocal for HCV antibodies. Supplemental molecular testing will be automatically performed to determine infection status in accordance with current CDC screening recommendations. Reactive: Positive for HCV antibodies. This may represent current or past HCV infection. Supplemental molecular testing will be automatically performed to determine current infection status in accordance with current CDC screening recommendations. Interpretive data was last revised on 2019. Testing performed by: [facility], [address] [place] [address]., [id number] HepBsAg Nonreactive Nonreactive [facility] ([place]) Comment:Testing performed by : [facility], [address] [place] [address]., [id number] Blood 12/08/2024 4:43 PM CDT 12/09/2024 9:40 AM CDT us Pool Felder MD LAB MICROBIOLOGY - GENERAL ORDER KRYSTINA Final Result [facility] ([place]) 1 [facility] Department [place] [address] * Protime-INR (12/08/2024 4:43 PM CDT) PT 12.9 10.2 - 13.5 sec [facility] ([place]) INR 1.14 0.90 - 1.20 [facility] ([place]) Comment: Interpretive data Oral anticoagulant therapeutic ranges: Venous thromboembolism prophylaxis or treatment: 2.0-3.0 CARDIOLOGY Standard range: 2.0-3.0 High-intensity range: 2.5-3.5 Refer to indication-specific guidelines for appropriate target ranges for prosthetic heart valve replacement. Current interpretive data was last revised on 2019. Blood 12/08/2024 4:43 PM CDT 12/08/2024 4:48 PM CDT us Pool Felder MD LAB BLOOD ORDERABLES Final Resul t [facility] [place] 1 [facility] Department [place] [address] * US RUQ (12/08/2024 4:03 PM CDT) Anatomical Region Laterality Modality Abdomen N/A Ultrasound 12/08/2024 5:43 PM CDT Narrative 12/08/2024 6:06 PM CDT EXAM DESCRIPTION: US RUQ REASON FOR STUDY: abnormal hepatic function tests TECHNIQUE: Ultrasound of the right upper quadrant of the abdomen was performed with grayscale and color doppler. COMPARISON: CT abdomen pelvis 12/08/2024 FINDINGS: PANCREAS: Visualized portions of the pancreas are within normal limits. Portions of the pancreatic body and tail are obscured due to bowel gas. LIVER: Hepatomegaly measuring 20.4 cm with heterogeneous echotexture. No focal lesion identified. The main portal vein is patent with antegrade flow. GALLBLADDER: Surgically absent BILIARY: There is no intrahepatic or extrahepatic biliary ductal dilatation. Common bile duct measures 0.5 cm in diameter. RIGHT KIDNEY: Normal size. Normal echogenicity. No solid mass or cyst. No hydronephrosis. Measures 11.3 cm in length. OTHER: No other significant findings. IMPRESSION: Hepatomegaly, nonspecific. No focal lesion. THIS IS AN ELECTRONICALLY VERIFIED FINAL REPORT 12/08/2024 6:06 PM - Electronically signed by Tangela Daniels M.D. FT: FT Report ID: [id number] Reading Location: [id number] Procedure Note Tangela Angelo MD - 12/08/2024 EXAM DESCRIPTION: US RUQ REASON FOR STUDY: abnormal hepatic function tests TECHNIQUE: Ultrasound of the right upper quadrant of the abdomen wasperformed with grayscale and color doppler. COMPARISON: CT abdomen pelvis 12/08/2024 FINDINGS: PANCREAS: Visualized portions of the pancreas are within normal limits. Portions of the pancreatic body and tail are obscured due to bowel gas. LIVER: Hepatomegaly measuring 20.4 cm with heterogeneous echotexture.No focal lesion identified. The main portal vein is patent with antegradeflow. GALLBLADDER: Surgically absent BILIARY: There is no intrahepatic or extrahepatic biliary ductaldilatation. Common bile duct measures 0.5 cm in diameter. RIGHT KIDNEY: Normal size. Normal echogenicity. No solid mass or cyst.No hydronephrosis. Measures 11.3 cm in length. OTHER: No other significant findings. IMPRESSION: Hepatomegaly, nonspecific. No focal lesion. THIS IS AN ELECTRONICALLY VERIFIED FINAL REPORT 12/08/2024 6:06 PM - Electronically signed by Tangela Daniels M.D. FT: FT Report ID: [id number] Reading Location: [place] [address] Pool Felder MD IMG US PROCEDURES Final Result * Sepsis Lactate w/ Reflex (12/08/2024 7:07 AM CDT) Pathologist [facility] Sepsis Lactate 0.7 0.7 - 2.0 mmol/L Blood 12/08/2024 7:07 AM CDT 12/08/2024 7:18 AM CDT us Luisa Richardson MD LAB BLOOD ORDERABLES Fi nal Result [facility] 1 [facility] Department of Laboratories [place], [place] [id number] * eGFR (12/08/2024 7:07 AM CDT) eGFR >90 >=60 mL/min/1. 73 m2 Comment: Interpretive Data Reference Interval Normal >/= 90 mL/min/1.73m2 Mildly decreased* 60 - 89 mL/min/1.73m2 Mildly to moderately decreased 45 - 59 mL/min/1.73m2 Moderately to severely decreased 30 - 44 mL/min/1.73m2 Severely decreased 15 - 29 mL/min/1.73m2 Kidney Failure < 15 mL/min/1.73m2 *Relative to young adult level Estimated glomerular [...] interpretive data was last reviewed 2021. Blood 12/08/2024 7:07 AM CDT 12/08/2024 7:18 AM CDT us Luisa Richardson MD LAB BLOOD ORDERABLES [facility] Result [facility] ([place]) 1 [facility] Department [place] [address] * Differential, auto (12/08/2024 7:07 AM CDT) Neutrophil abs 3.56 1.50 - 6.50 K/cumm Imm gran abs 0.01 0.00 - 0.10 K/cumm [facility] ([place]) Lymphocyte abs 1.22 0.80 - 3.30 K/cumm [facility] ([place]) Monocyte abs 0.40 0.20 - 0.80 K/cumm [facility] ([place]) Eosinophil abs 0.03 0.00 - 0.50 K/cumm [facility] ([place]) Basophil abs 0.02 0.00 - 0.10 K/cumm [facility] ([place]) Neutrophil pct 67.9 % [facility] ([place]) Comment: Interpretive Data Percent cell count reference ranges are not reported, since discordance with absolute values may lead to misinterpretation of CBC data. Current Interpretive Data was last revised on 2017. Imm gran pct 0.2 % [facility] ([place]) Comment: Interpretive Data Percent cell count reference ranges are not reported, since discordance with absolute values may lead to misinterpretation of CBC data. Current Interpretive Data was last revised on 2017. Lymphocyte pct 23.3 % [facility] ([facility]) Comment: Interpretive Data Percent cell count reference ranges are not reported, since discordance with absolute values may lead to misinterpretation of CBC data. Current Interpretive Data was last revised on 2017. Monocyte pct 7.6 % [facility] ([place]) Comment: Interpretive Data Percent cell count reference ranges are not reported, since discordance with absolute values may lead to misinterpretation of CBC data. Current Interpretive Data was last revised on 2017. Eosinophil pct 0.6 % [facility] ([place]) Comment: Interpretive Data Percent cell count reference ranges are not reported, since discordance with absolute values may lead to misinterpretation of CBC data. Current Interpretive Data was last revised on 2017. Basophil pct 0.4 % [facility] ([place]) Comment: Interpretive Data Percent cell count reference ranges are not reported, since discordance with absolute values may lead to misinterpretation of CBC data. Current Interpretive Data was last revised on 2017. Blood 12/08/2024 7:07 AM CDT 12/08/2024 7:18 AM CDT us Luisa Richardson MD LAB BLOOD ORDERABLES Fi nal Result [facility] ([place]) 1 [facility] Department [place] [address] * (ABNORMAL) CBC with auto differential (12/08/2024 7:07 AM CDT) WBC 5.24 3.80 - 9.90 K/cumm Hgb 12.6 11.9 - 15.5 g/dL [facility] ([place]) Hct 35.5(L) 35.6 - 45.5 % [facility] ([place]) Plt 237 150 - 400 K/cumm [facility] ([place]) MPV 9.6 9.1 - 12.3 fL [facility] ([place]) RBC 4.12 3.90 - 5.20 M/cumm [facility] ([place]) MCV 86.2 81.3 - 96.4 fL [facility] ([place]) MCH 30.6 27.1 - 33.3 pg [facility] ([place]) MCHC 35.5 32.3 - 35.7 g/dL [facility] ([place]) RDW CV 12.4 11.1 - 14.9 % [facility] ([place]) RDW SD 38.8 35.7 - 48.1 fL [facility] ([place]) NRBC abs 0.00 0.00 - 0.01 K/cumm [facility] ([facility]) Blood 12/08/2024 7:07 AM CDT 12/08/2024 7:18 AM CDT us Luisa Richardson MD LAB BLOOD ORDERABLES Fi nal Result RASHEED JULIEN (CAMP SHERMAN) 1 [facility] [place] [address] * Ceruloplasmin (12/08/2024 7:07 AM CDT) Ceruloplasmin 17.9 16.0 - 45.0 mg/dL Comment:Testing performed by : [facility], 1 [facility], [place]., [address] Blood 12/08/2024 7:07 AM CDT 12/09/2024 10:49 AM CDT us Pool Felder MD LAB BLOOD ORDERABLES Final Resul t Performing Organization Address City/[facility] Co de Phone Number RASHEED JULIEN (CAMP SHERMAN) [address] [place] [address] [place] [employer] [place] [address] * Magnesium (12/08/2024 7:07 AM CDT) Magnesium 1.8 1.4 - 2.5 mg/dL RASHEED JULIEN (CAMP SHERMAN) Blood 12/08/2024 7:07 AM CDT 12/08/2024 7:18 AM CDT us Luisa Richardson MD LAB BLOOD ORDERABLES Fi nal Result [facility] ([place]) 1 [facility] Department [place] [address] * (ABNORMAL) Comprehensive metabolic panel (12/08/2024 7:07 AM CDT) Sodium 142 135 - 145 mmol/L [facility] ([place]) Potassium, pl 4.3 3.3 - 4.9 mmol/L [facility] ([place]) Chloride 108 97 - 110 mmol/L [facility] ([place]) CO2 23 22 - 32 mmol/L [facility] ([place]) Anion gap 11 2 - 15 mmol/L [facility] ([place]) BUN 7 6 - 25 mg/dL [facility] ([place]) Creatinine 0.72 0.60 - 1.10 mg/dL [facility] ([place]) Glucose 105 70 - 199 mg/dL [facility] ([place]) Comment: Interpretive Data Fasting glucose >/= 126 mg/dl is diagnostic for diabetes. Fasting is defined as no caloric intake [...] interpretive data was last revised 2022. Calcium 8.7 8.5 - 10.3 mg/dL [facility] ([place]) Bilirubin, total 0.5 0.1 - 1.2 mg/dL [facility] ([place]) Protein, pl 6.3(L) 6.5 - 8.5 g/dL [facility] ([place]) Albumin 4.2 3.5 - 5.0 g/dL [facility] ([place]) Alk phos 58 40 - 130 Units/L [facility] ([place]) ALT 193(H) 7 - 45 Units/L [facility] ([place]) AST 495(H) 10 - 45 Units/L [facility] ([place]) Blood 12/08/2024 7:07 AM CDT 12/08/2024 7:18 AM CDT us Luisa Richardson MD LAB BLOOD ORDERABLES Fi nal Result RASHEED JULIEN [place]) 4 [facility] Department [place] [address] * CT Abdomen Pelvis W Contrast (12/08/2024 1:48 AM CDT) Anatomical Region Laterality Modality Body N/A Computed Tomogra phy 12/08/2024 1:52 AM CDT Narrative 12/08/2024 1:58 AM CDT EXAM DESCRIPTION: CT ABDOMEN PELVIS W CONTRAST REASON FOR STUDY: Abdominal pain, acute, nonlocalized Abdominal pain with tightness around the lower rib cage onset around 1900. TECHNIQUE: CT scan of the abdomen and pelvis performed with intravenous and without oral contrast using helical scanning technique with dynamic intravenous contrast injection. Reconstructed coronal and sagittal MPR images reviewed. All images stored on PACS. Automated exposure control was used as a dose optimization technique for this examination. CONTRAST TYPE/DOSE: 75mL of IOVERSOL 350 MG IODINE/ML INTRAVENOUS SYRINGE injected via intravenous COMPARISON: 08/14/2020 FINDINGS: LOWER CHEST: Lung bases are clear. Heart size normal. No effusion. LIVER/BILIARY: Mild hepatic steatosis. Biliary tree normal in caliber. GALLBLADDER: Absent. SPLEEN: Normal. PANCREAS: Normal. ADRENAL GLANDS: Normal. KIDNEYS/URINARY TRACT: Unremarkable. GI: Stomach and small bowel appear normal. Colon and appendix unremarkable. OTHER ABDOMINAL/PELVIS: Major vascular structures are grossly patent and normal in caliber. No enlarged lymph node or free fluid. MSK: Normal. BODY WALL: Unremarkable. IMPRESSION: No acute abnormality identified. THIS IS AN ELECTRONICALLY VERIFIED FINAL REPORT 12/08/2024 1:58 AM - Electronically signed by Hernan Devries M.D. AR: ARMIDA Report ID: [id number] Reading Location: [place] [address] Procedure Note Hernan Devries MD - 12/08/2024 EXAM DESCRIPTION: CT ABDOMEN PELVIS W CONTRAST REASON FOR STUDY: Abdominal pain, acute, nonlocalized Abdominal pain with tightness around the lower rib cage onset [id number]. TECHNIQUE: CT scan of the abdomen and pelvis performed with intravenousand without oral contrast using helical scanning technique with dynamic intravenous contrast injection. Reconstructed coronal and sagittal MPRimages reviewed. All images stored on PACS. Automated exposure control was usedas a dose optimization technique for this examination. CONTRAST TYPE/DOSE: 75mL of IOVERSOL 350 MG IODINE/ML INTRAVENOUSSYRINGE injected via intravenous COMPARISON: 08/14/2020 FINDINGS: LOWER CHEST: Lung bases are clear. Heart size normal. No effusion. LIVER/BILIARY: Mild hepatic steatosis. Biliary tree normal in caliber. GALLBLADDER: Absent. SPLEEN: Normal. PANCREAS: Normal. ADRENAL GLANDS: Normal. KIDNEYS/URINARY TRACT: Unremarkable. GI: Stomach and small bowel appear normal. Colon and appendixunremarkable. OTHER ABDOMINAL/PELVIS: Major vascular structures are grossly patent and normal in caliber. No enlarged lymph node or free fluid. MSK: Normal. BODY WALL: Unremarkable. IMPRESSION: No acute abnormality identified. THIS IS AN ELECTRONICALLY VERIFIED FINAL REPORT 12/08/2024 1:58 AM - Electronically signed by Hernan Devries M.D. AR: ARMIDA Report ID: [id number] Reading Location: [place] [address] Evangelist Albert MD IM CT PROCEDURES Final Resu lt * (ABNORMAL) Urinalysis reflex to microscopic and culture Urine (12/08/2024 12:55 AM CDT) Color, ur Yellow Yellow Clarity, ur Clear Clear RASHEED Galarza (CAMP SHERMAN) Specific gravity, ur 1.022 1.003 - 1.030 RASHEED [facility] ([place]) pH, urine 6.0 RASHEED [facility] ([place]) Comment: Interpretive Data U rine pH is affected by diet, medications, systemic acid-base disturbances, and renal tubular function. pH may affect urinary stone formation. For example, urine pH below 6.0 may help reduce the tendency for calcium phosphate stones and pH greater than 6.0 may reduce the tendency for uric acid stone formation. Source: [facility] Current Interpretive Data was last revised on 2017 Protein, ur ql Trace Negative [facility] ([place]) Glucose, ur ql Negative Negative [facility] ([place]) Ketones, ur Negative Negative [facility] ([place]) Bilirubin, ur Negative Negative [facility] ([place]) Blood, ur Trace(A) Negative [facility] ([place]) Urobilinogen, ur 4.0(A) <2.0 mg/dL [facility] ([place]) Nitrite, ur Negative Negative [facility] ([place]) Leukocyte esterase, ur Negative Negative [facility] ([place]) UA reflex comment Reflex to microscopic UA will be performed. [facility] ([place]) Urine 12/08/2024 12:5 5 AM CDT 12/08/2024 12:56 AM CDT Luisa Richardson MD LAB MICROBIOLOGY - GENE RAL ORDERABLES Final Result Performing Organization Address [facility] de Phone Number RASHEED [facility] ([place]) 1 [facility] [employer] [place] [place] [address] * (ABNORMAL) Urinalysis, microscopic only (12/08/2024 12:55 AM CDT) WBC, ur 0-5 0 - 5 /HPF RBC, ur 3-5(A) 0 - 2 /HPF [facility] ([place]) Epithelial cells, squamous, ur 1-5 0 - 5 /HPF [facility] ([place]) Bacteria, ur Trace(A) [facility] ([place]) Mucous, ur Present(A) [facility] ([place]) Culture Reflex Comment Reflex conditions for urine culture (WBC >10) not met. [facility] ([place]) Urine 12/08/2024 12:5 5 AM CDT 12/08/2024 12:56 AM CDT Luisa Richardson MD LAB URINE ORDERABLES Fi nal Result Performing Organization Address City/[facility]/ZIP Co de Phone Number RASHEED [facility] ([place]) 1 [facility] [place] [place] [address] * eGFR (12/07/2024 9:10 PM CDT) eGFR >90 >=60 mL/min/1. 73 m2 Comment: Interpretive Data Reference Interval Normal >/= 90 mL/min/1.73m2 Mildly decreased* 60 - 89 mL/min/1.73m2 Mildly to moderately decreased 45 - 59 mL/min/1.73m2 Moderately to severely decreased 30 - 44 mL/min/1.73m2 Severely decreased 15 - 29 mL/min/1.73m2 Kidney Failure < 15 mL/min/1.73m2 *Relative to young adult level Estimated glomerular [...] interpretive data was last reviewed 2021. Blood 12/07/2024 9:10 PM CDT 12/07/2024 9:59 PM CDT us Luisa Richardson MD LAB BLOOD ORDERABLES nal Result [facility] 1 [facility] Department [place] [address] * Differential, auto (12/07/2024 9:10 PM CDT) Neutrophil abs 5.07 1.50 - 6.50 K/cumm Imm gran abs 0.01 0.00 - 0.10 K/cumm [facility] ([facility]) Lymphocyte abs 3.19 0.80 - 3.30 K/cumm [facility] ([facility]) Monocyte abs 0.48 0.20 - 0.80 K/cumm [facility] ([facility]) Eosinophil abs 0.10 0.00 - 0.50 K/cumm [facility] ([place]) Basophil abs 0.03 0.00 - 0.10 K/cumm [facility] ([place]) Neutrophil pct 57.2 % [facility] ([place]) Comment: Interpretive Data Percent cell count reference ranges are not reported, since discordance with absolute values may lead to misinterpretation of CBC data. Current Interpretive Data was last revised on 2017. Imm gran pct 0.1 % [facility] ([place]) Comment: Interpretive Data Percent cell count reference ranges are not reported, since discordance with absolute values may lead to misinterpretation of CBC data. Current Interpretive Data was last revised on 2017. Lymphocyte pct 35.9 % [facility] ([place]) Comment: Interpretive Data Percent cell count reference ranges are not reported, since discordance with absolute values may lead to misinterpretation of CBC data. Current Interpretive Data was last revised on 2017. Monocyte pct 5.4 % [facility] ([place]) Comment: Interpretive Data Percent cell count reference ranges are not reported, since discordance with absolute values may lead to misinterpretation of CBC data. Current Interpretive Data was last revised on 2017. Eosinophil pct 1.1 % [facility] ([place]) Comment: Interpretive Data Percent cell count reference ranges are not reported, since discordance with absolute values may lead to misinterpretation of CBC data. Current Interpretive Data was last revised on 2017. Basophil pct 0.3 % [facility] ([place]) Comment: Interpretive Data Percent cell count reference ranges are not reported, since discordance with absolute values may lead to misinterpretation of CBC data. Current Interpretive Data was last revised on 2017. Blood 12/07/2024 9:10 PM CDT 12/07/2024 9:58 PM CDT us Luisa Richardson MD LAB BLOOD ORDERABLES Fi nal Result RASHEED JULIEN ([place]) 1 [facility] Department [place] [address] * CBC with auto differential (12/07/2024 9:10 PM CDT) WBC 8.88 3.80 - 9.90 K/cumm Hgb 14.4 11.9 - 15.5 g/dL [facility] ([place]) Hct 40.6 35.6 - 45.5 % [facility] ([place]) Plt 278 150 - 400 K/cumm [facility] ([place]) MPV 10.3 9.1 - 12.3 fL [facility] ([place]) RBC 4.68 3.90 - 5.20 M/cumm [facility] ([place]) MCV 86.8 81.3 - 96.4 fL [facility] ([place]) MCH 30.8 27.1 - 33.3 pg [facility] ([place]) MCHC 35.5 32.3 - 35.7 g/dL [facility] ([place]) RDW CV 12.3 11.1 - 14.9 % [facility] ([place]) RDW SD 38.7 35.7 - 48.1 fL [facility] ([place]) NRBC abs 0.00 0.00 - 0.01 K/cumm [facility] ([place]) Blood Venous blood specimen / Unknown 12/07/2024 9:10 PM CDT 12/07/2024 9:58 PM CDT Luisa Richardson MD LAB BLOOD ORDERABLES Fi nal Result RASHEED JULIEN ([place]) 1 [facility] [place] [address] * (ABNORMAL) Lipase (12/07/2024 9:10 PM CDT) Lipase >300(H) 10 - 99 Units/L [facility] ([place]) Blood Venous blood specimen / Unknown 12/07/2024 9:10 PM CDT 12/07/2024 9:58 PM CDT Luisa Richardson MD LAB BLOOD ORDERABLES Fi nal Result RASHEED JULIEN ([place]) 1 [facility] [place] [address] * (ABNORMAL) Ethanol (12/07/2024 9:10 PM CDT) Ethanol 183(H) <=10 mg/dL [facility] ([place]) Comment: Interpretive Data Legal limit of intoxication > or = 80 mg/dL Levels > or = 400 mg/dL are potentially TOXIC. Current interpretive data was last revised on 2018. Blood 12/07/2024 9:10 PM CDT 12/08/2024 2:03 AM CDT Evangelist Albert MD LAB BLOOD ORDERABLES Final R esult [facility] ([place]) 1 [facility] Department [place] [address] * (ABNORMAL) Comprehensive metabolic panel (12/07/2024 9:10 PM CDT) Sodium 140 135 - 145 mmol/L [facility] ([place]) Potassium, pl 3.5 3.3 - 4.9 mmol/L [facility] ([place]) Chloride 104 97 - 110 mmol/L [facility] ([place]) CO2 19(L) 22 - 32 mmol/L [facility] ([place]) Anion gap 17(H) 2 - 15 mmol/L [facility] ([place]) BUN 7 6 - 25 mg/dL [facility] ([place]) Creatinine 0.73 0.60 - 1.10 mg/dL [facility] ([place]) Glucose 117 70 - 199 mg/dL [facility] ([place]) Comment: Interpretive Data Fasting glucose >/= 126 mg/dl is diagnostic for diabetes. Fasting is defined as no caloric intake [...] classification and Diagnosis of Diabetes Diabetes Care 2021; 46: S19-S40. Current interpretive data was last revised 2022. Calcium 9.2 8.5 - 10.3 mg/dL [facility] ([place]) Bilirubin, total 0.7 0.1 - 1.2 mg/dL [facility] Protein, pl 7.4 6.5 - 8.5 g/dL [facility] ([place]) Albumin 4.7 3.5 - 5.0 g/dL [facility] Alk phos 56 40 - 130 Units/L [facility] ([place]) ALT 58(H) 7 - 45 Units/L [facility] ([place]) AST 193(H) 10 - 45 Units/L [facility] Blood 12/07/2024 9:10 PM CDT 12/07/2024 9:58 PM CDT us Luisa Richardson MD LAB BLOOD ORDERABLES Fi nal Result [facility] ([facility]) [address] [place] [address] Department [place] [address] * Surgical pathology (10/31/2024 10:42 AM CDT) Tissue (Uterus with/without tubes & ovaries, Non-neoplastic) 10/31/2024 7:28 AM CDT Narrative PATHOLOGY [facility] ([place] [place]) - 11/02/2024 10:22 PM CDT EPIC results best viewed via link to PDF [facility] Department of Pathology [address] [place] [id number] Note to Patients: This report may contain [...] can answer questions and explain the details. Final Report Patient Name: NATHAN FLORENTINO Address: [address] [place] [address] Gender: F : 1990 (Age: 34) Service: Surgery Location: [facility] #: [id number] Patient Type: [facility] Taken: 10/31/2024 Received: 10/31/2024 Accessioned: 10/31/2024 Reported: 11/02/2024 Physician(s):Erma Galeano D.O. Diagnosis: Uterus bilateral fallopian tubes, laparoscopic hysterectomy and bilateral salpingectomy: - Minimal chronic inflammation, cervix. - Benign pattern, consistent with exogenous progesterone effect, endometrium. - No histopathologic abnormality, myometrium. - Subserosal leiomyoma (measuring 0.3 cm in greatest dimension), serosa. - Paratubal cysts (complete cross sections identified), bilateral fallopian tubes. Alma Sellers M.D. Report Electronically Reviewed and Signed Out By Alma Sellers M.D. 11/02/2024 22:22:43 Specimen(s) Received: A: Uterus, cervix and bilateral fallopian tubes Microscopic Description: Microscopic examination of the cervix show minimal chronic inflammation, without evidence of dysplasia or malignancy. Sections of the endometrium show a benign pattern, compatible with exogenous progesterone effect. There is stromal decidualization with small inactive appearing glands, while in other areas of glands have a somewhat secretory seven. No evidence of hyperplasia or malignancy. Sections of the myometrium are unremarkable. A single small subserosal leiomyoma without cytologic atypia, mitotic activity or necrosis is noted. Sections of the bilateral fallopian tubes, including the fimbriated ends show complete cross sections with with one tube showing multiple paratubal cysts. Clinical History: Abnormal uterine bleeding. Laparoscopic hysterectomy - abdominal. Laparoscopic bilateral salpingectomy. Gross Description: The specimen is submitted in a single formalin filled container labeled [facility] and uterus, cervix and bilateral fallopian tubes. It is a uterus with attached cervix and detached fallopian tube segments. The uterus and cervix weigh 129 g and measures 10.4 x 6.6 x 4.3 cm. The cervix is 2.7 cm in diameter with a 1.3 cm slit. The serosa is segal-pink with a single 3 mm white nodule on the anterior aspect. The uterus is bisected to show an endocervical canal, 2.4 cm in length and a triangular endometrial cavity, 3.1 x 2.7 cm. The endometrium is purple red, 3-4 mm in maximum thickness. The myometrium is segal-pink with slightly trabecular pattern, 2.5 cm in maximum thickness. The fallopian tube segments are purple-villatoro, fimbriated, 1.1 x 0.9 cm and 2.4 x 0.7 cm. Sections A1-anterior cervix; A 2-posterior cervix; A 3-anterior endomyometrium; A 4-posterior endomyometrium; A 5-serosal shavings with subserosal nodule; A 6-A 7-farm loan representative fallopian tubes. Liborio Ellis/Alma Sellers M.D. REPORT IMAGES AND SCANNED DOCUMENTS, IF INCLUDED, ONLY VIEWABLE IN PDF VERSION OF REPORT The performance characteristics of some immunohistochemical stains, fluorescence in-situ hybridization tests and immunophenotyping by flow cytometry cited in this report (if any) were determined by the Surgical Pathology Department at [facility] as part of an ongoing quality control industrial engineer program and in compliance with federally mandated regulations drawn from the Clinical Laboratory Improvement Act of 1988 (CLIA '88). Some of these tests rely on the use of analyte specific reagents and are subject to specific labeling requirements by the US Food and Drug Administration. Such diagnostic tests may only be performed in a facility that is certified by the Department of Health and Human Services as a high complexity laboratory under CLIA '88. The FDA has determined that such clearance or approval is not necessary. This test is used for clinical purposes. It should not be regarded as investigational or for research. Nevertheless, federal rules concerning the medical use of analyte specific reagents require that the following disclaimer be attached to the report: This test was developed and its performance characteristics determined by the Surgical Pathology Department [facility]. It has not been cleared or approved by the U. S. Food and Drug Administration. Note for decalcified specimens: This assay has not been validated on decalcified tissues. Results should be interpreted with caution given the possibility of false negativity on decalcified specimens us Erma Galeano DO LAB PATHOLOGY ORDERABLE S Final Result [facility]Y [facility] ([place]) 1 [place] [address] * FL AN ELECTIVE ENDOTRACHEAL AIRWAY (10/31/2024 8:30 AM CDT) Michael Hernandez CRNA - 10/31/2024 8:30 AM CDT Michael Hayes CRNA 10/31/2024 8:30 AM Airway Patient location: OR Urgency: elective Indications for airway management: anesthesia and airway protection Difficult airway: no Staff: Placed by: PLANT AND INSTRUMENT ENGINEER: Michael Hayes CRNA Emergent airway documentation: Risks and benefits discussed: yes Consent obtained: yes Consent given by: patient Airway prep: Preoxygenated: yes Patient position: sniffing Mask difficulty assessment: 1 - vent by mask Spontaneous ventilation during airway: absent Sedation level during airway: GA Final airway details: Final airway type: endotracheal airway Tube type: ETT ETT size: 6.5 mm Cuffed: yes Technique used for successful ETT placement: video laryngoscopy Devices/Methods used in placement: intubating stylet Insertion site: oral Blade type: Palmer Video blade type: Rothman Blade size: 3 Cormack-Lehane (video): grade I - full view of glottis Cuff volume: 7 mL Cuff inflated with: air ETT to lips: 21 cm Placement verified by: auscultation and CO2 detection Airway secured with: silk tape Number of attempts: 1 Ventilation between attempts: none Additional comments: Atraumatic intubation. Archie Swain MD ANESTHESIA ORDERABLES nal Result * Differential, auto (10/31/2024 6:31 AM CDT) Neutrophil abs 3.44 1.50 - 6.50 K/cumm Imm gran abs 0.02 0.00 - 0.10 K/cumm [facility] ([place]) Lymphocyte abs 2.01 0.80 - 3.30 K/cumm [facility] ([place]) Monocyte abs 0.38 0.20 - 0.80 K/cumm [facility] ([place]) Eosinophil abs 0.09 0.00 - 0.50 K/cumm [facility] ([place]) Basophil abs 0.03 0.00 - 0.10 K/cumm [facility] ([place]) Neutrophil pct 57.6 % [facility] ([place]) Comment: Interpretive Data Percent cell count reference ranges are not reported, since discordance with absolute values may lead to misinterpretation of CBC data. Current Interpretive Data was last revised on 2017. Imm gran pct 0.3 % [facility] ([place]) Comment: Interpretive Data Percent cell count reference ranges are not reported, since discordance with absolute values may lead to misinterpretation of CBC data. Current Interpretive Data was last revised on 2017. Lymphocyte pct 33.7 % [facility] ([place]) Comment: Interpretive Data Percent cell count reference ranges are not reported, since discordance with absolute values may lead to misinterpretation of CBC data. Current Interpretive Data was last revised on 2017. Monocyte pct 6.4 % [facility] ([place]) Comment: Interpretive Data Percent cell count reference ranges are not reported, since discordance with absolute values may lead to misinterpretation of CBC data. Current Interpretive Data was last revised on 2017. Eosinophil pct 1.5 % [facility] ([place]) Comment: Interpretive Data Percent cell count reference ranges are not reported, since discordance with absolute values may lead to misinterpretation of CBC data. Current Interpretive Data was last revised on 2017. Basophil pct 0.5 % [facility] ([place]) Comment: Interpretive Data Percent cell count reference ranges are not reported, since discordance with absolute values may lead to misinterpretation of CBC data. Current Interpretive Data was last revised on 2017. Blood 10/31/2024 6:31 AM CDT 10/31/2024 6:38 AM CDT Erma Galeano DO LAB BLOOD ORDERABLES Fi nal Result RASHEED JULIEN ([place]) 1 [facility] Department [place] [address] * (ABNORMAL) Urinalysis reflex to microscopic and culture Urine (10/31/2024 6:31 AM CDT) Color, ur Yellow Yellow Clarity, ur Clear Clear RASHEED Galarza ([place]) Specific gravity, ur 1.021 1.003 - 1.030 RASHEED JULIEN ([place]) pH, urine 6.0 RASHEED JULIEN ([place]) Comment: Interpretive Data U rine pH is affected by diet, medications, systemic acid-base disturbances, and renal tubular function. pH may affect urinary stone formation. For example, urine pH below 6.0 may help reduce the tendency for calcium phosphate stones and pH greater than 6.0 may reduce the tendency for uric acid stone formation. Source: [facility] [employer] Current Interpretive Data was last revised on 2017 Protein, ur ql Negative Negative [facility] ([place]) Glucose, ur ql Negative Negative [facility] ([place]) Ketones, ur Negative Negative [facility] ([place]) Bilirubin, ur Negative Negative [facility] ([place]) Blood, ur 2+(A) Negative [facility] ([place]) Urobilinogen, ur <2.0 <2.0 mg/dL [facility] ([place]) Nitrite, ur Negative Negative [facility] ([place]) Leukocyte esterase, ur Negative Negative [facility] ([place]) UA reflex comment Reflex to microscopic UA will be performed. [facility] ([place]) Urine 10/31/2024 6:31 AM CDT 10/31/2024 6:38 AM CDT us Erma Galeano DO LAB MICROBIOLOGY - GENE [facility] ORDERABLES Final Result [facility] ([place]) 1 [facility] Department [place] [address] * CBC with auto differential (10/31/2024 6:31 AM CDT) WBC 5.97 3.80 - 9.90 K/cumm Hgb 14.9 11.9 - 15.5 g/dL [facility] ([place]) Hct 42.8 35.6 - 45.5 % [facility] ([place]) Plt 281 150 - 400 K/cumm [facility] ([place]) MPV 9.6 9.1 - 12.3 fL [facility] ([place]) RBC 4.90 3.90 - 5.20 M/cumm [facility] ([place]) MCV 87.3 81.3 - 96.4 fL [facility] ([place]) MCH 30.4 27.1 - 33.3 pg [facility] ([place]) MCHC 34.8 32.3 - 35.7 g/dL [facility] RDW CV 12.4 11.1 - 14.9 % [facility] [facility] RDW SD 39.8 35.7 - 48.1 fL [facility] ([place]) NRBC abs 0.00 0.00 - 0.01 K/cumm [facility] Blood 10/31/2024 6:31 AM CDT 10/31/2024 6:38 AM CDT Erma Galeano DO LAB BLOOD ORDERABLES Fi nal Result Performing Organization Address City/[facility] Co de Phone Number [facility] ([facility]) [address] [place] [address] [place] [address] * ABO/Rh (10/31/2024 6:31 AM CDT) ABO/Rh B Positive Blood 10/31/2024 6:31 AM CDT 10/31/2024 6:38 AM CDT Narrative [facility] ([facility]) - 10/31/2024 8:15 AM CDT Has the patient had Daratumumab or Isatuximab in the past 6 months?->Unknown Erma Galeano DO LAB BLOOD BANK TEST ORD ERABLES Final Result Performing Organization Address [facility] Co de Phone Number [facility] ([facility]) [address] [place] [address] [employer] [place] [address] * (ABNORMAL) Urinalysis, microscopic only (10/31/2024 6:31 AM CDT) WBC, ur 0-5 0 - 5 /HPF RBC, ur 0-2 0 - 2 /HPF [facility] ([facility]) Epithelial cells, squamous, ur 6-10(A) 0 - 5 /HPF [facility]) Bacteria, ur Trace(A) [facility]) Mucous, ur Present(A) [facility] ([facility]) Culture Reflex Comment Reflex conditions for urine culture (WBC >10) not met. [facility] ([facility]) Urine 10/31/2024 6:31 AM CDT 10/31/2024 6:38 AM CDT Erma Hollandshivam Galeano DO LAB URINE ORDERABLES Fi nal Result Performing Organization Address [facility] Co de Phone Number [facility] ([facility]) [address] [facility] [place] [address] * (ABNORMAL) aPTT (10/31/2024 6:31 AM CDT) aPTT 27(L) 28 - 38 sec [facility] ([facility]) Comment: Interpretive Data Heparin therapeutic range: 66.0 - 100.0 seconds. Range based on correlation with therapeutic heparin activity range of 0.3 - 0.7 Units/mL. Current interpretive data was last revised on 2022. Blood 10/31/2024 6:31 AM CDT 10/31/2024 6:38 AM CDT Erma Galeano DO LAB BLOOD ORDERABLES Fi nal Result Performing Organization Address [facility] de Phone Number [facility] ([facility]) [address] [place] [address] [place] [address] * Protime-INR (10/31/2024 6:31 AM CDT) PT 11.1 9.7 - 13.0 sec [facility] INR 1.03 0.90 - 1.20 [facility] ([facility]) Comment: Interpretive data Oral anticoagulant therapeutic ranges: Venous thromboembolism prophylaxis or treatment: 2.0-3.0 CARDIOLOGY Standard range: 2.0-3.0 High-intensity range: 2.5-3.5 Refer to indication-specific guidelines for appropriate target ranges for prosthetic heart valve replacement. Current interpretive data was last revised on 2019. Blood 10/31/2024 6:31 AM CDT 10/31/2024 6:38 AM CDT Erma Galeano LAB BLOOD ORDERABLES Fi nal Result [facility] ([facility]) [address] [facility] [place] [address] * Antibody screen (10/31/2024 6:31 AM CDT) Pathologist [facility] Diana, indirect, Gel Interpretation Negative ABSC Blood 10/31/2024 6:31 AM CDT 10/31/2024 6:38 AM CDT Narrative [facility] ([facility]) - 10/31/2024 8:15 AM CDT Has the patient had Daratumumab or Isatuximab in the past 6 months?->Unknown Erma Galeano LAB BLOOD BANK TEST ORD ERABLES Final Result Performing Organization Address City/[facility]/ZIP Co de Phone Number [facility] ([facility]) [address] [place] [address] [place] [address] * POCT hCG, urine (10/31/2024 6:07 AM CDT) Pathologist [facility] HCG, ur, POC Negative Negative Lot Number [id number] QC Backgroud Clear Acceptable QC Control Line Acceptable Urine 10/31/2024 6:07 AM CDT Erma Galeano POINT OF CARE TEST ORDE RABLES Final Result * High Risk HPV DNA Detection with Genotyping (Molecular component) (06/20/2024 12:38 PM CDT) Pathologist [facility] HPV HR 16 Not Detected Not Detected [facility] Comment:Testing performed by : [facility], [address] [facility] [place]., [address] HPV HR 18 Not Detected Not Detected [facility] Comment:Testing performed by : [facility], [address] [place]., [address] HPV HR Non 16/18 Not Detected Not Detected [facility] Comment: Interpretive Data Nucleic acid amplification for detection of high-risk Human Papilloma virus (HPV) is performed by the Chanel Lazaro 6800 HPV test. This assay specifically detects HPV-16 and HPV-18 genotypes. The following HPV genotypes are detected as high-risk HPV: HPV-31, 33, 35, ,39, 45, 51, 52, 56, 58, 59, 66, and 68. This assay has been approved by the [place] Food and Drug Administration for detection of HPV in cervical specimens collected by a physician using an endocervical brush/spatula or cervical broom and placed in the ThinPrep Pap Test PreservCyt collection containers. The performance characteristics of this test have been verified by the [facility]ious [facility] laboratory. Correlate with separately reported cytology results, as applicable. Interpretive data last revised 22 Testing performed by: [facility], [address] [place]., [address] Endocervical 06/20/2024 12:3 8 PM CDT 06/21/2024 12:37 PM CDT Narrative [facility] - 06/22/2024 2:27 AM CDT Clinical history and diagnosis->Liquid-based PAP test with high risk HPV test- Z12.4 Number of vials->1 Testing type->Screening Last menstrual period (date if known)->06/17/24 Erma Galeano DO LAB BODY FLUIDS AND STO OLS ORDERABLES Final Result [facility] [address] Department [place] [address] [facility] from Last 3 Months or Most Recently Relevant to Health Maintenance [place] [address] [place] [address] [employer] ACCESS CHOICE Advance Directives For more information, please contact: [phone] * Full Code (Latest Code Status on File) Date Activated Date Inactivated Comments 12/08/2024 2:38 AM 12/09/2024 3:27 PM Care Teams [employer] Relationship Specialty Start Date End Date Jay Barrett MD PCP - General 06/21/18 Erma Galeano DO [address] [place] [address] Consulting Physician Obstetrics and Gynecology 10/31/24
[2025-01-20 17:01] VITALS: BP 135/88; PULSE 98; RESP 16; TEMP 36.8; O2SAT 100
--- NOTE | 2025-01-20 17:24 | ED_ITS ---
HPI - Ear Problem General Chief complaint: Ear Stated complaint: Left Ear Pain Time Seen by Provider: 01/20/25 17:00 Source: patient Mode of arrival: ambulatory Limitations: no limitations History of Present Illness HPI Narrative: 34 yo F presents with concern for FB in R ear. Noticed dry blood today. Friend irrigated and noticed a blood clot. No other complaints. all systems reviewed and negative except as noted above. Related Data Home Medications ?Medication ?Instructions ?Recorded ?Confirmed ?Last Taken ?Type No Home Medications 04/02/24 01/20/25 U nknown History Allergies Allergy/AdvReac Type Severity Reaction Status Date / Time No Known Allergies Allergy Unknown Verified 01/20/25 17:05 [facility] Social History Social History Smoking status: Current every day smoker Comments At time of signature, agree with nursing past medical, surgical, social and family history. There is no relevant family history pertinent to the presenting complaint. Exam Narrative: GENERAL: This is a well-nourished, well-developed patient, in no apparent distress. HEAD: normocephalic, atraumatic. EYES: PERRL. Sclera clear/white. Vision is grossly intact. EARS: External ears normal, Small abrasion noted to right ear canal with dried blood. No foreign body noted. Left ear canal is normal., TMs normal without perforation. Hearing grossly intact. NOSE: External nose normal NECK: Neck supple, non-tender without lymphadenopathy, masses or thyromegaly. CARDIOVASCULAR: Regular rate and rhythm without murmurs, gallops, or rubs. RESPIRATORY: Clear to auscultation. Breath sounds equal bilaterally. No wheezes, rales, or rhonchi. SKIN: warm, Dry, intact with no suspicious lesions or rash, good texture and turgor. NEURO: awake, alert, and oriented to person, place and time. There were no obv ious focal neurologic abnormalities. EXTREMITIES: No joint tenderness, effusion, or edema noted. Course Course Level of Care: Express Care Visit Vital Signs Vital signs: Vital Signs Temperature 36.8 C 01/20/25 17:01 Pulse Rate 98 01/20/25 17:01 Respiratory Rate 16 01/20/25 17:01 Blood Pressure 135/88 01/20/25 17:01 Pulse Oximetry 100 01/20/25 17:01 Oxygen Delivery Room Air 01/20/25 17:01 Temperature 36.8 C 01/20/25 17:01 Pulse Rate 98 01/20/25 17:01 Respiratory Rate 16 01/20/25 17:01 Blood Pressure 135/88 01/20/25 17:01 Pulse Oximetry 100 01/20/25 17:01 Oxygen Delivery Room Air 01/20/25 17:01 At time of signature, agree with nursing past medical, surgical, social and family history. There is no relevant family history pertinent to the presenting complaint. Medical Decision Making MDM Narrative Medical decision making narrative: Abrasion noted to right ear canal. Patient is well-appearing, nontoxic. Vital Signs Vital Signs: Vital Signs Temperature 36.8 C 01/20/25 17:01 Pulse Rate 98 01/20/25 17:01 Respiratory Rate 16 01/20/25 17:01 Blood Pressure 135/88 01/20/25 17:01 Pulse Oximetry 100 01/20/25 17:01 Oxygen Delivery Room Air 01/20/25 17:01 Temperature 36.8 C 01/20/25 17:01 Pulse Rate 98 01/20/25 17:01 Respiratory Rate 16 01/20/25 17:01 Blood Pressure 135/88 01/20/25 17:01 Pulse Oximetry 100 01/20/25 17:01 Oxygen Delivery Room Air 01/20/25 17:01 Discharge Plan Discharge Clinical Impression: Abrasion of right ear canal Patient Disposition: Home Condition: Stable Instructions: Abrasion (ED) Additional Instructions: There is a small abrasion to your right ear canal. Apply vaseline or aquaphor with qtip. There are no signs of infection. There is no foreign body. Patient Language: Divehi Prescriptions: No Action No Home Medications Follow-up/Referrals: Jay Barrett MD [Primary Care Provider, [facility]] Time of Disposition: 17:11
== END 2025-01-20 17:15 | disposition home or self-care (01) ==
PROVIDERS: Emergency Provider Nurse Practitioner Family; PCP Emergency Medicine
DX: S00.411A Abrasion of right ear, initial encounter (principal); X58.XXXA Exposure to other specified factors, initial encounter
CPT/HCPCS: 99211; G0463